=== PATIENT | female | born 1945 | race Caucasian/White ===

== ENCOUNTER 2020-07-06 09:27 | Outpatient (REF) | payer MEDICARE, SELFPAY ==
[2020-07-06 10:23] LABS: MANUAL DIFF FLAG NO
[2020-07-06 10:43] LABS: Basophils Percent Auto 0.5 % (0-2); Eosinophils Absolute Auto 0.2 X10*3/uL (0.0-0.4); Eosinophils Percent Auto 2.4 % (0-4); Hematocrit 47.9 % (37-47); Hemoglobin 15.5 g/dl (12.0-16.0); Imm Gran Abs Auto 0.02 X10*3/uL (0.00-0.03); Imm Gran Pct Auto 0.3 % (0.0-0.4); Lymphocytes Absolute Auto 1.7 X10*3/uL (1.2-4.9); Lymphocytes Percent Auto 22.5 % (20-40); Mean Corpuscular HGB Conc 32.4 g/dl (31.0-35.0); Mean Corpuscular Hemoglobin 30.2 pg (27.0-33.0); Mean Corpuscular Volume 93.2 fL (80-98); Mean Platelet Volume 9.7 fL (9.4-12.3); Monocytes Absolute Auto 0.4 X10*3/uL (0.1-1.2); Monocytes Percent Auto 5.6 % (2-11); Neutrophils Absolute Auto 5.2 X10*3/uL (2.0-8.3); Neutrophils Percent Auto 68.7 % (45-73); Platelet Count 205 X10*3/uL (160-400); Red Blood Count 5.14 X10*6/uL (4.20-5.50); Red Cell Distribution Width 13.8 % (11.0-16.0); White Blood Count 7.5 X10*3/uL (4.8-10.8)
[2020-07-06 11:09] LABS: Alanine Aminotransferase 9 U/L (0-31); Albumin Level 4.6 g/dL (3.5-5.0); Alkaline Phosphatase 68 U/L (39-117); Anion Gap 13 (12-20); Aspartate Amino Transferase 15 U/L (5-31); Bilirubin Direct 0.3 mg/dL (0.0-0.5); Bilirubin Total 0.5 mg/dL (0.0-1.0); Blood Urea Nitrogen 23 mg/dL (9-16); Calcium 9.2 mg/dL (8.4-10.2); Carbon Dioxide 29 mmol/L (22-29); Chloride 105 mmol/L (96-108); Cholesterol 165 mg/dL; Estimated Glomerular Filt Rate > 60; Glucose Fasting 92 mg/dL (60-99); HDL Cholesterol 52 mg/dL; LDL Cholesterol Calculated 100 mg/dl; Potassium 4.4 mmol/l (3.3-5.1); Sodium 143 mmol/L (135-145); Total Protein 6.9 g/dL (6.5-8.0); Triglycerides 66 mg/dL
[2020-07-06 11:12] LABS: Estimated Average Glucose 103 mg/dL; Hemoglobin A1c % 5.2 %
== END 2020-07-06 09:28 | disposition home or self-care (01) ==
LOC: HO.LAB 09:27
DX: I10 Essential (primary) hypertension (principal); E78.5 Hyperlipidemia, unspecified; E11.9 Type 2 diabetes mellitus without complications
CPT/HCPCS: 36415; 80053; 80061; 80076; 82248; 83036; 85025

== ENCOUNTER 2021-03-05 08:38 | Outpatient (REF) | payer MEDICARE, SELFPAY ==
[2021-03-05 09:39] LABS: MANUAL DIFF FLAG NO
[2021-03-05 09:51] LABS: Basophils Percent Auto 0.6 % (0-2); Eosinophils Absolute Auto 0.1 X10*3/uL (0.0-0.4); Eosinophils Percent Auto 1.9 % (0-4); Imm Gran Abs Auto 0.01 X10*3/uL (0.00-0.03); Imm Gran Pct Auto 0.2 % (0.0-0.4); Lymphocytes Absolute Auto 1.6 X10*3/uL (1.2-4.9); Lymphocytes Percent Auto 32.8 % (20-40); Mean Corpuscular HGB Conc 31.9 g/dl (31.0-35.0); Mean Corpuscular Hemoglobin 28.8 pg (27.0-33.0); Mean Corpuscular Volume 90.2 fL (80-98); Mean Platelet Volume 9.8 fL (9.4-12.3); Monocytes Absolute Auto 0.4 X10*3/uL (0.1-1.2); Monocytes Percent Auto 7.3 % (2-11); Neutrophils Absolute Auto 2.8 X10*3/uL (2.0-8.3); Neutrophils Percent Auto 57.2 % (45-73); Platelet Count 215 X10*3/uL (160-400); Red Blood Count 5.21 X10*6/uL (4.20-5.50); Red Cell Distribution Width 13.7 % (11.0-16.0); White Blood Count 4.8 X10*3/uL (4.8-10.8)
[2021-03-05 10:11] LABS: Alanine Aminotransferase < 6 U/L (0-31); Albumin Level 4.4 g/dL (3.5-5.0); Alkaline Phosphatase 102 U/L (39-117); Anion Gap 13 (12-20); Aspartate Amino Transferase 12 U/L (5-31); Bilirubin Total 0.9 mg/dL (0.0-1.0); Blood Urea Nitrogen 22 mg/dL (9-16); Calcium 9.6 mg/dL (8.4-10.2); Carbon Dioxide 29 mmol/L (22-29); Chloride 105 mmol/L (96-108); Cholesterol 174 mg/dL; Estimated Glomerular Filt Rate > 60; Glucose Fasting 92 mg/dL (60-99); HDL Cholesterol 51 mg/dL; LDL Cholesterol Calculated 107 mg/dl; Potassium 4.4 mmol/L (3.3-5.1); Sodium 143 mmol/L (135-145); Total Protein 7.1 g/dL (6.5-8.0); Triglycerides 82 mg/dL
[2021-03-05 10:17] LABS: Estimated Average Glucose 111 mg/dL; Hemoglobin A1c % 5.5 %
[2021-03-05 10:26] LABS: Thyroid Stimulating Hormone 2.84 uIU/mL (0.32-4.0)
== END 2021-03-05 08:39 | disposition home or self-care (01) ==
LOC: HO.LAB 08:38
PROVIDERS: PCP Internal Medicine; Visit Provider Internal Medicine
DX: Z00.00 Encounter for general adult medical examination without abnormal findings (principal); E03.9 Hypothyroidism, unspecified; E11.9 Type 2 diabetes mellitus without complications
CPT/HCPCS: 36415; 80053; 80061; 83036; 84443; 85025

== ENCOUNTER 2021-07-14 13:25 | Outpatient (REF) | payer MEDICARE, SELFPAY | END 2021-07-14 13:26 | disposition home or self-care (01) | LOC: HO.LAB 13:25 | PROVIDERS: PCP Internal Medicine; Visit Provider Obstetrics & Gynecology | DX: N95.0 Postmenopausal bleeding (principal); N88.9 Noninflammatory disorder of cervix uteri, unspecified | CPT/HCPCS: 57500; 88305; 99212 ==

== ENCOUNTER 2021-07-30 12:57 | Outpatient (REF) | payer MEDICARE, SELFPAY ==
--- NOTE | ~2021-07-30 | US_ITS ---
EXAMINATION: US PELVIS CLINICAL INFORMATION: Postmenopausal bleeding. COMPARISON: None. TECHNIQUE: Ultrasound of the pelvis is performed using both transabdominal and transvaginal transducers along with Doppler. Transvaginal imaging is performed due to inadequate visualization transabdominally. FINDINGS: Uterus: The uterus is anteverted, anteflexed and measures 5.4 cm in length, 2.6 cm in AP and 3.0 cm in transverse dimension. The cervix measures 2.0 x 0.7 x 1.7 cm. The double wall endometrial thickness is 0.4 cm. The uterus is smooth in contour and has normal myometrial echogenicity. There are scattered calcifications in the uterus with shadowing with no visible solid lesions seen to suspect any fibroids. There is a hypoechoic lesion in the cervix measuring 2.0 x 0.7 x 1.7 cm, question small polyp or mass. Adnexa: Both ovaries are visualized. There is normal color flow to the adnexa. There is no ovarian torsion. There is no pelvic ascites or fluid collection. Right ovary measures 1.8 x 1.2 x 1.0 cm and volume 1.1 mL Left ovary is not well seen. 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 US/US pelvic and transvaginal IMPRESSION: Suspect small polyp or mass in the cervix measuring 2 cm. Echogenic scattered calcifications in the uterus but no focal solid lesions seen. Right ovary is unremarkable. Left ovary is not seen. There is a right periureteral bladder diverticulum with diffuse bladder wall thickening.
== END 2021-07-30 12:58 | disposition home or self-care (01) ==
LOC: HO.US 12:57
PROVIDERS: PCP Internal Medicine; Visit Provider Obstetrics & Gynecology
DX: N95.0 Postmenopausal bleeding (principal)
CPT/HCPCS: 76830; 76856

== ENCOUNTER 2021-08-16 08:27 | Emergency (ER) | payer MEDICARE, SELFPAY ==
--- NOTE | 2021-08-16 08:34 | ED.FEMALEGU ---
HPI - Female Genitourinary General Chief complaint: Vaginal Bleeding Stated complaint: BLEEDING FROM PRIVATE PARTS Time Seen by Provider: 08/16/21 08:32 Source: patient and EMS Mode of arrival: EMS Limitations: no limitations History of Present Illness HPI Narrative: 76 y/o female with history of DM, HLD, and postmenopausal bleeding s/p recent biopsy of the cervix by Dr. Valdivia in June who presents to the ER with vaginal bleeding since last night. She denies any abdominal pain associated with it. Per documentation she has had abnormal vaginal bleeding for several months. She reports lightheadedness and dizziness associated with the bleeding today. On arrival there were large clots in her brief. MD elicited complaint: vaginal bleeding Onset (ago): hour(s) Location of symptoms: vaginal Severity: severe Consistency: intermittent Vaginal discharge: none Vaginal bleeding: heavy and clots Exacerbating factors: none Relieving factors: none Associated symptoms: weakness Treatment prior to arrival: none Related Data Home Medications Medication Instructions Recorded Confirmed aspirin 81 mg tablet,delayed 81 mg PO DAILY 11/12/20 08/16/21 release lisinopril 5 mg tablet 5 mg PO DAILY 11/12/20 08/16/21 latanoprost 0.005 % eye drops 1 drp OPHTHALMIC-LEFT BEDTIME 02/12/21 08/16/21 timolol maleate 0.5 % eye drops 1 drp OPHTHALMIC-LEFT DAILY 02/12/21 08/16/21 glipizide 5 mg tablet 2.5 mg PO BEDTIME 08/16/21 08/16/21 simvastatin 40 mg tablet 40 mg PO BEDTIME 08/16/21 08/16/21 Previous Rx's Medication Instructions Recorded metformin 500 mg tablet 500 mg PO BID #180 tab 12/19/20 clopidogrel 75 mg tablet 75 mg PO DAILY #90 tab 01/06/21 Allergies Allergy/AdvReac Type Severity Reaction Status Date / Time No Known Allergies Allergy Mild NONE Verified 07/14/21 13:56 Review of Systems Review of Systems: Constitutional: No Fever, No Chills ENT/Mouth: No sore throat, No Rhinorrhea, No Swallowing Difficulty Eyes: No Eye Pain, No Swelling, No Redness Cardiovascular: No Chest Pain, No SOB, No Orthopnea, No Edema Respiratory: No Cough, No Sputum, No Wheezing, No dyspnea Gastrointestinal: No Nausea, No Vomiting, No Diarrhea, No abdominal Pain, No Hematochezia, No Melena Genitourinary: No Dysuria, No Urinary Frequency, No Hematuria, +Vaginal bleeding Musculoskeletal: No joint pain, No Myalgias Skin: No Skin Lesions, No rash Neuro: + Weakness, No Numbness, + Dizziness, No Headache Psych: No Anxiety/Panic, No Depression Heme/Lymph: No Bruising, No Lymphadenopathy Endocrine: No Polyuria, No Polydipsia PMFSH Past Medical History Medical History Diabetes mellitus Family History Family History Mother No problems noted. Father No problems noted. Social History Social History Housing: Assisted Living Facility Alcohol intake: never Patient Tobacco Use Status: Never used Tobacco e-Cigarette/Vaping Use: Never Used Second Hand Smoke Exposure: No Use of substances other than those prescribed or required for medical reasons: No Advance Directives: No Advance Directives Information Provided: No service: No Current occupational status: retired Physical Exam Vital Signs: Vital Signs: Last Vital Signs Temp 97.6 F 08/16/21 08:45 Pulse 91 08/16/21 10:26 Resp 18 08/16/21 10:26 BP 127/84 08/16/21 10:26 Pulse Ox 94 08/16/21 10:26 BMI result Body Mass Index 20.5 Appearance: Alert. Oriented X3. No acute distress. Eyes: Pupils equal, round and reactive to light. ENT: Pharynx normal. Neck: Normal inspection. Neck supple. CVS: Normal heart rate and rhythm. Pulses normal. Respiratory: No respiratory distress. Breath sounds normal. Abdomen: Soft and nontender. +BS x4 Pelvic: Normal inspection of the external genitalia, speculum exam with a small amount of dark blood in the vaginal canal with no clots. No active bleeding. No lesions on the vaginal blanc. Cervix with erythema at the 12 o'clock position, no active bleeding. Bimanual exam with normal palpation of the uterus, no tenderness of the adnexa. Skin: Skin warm and dry. Normal skin color. Normal skin turgor. No rashes. Extremities: No lower extremity edema. Neuro: Oriented X 3. Grossly normal, nonfocal Course Course Course Narrative: 76-year-old female with history of postmenopausal vaginal bleeding presents to the ER today with vaginal bleeding since last night. She had passed several large clots. She was feeling lightheaded and dizzy this morning. On arrival her vital signs are stable. She does appear pale. Her baseline H&H is around . Will get the repeat labs, coags and perform pelvic exam to assess the extent of bleeding. She does had a recent cervical biopsy as well as the pelvic ultrasound. Pelvic ultrasound is showing some calcifications in the uterus but no large mass. Reevaluation(s) Reevaluation #1: Her H&H has gone down to 10/35 from , that H&H was from the Summer. No further bleeding in the ER. Remains hemodynamically stable, no tachycardia. No indication for blood transfusion at this time. Pelvic exam revealed small amount of dark blood in the vaginal canal, no clots. no active bleeding or site of bleeding identified. Spoke with Dr. Valdivia via TT - recommending endometrial biopsy, endocervical curettage as well as Urology c/s for thickened bladder wall. Discussed results of recent cervical biopsy and pelvic US with the patient and her daughter at the bedside as well as plan moving forward. They expressed understanding and will call Dr. Valdivia his office 1st thing Wednesday morning. At this time patient is stable for discharge home back to her assisted living. Comfortable with DC home. Consultations Consultation #1: Dr Valdivia EMPLOYMENT ADVISOR MDM - Female Genitourinary Lab Data Result diagrams: 08/16/21 09:26 08/16/21 09:26 Labs: Lab Results 08/16/21 08/16/21 08/16/21 Range/Units 09:01 09:26 09:26 WBC 12.7 H (4.8-10.8) X10*3/uL RBC 3.68 L (4.20-5.50) X10*6/uL Hgb 10.5 L (12.0-16.0) g/dl Hct 32.6 L (37.0-47.0) % MCV 88.6 (80.0-98.0) fL MCH 28.5 (27.0-33.0) pg MCHC 32.2 (31.0-35.0) g/dl RDW 14.6 (11.0-16.0) % Plt Count 178 (160-400) X10*3/uL MPV 10.0 (9.4-12.3) fL Immature Gran % (Auto) 0.4 (0.0-0.4) % Neut % (Auto) 89.2 H (45-73) % Lymph % (Auto) 6.6 L (20-40) % [place] % (Auto) 3.6 (2-11) % Eos % (Auto) 0.0 (0-4) % Baso % (Auto) 0.2 (0-2) % Lymph # (Auto) 0.8 L (1.2-4.9) X10*3/uL [place] # (Auto) 0.5 (0.1-1.2) X10*3/uL Eos # (Auto) 0.0 (0.0-0.4) X10*3/uL Baso # (Auto) 0.0 (0.0-0.2) X10*3/uL Abs Immat Gran (auto) 0.05 H (0.00-0.03) X10*3/uL Absolute Neuts (auto) 11.3 H (2.0-8.3) x10*3/uL Absolute Nucleated RBC 0.000 (0.0-0.012) X10*3/uL Nucleated RBC % (auto) 0.0 (0.0-0.2) /100WBC PT 12.7 (9.9-13.0) SEC INR 1.1 (0.9-1.1) APTT 27.1 (24.1-38.0) SEC Sodium (135-145) mmol/L Potassium (3.3-5.1) mmol/L Chloride (96-108) mmol/L Carbon Dioxide (22-29) mmol/L Anion Gap (12-20) BUN (9-16) mg/dL Creatinine (0.5-1.4) mg/dL Estim Creat Clear Calc Estimated GFR Random Glucose (60-115) mg/dL Calcium (8.4-10.2) mg/dL Magnesium (1.6-2.6) mg/dL Total Bilirubin (0.0-1.0) mg/dL Direct Bilirubin (0.0-0.5) mg/dL AST (5-31) U/L ALT (0-31) U/L Alkaline Phosphatase (39-117) U/L Total Protein (6.5-8.0) g/dL Albumin (3.5-5.0) g/dL COVID-19 (PO) Negative (Negative) COVID-19 Clin Com See Note 08/16/21 Range/Units 09:26 WBC (4.8-10.8) X10*3/uL RBC (4.20-5.50) X10*6/uL Hgb (12.0-16.0) g/dl Hct (37.0-47.0) % MCV (80.0-98.0) fL MCH (27.0-33.0) pg MCHC (31.0-35.0) g/dl RDW (11.0-16.0) % Plt Count (160-400) X10*3/uL MPV (9.4-12.3) fL Immature Gran % (Auto) (0.0-0.4) % Neut % (Auto) (45-73) % Lymph % (Auto) (20-40) % [place] % (Auto) (2-11) % Eos % (Auto) (0-4) % Baso % (Auto) (0-2) % Lymph # (Auto) (1.2-4.9) X10*3/uL [place] # (Auto) (0.1-1.2) X10*3/uL Eos # (Auto) (0.0-0.4) X10*3/uL Baso # (Auto) (0.0-0.2) X10*3/uL Abs Immat Gran (auto) (0.00-0.03) X10*3/uL Absolute Neuts (auto) (2.0-8.3) x10*3/uL Absolute Nucleated RBC (0.0-0.012) X10*3/uL Nucleated RBC % (auto) (0.0-0.2) /100WBC PT (9.9-13.0) SEC INR (0.9-1.1) APTT (24.1-38.0) SEC Sodium 141 (135-145) mmol/L Potassium 3.9 (3.3-5.1) mmol/L Chloride 111 H (96-108) mmol/L Carbon Dioxide 22 (22-29) mmol/L Anion Gap 12 (12-20) BUN 27 H (9-16) mg/dL Creatinine 0.85 (0.5-1.4) mg/dL Estim Creat Clear Calc 49.9 Estimated GFR > 60 Random Glucose 246 H (60-115) mg/dL Calcium 8.8 D (8.4-10.2) mg/dL Magnesium 1.9 (1.6-2.6) mg/dL Total Bilirubin 0.4 (0.0-1.0) mg/dL Direct Bilirubin 0.2 (0.0-0.5) mg/dL AST 11 (5-31) U/L ALT 8 (0-31) U/L Alkaline Phosphatase 52 D (39-117) U/L Total Protein 5.5 L D (6.5-8.0) g/dL Albumin 3.6 (3.5-5.0) g/dL COVID-19 (PO) (Negative) COVID-19 Clin Com Discharge Plan Discharge Clinical Impression: Abnormal vaginal bleeding in postmenopausal patient Anemia Qualifiers: Anemia type: iron deficiency Iron deficiency anemia type: chronic blood loss Qualified Code(s): D50.0 - Iron deficiency anemia secondary to blood loss (chronic) Patient Disposition: Home, Self-Care Instructions: Endometrial Biopsy (DC) Additional Instructions: Call Dr. Valdivia's office 1st thing on Wednesday to arrange an appointment. You need a biopsy of your uterus and a endocervical curettage to help determine cause of bleeding. If you develop new or worsening symptoms call 911 or come back to the ER for further evaluation. Prescriptions: No Action metformin 500 mg tablet 500 mg PO BID Qty: 180 RF: 8 clopidogrel 75 mg tablet 75 mg PO DAILY Qty: 90 RF: 8 simvastatin 40 mg tablet 40 mg PO BEDTIME RF: 0 glipizide 5 mg tablet 2.5 mg PO BEDTIME RF: 0 aspirin 81 mg tablet,delayed release (DR/EC) 81 mg PO DAILY RF: 0 lisinopril 5 mg tablet 5 mg PO DAILY RF: 0 latanoprost 0.005 % drops 1 drp ophthalmic-Left BEDTIME RF: 0 timolol maleate 0.5 % drops 1 drp ophthalmic-Left DAILY RF: 0 Referrals: Serge Davidson MD [Physician] - 1 week (thickened bladder wall) Frank Valdivia MD [Physician] - 2 days (vaginal bleeding, need bx)
[2021-08-16 08:45] VITALS: BP 102/70; BP 115/70; PULSE 110; PULSE 95; RESP 16; TEMP 36.4; O2SAT 95; O2SAT 98; BMI 20.5
[2021-08-16 09:22] LABS: COVID-19 Test Negative (Negative)
[2021-08-16 09:30] LABS: MANUAL DIFF FLAG NO
[2021-08-16 09:37] LABS: INTERNATIONAL NORM RATIO 1.1 (0.9-1.1); Prothrombin Time 12.7 SEC (9.9-13.0)
[2021-08-16 09:40] LABS: Basophils Percent Auto 0.2 % (0-2); Hematocrit 32.6 % (37.0-47.0); Hemoglobin 10.5 g/dl (12.0-16.0); Imm Gran Abs Auto 0.05 X10*3/uL (0.00-0.03); Imm Gran Pct Auto 0.4 % (0.0-0.4); Lymphocytes Absolute Auto 0.8 X10*3/uL (1.2-4.9); Lymphocytes Percent Auto 6.6 % (20-40); Mean Corpuscular HGB Conc 32.2 g/dl (31.0-35.0); Mean Corpuscular Hemoglobin 28.5 pg (27.0-33.0); Mean Corpuscular Volume 88.6 fL (80.0-98.0); Monocytes Absolute Auto 0.5 X10*3/uL (0.1-1.2); Monocytes Percent Auto 3.6 % (2-11); Neutrophils Absolute Auto 11.3 x10*3/uL (2.0-8.3); Neutrophils Percent Auto 89.2 % (45-73); Partial Thromboplastin Time 27.1 SEC (24.1-38.0); Platelet Count 178 X10*3/uL (160-400); Red Blood Count 3.68 X10*6/uL (4.20-5.50); Red Cell Distribution Width 14.6 % (11.0-16.0); White Blood Count 12.7 X10*3/uL (4.8-10.8)
--- NOTE | 2021-08-16 09:48 | PHA.MEDREC ---
Pharmacy Consult ? Medication Reconciliation Pharmacy has completed the medication reconciliation. Per patient, glipizide reduced to half tab
[2021-08-16 09:58] LABS: Alanine Aminotransferase 8 U/L (0-31); Albumin Level 3.6 g/dL (3.5-5.0); Alkaline Phosphatase 52 U/L (39-117); Anion Gap 12 (12-20); Aspartate Amino Transferase 11 U/L (5-31); Bilirubin Direct 0.2 mg/dL (0.0-0.5); Bilirubin Total 0.4 mg/dL (0.0-1.0); Blood Urea Nitrogen 27 mg/dL (9-16); Calcium 8.8 mg/dL (8.4-10.2); Carbon Dioxide 22 mmol/L (22-29); Chloride 111 mmol/L (96-108); Creatinine Clr Calc Pharmacy 49.9; Estimated Glomerular Filt Rate > 60; Glucose Random 246 mg/dL (60-115); Magnesium 1.9 mg/dL (1.6-2.6); Potassium 3.9 mmol/L (3.3-5.1); Sodium 141 mmol/L (135-145); Total Protein 5.5 g/dL (6.5-8.0)
--- NOTE | 2021-08-16 10:09 | PM.GYNCN ---
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 The patient was seen in the office for vaginal bleeding ultrasound was done showed 4 mm endometrial thickness, 2 cm cervical mass versus polyp, on physical exam the patient had abnormal cervical finding, cervical biopsy pathology was negative. Patient does not have any active bleeding, last 2 hours in the emergency room did not have any vaginal bleeding cc:: CC: COPYWRITING INTERN - Review of Systems Review of Systems ROS Unobtainable: All systems reviewed & are unremarkable except as noted in HPI and below Cardiovascular: Denies Palpatations, Loss of consciousness or Chest pain Respiratory: Denies Cough, Wheezing or Shortness of breath Musculoskeletal: Denies Low back pain Gastrointestinal: Denies Heartburn, Constipation, Diarrhea, Nausea or Vomiting Genitourinary: Denies Pain with urination, Burning with urination or Urinary frequency Neurological: Denies Migranes Psychological: Denies Depression OB PMF Past Medical History Medical History Diabetes mellitus Family History Family History Mother No problems noted. Father No problems noted. Social History Social History Household Members: None Housing: Assisted Living Facility Alcohol intake: never Patient Tobacco Use Status: Never used Tobacco e-Cigarette/Vaping Use: Never Used Second Hand Smoke Exposure: No service: No Current occupational status: retired [employer] Allergies Allergy/AdvReac Type Severity Reaction Status Date / Time No Known Allergies Allergy Mild NONE Verified 09/03/21 10:01 Active Medications: Current Medications Pharmacy Consult (Consult Rx Perform Med Rec) 1 each MISCELLANE ONCE PRN PRN Reason: Consult order Home Medications Medication Instructions Recorded Confirmed Last Taken Type aspirin 81 mg tablet,delayed 81 mg PO DAILY 11/12/20 08/20/21 08/15/21 History release lisinopril 5 mg tablet 5 mg PO DAILY 11/12/20 08/20/21 08/15/21 History latanoprost 0.005 % eye drops 1 drp OPHTHALMIC-LEFT BEDTIME 02/12/21 08/20/21 08/15/21 History timolol maleate 0.5 % eye drops 1 drp OPHTHALMIC-LEFT DAILY 02/12/21 08/20/21 08/15/21 History glipizide 5 mg tablet 2.5 mg PO BEDTIME 08/16/21 08/20/21 08/15/21 History simvastatin 40 mg tablet 40 mg PO BEDTIME 08/16/21 08/20/21 08/15/21 History GEAR CUTTING MACHINE SET UP OPERATOR Physical Exam Vitals Vital signs: Temp Pulse Resp BP Pulse Ox 97.6 F 95 16 115/70 95 08/16/21 08:45 08/16/21 08:45 08/16/21 08:45 08/16/21 08:45 08/16/21 08:45 BMI result Body Mass Index 20.5 Constitutional General Appearance: Healthy appearing, Well-nourished and Well-developed Psychiatric Mood and Affect: active and alert, normal mood and normal affect Skin Appearance: No rashes and No lesions Lungs Respiratory Effort: No intercostal retractions Auscultation: Clear to auscultation Cardiovascular Auscultation: RRR Abdomen Auscultation/Inspection/Palpation: Normal bowel sounds, Soft, Non-distended and No tenderness GEAR CUTTING MACHINE SET UP OPERATOR - Results Labs CBC & Chem 7: 08/16/21 09:26 08/16/21 09:26 Labs: Short CBC 08/16/21 Range/Units 09:26 WBC 12.7 H (4.8-10.8) X10*3/uL Hgb 10.5 L (12.0-16.0) g/dl Hct 32.6 L (37.0-47.0) % Plt Count 178 (160-400) X10*3/uL [facility] 08/16/21 09:26 Sodium 141 Potassium 3.9 Chloride 111 H Carbon Dioxide 22 BUN 27 H Creatinine 0.85 Calcium 8.8 D Liver Function 08/16/21 Range/Units 09:26 Total Bilirubin 0.4 (0.0-1.0) mg/dL Direct Bilirubin 0.2 (0.0-0.5) mg/dL AST 11 (5-31) U/L ALT 8 (0-31) U/L Alkaline Phosphatase 52 D (39-117) U/L Albumin 3.6 (3.5-5.0) g/dL Assessment and Plan (1) Postmenopausal bleeding: Status: Acute I Recommended to JL Lazaro the following: To perform a speculum/ Pelvic exam to evaluate the amount of vaginal bleeding,, if the patient is not having any active bleeding and is stable for discharge, will need to follow-up in our office [facility] for an endometrial/endocervical sampling to rule out endometrial /endocervical pathology including endometrial and/ or endocervical polyp, hyperplasia or cancer. (2) Bladder wall thickening: Status: Acute Since ultrasound showed up thickening of the bladder wall , I recommended for the patient to be followed up with Urology for further workup regarding this finding
[2021-08-16 10:26] VITALS: BP 127/84; PULSE 91; RESP 18; O2SAT 94
== END 2021-08-16 10:53 | disposition home or self-care (01) ==
PROVIDERS: Physician Assistant; Emergency Provider Emergency Medicine; PCP Internal Medicine
DX: N95.0 Postmenopausal bleeding (principal); D50.0 Iron deficiency anemia secondary to blood loss (chronic); E11.9 Type 2 diabetes mellitus without complications; Z79.84 Long term (current) use of oral hypoglycemic drugs; Z98.890 Other specified postprocedural states; Z20.822 Contact with and (suspected) exposure to COVID-19
CPT/HCPCS: 36415; 80048; 80076; 83735; 85025; 85610; 85730; 87635; 99283; 99284

== ENCOUNTER 2021-08-19 09:20 | Outpatient (REF) | payer MEDICARE, SELFPAY | END 2021-08-19 09:21 | disposition home or self-care (01) | LOC: HO.LAB 09:20 | PROVIDERS: PCP Internal Medicine; Visit Provider Obstetrics & Gynecology | DX: N88.9 Noninflammatory disorder of cervix uteri, unspecified (principal); N95.0 Postmenopausal bleeding; N32.3 Diverticulum of bladder; N32.89 Other specified disorders of bladder; R31.9 Hematuria, unspecified; E11.9 Type 2 diabetes mellitus without complications | CPT/HCPCS: 58100; 88305; 99212 ==

== ENCOUNTER 2021-08-19 10:51 | Inpatient (IN) | payer MEDICARE, SELFPAY ==
--- NOTE | ~2021-08-19 | CT_ITS ---
EXAMINATION: CT abdomen pelvis w con CLINICAL INFORMATION: Reason for Exam hematuria, anemia COMPARISON: Multiple prior CTs most recent May 2017 TECHNIQUE: Multidetector volumetric imaging was performed from the superior aspect of the liver through the pubic symphysis 100 mL of Omnipaque 300 injected Sagittal and coronal reformatted images were obtained on the technologist's workstation. This CT examination was performed using dose optimization techniques as appropriate, variously including the following: *Automated exposure control *Adjustment of mA and/or kV according to patient size (this includes techniques or standardized protocols for targeted exams where dose is matched to indication/reason for exam; i.e. extremities or head) *Use of iterative reconstruction technique DLP: 569 mGy-cm FINDINGS: LOWER THORAX: Included lung bases are clear. HEPATOBILIARY: No focal hepatic lesions. No biliary ductal dilatation. GALLBLADDER: Gallbladder not visualized might have been removed or contracted. SPLEEN: Spleen is normal in size. PANCREAS: No focal mass or ductal dilatation. STOMACH AND GASTROINTESTINAL TRACT: Stomach is grossly unremarkable. Evaluation of the bowels limited due to lack of contrast, no CT evidence of bowel obstruction. No CT evidence of appendicitis. ADRENALS: No adrenal nodules. KIDNEYS/URETERS: No hydronephrosis, stones or solid mass lesions. URINARY BLADDER: Heterogeneous solid mass in the posterior wall of the urinary bladder measures about 4.7 x 2.5 cm concerning for neoplasm including TCC. The fat plane between the urinary bladder and the uterine cervix has been obliterated. PELVIC VISCERA: Uterine calcifications probably underlying fibroids. PERITONEUM: No free air or fluid. LYMPH NODES: No lymphadenopathy. VASCULAR:There are heavy vascular calcifications. No aneurysm. BONES, ABDOMINAL WALL AND SOFT TISSUES: Right hip prosthesis bakari in place. Spondylosis of the lumbar spine. No pathologic fracture. CT/CT abdomen pelvis w con IMPRESSION: *Solid mass lesion in the posterior wall of the urinary bladder 4.7 x 2.5 cm concerning for neoplasm especially TCC, urology evaluation recommended. The fat between the urinary bladder and the adjacent uterine cervix has been obliterated. MRI with contrast could be utilized for further investigation. *No lymphadenopathy. Other noncritical findings include heavy vascular calcifications, spondylosis of the lumbar spine, calcifications in the uterus likely fibroid. (Referring physician staff is being called, to be alerted of the above findings and recommendations.) AJ
[2021-08-19 12:22] VITALS: BP 103/56; PULSE 91; RESP 17; TEMP 36.8; O2SAT 99; BMI 17.3
[2021-08-19 13:23] LABS: MANUAL DIFF FLAG NO
[2021-08-19 13:28] LABS: Basophils Absolute Auto 0.1 X10*3/uL (0.0-0.2); Basophils Percent Auto 0.5 % (0-2); Eosinophils Absolute Auto 0.1 X10*3/uL (0.0-0.4); Eosinophils Percent Auto 0.8 % (0-4); Hematocrit 28.3 % (37.0-47.0); Imm Gran Abs Auto 0.03 X10*3/uL (0.00-0.03); Imm Gran Pct Auto 0.3 % (0.0-0.4); Lymphocytes Absolute Auto 1.4 X10*3/uL (1.2-4.9); Lymphocytes Percent Auto 14.1 % (20-40); Mean Corpuscular HGB Conc 31.8 g/dl (31.0-35.0); Mean Corpuscular Hemoglobin 28.9 pg (27.0-33.0); Mean Platelet Volume 9.6 fL (9.4-12.3); Monocytes Absolute Auto 0.6 X10*3/uL (0.1-1.2); Monocytes Percent Auto 6.1 % (2-11); Neutrophils Absolute Auto 7.5 x10*3/uL (2.0-8.3); Neutrophils Percent Auto 78.2 % (45-73); Platelet Count 207 X10*3/uL (160-400); Red Blood Count 3.11 X10*6/uL (4.20-5.50); Red Cell Distribution Width 14.8 % (11.0-16.0); White Blood Count 9.6 X10*3/uL (4.8-10.8)
[2021-08-19 13:42] LABS: Anion Gap 12 (12-20); Blood Urea Nitrogen 27 mg/dL (9-16); Calcium 9.4 mg/dL (8.4-10.2); Carbon Dioxide 27 mmol/L (22-29); Chloride 111 mmol/L (96-108); Creatinine Clr Calc Pharmacy 45.9; Estimated Glomerular Filt Rate > 60; Glucose Random 135 mg/dL (60-115); Sodium 145 mmol/L (135-145)
--- NOTE | 2021-08-19 15:06 | ED_ITS ---
HPI - Female Genitourinary General Chief complaint: Urogenital-Female Stated complaint: Bladder issues Time Seen by Provider: 08/19/21 15:02 Source: patient and old records reviewed Mode of arrival: ambulatory Limitations: no limitations History of Present Illness MD elicited complaint: other (hematuria) Pertinent past history: other (intermittent hematuria for months) Onset (ago): month(s) Location of symptoms: suprapubic Severity: mild Consistency: intermittent Vaginal bleeding: none Urinary symptoms: Hematuria Exacerbating factors: urination Relieving factors: none Associated symptoms: denies other symptoms Treatment prior to arrival: none Related Data Home Medications Medication Instructions Recorded Confirmed aspirin 81 mg tablet,delayed 81 mg PO DAILY 11/12/20 08/16/21 release lisinopril 5 mg tablet 5 mg PO DAILY 11/12/20 08/16/21 latanoprost 0.005 % eye drops 1 drp OPHTHALMIC-LEFT BEDTIME 02/12/21 08/16/21 timolol maleate 0.5 % eye drops 1 drp OPHTHALMIC-LEFT DAILY 02/12/21 08/16/21 glipizide 5 mg tablet 2.5 mg PO BEDTIME 08/16/21 08/16/21 simvastatin 40 mg tablet 40 mg PO BEDTIME 08/16/21 08/16/21 Previous Rx's Medication Instructions Recorded metformin 500 mg tablet 500 mg PO BID #180 tab 12/19/20 clopidogrel 75 mg tablet 75 mg PO DAILY #90 tab 01/06/21 Allergies Allergy/AdvReac Type Severity Reaction Status Date / Time No Known Allergies Allergy Mild NONE Verified 08/19/21 09:48 Review of Systems Review of Systems: Constitutional : No Weight loss, No Fever, No Chills, No Fatigue, No Malaise ENT/Mouth : No sore throat, No Rhinorrhea Eyes: No Eye Pain, No Swelling, No Redness Cardiovascular : No Chest Pain, No SOB, No Dyspnea on Exertion, No Orthopnea, No Edema, No Palpitations Respiratory : No Cough, No Sputum, No Wheezing Gastrointestinal : No Nausea, No Vomiting, No Diarrhea, No Constipation, No abdominal Pain, No Hematochezia, No Melena Genitourinary : No Dysuria, No Urinary Frequency, pos Hematuria, Musculoskeletal : No joint pain, No Myalgias, No Joint Swelling Skin : No Skin Lesions, No rash Neuro : No Weakness, No Numbness, No Dizziness, No Headache Psych : No Anxiety/Panic, No Depression Heme/Lymph: No Bruising, No Bleeding,No Lymphadenopathy Endocrine : No Polyuria, No Polydipsia All other systems reviewed and are negative [facility] Past Medical History Medical History Diabetes mellitus Family History Family History Mother No problems noted. Father No problems noted. Social History Social History Housing: Assisted Living Facility Alcohol intake: never Patient Tobacco Use Status: Never used Tobacco e-Cigarette/Vaping Use: Never Used Second Hand Smoke Exposure: No Advance Directives: No Advance Directives Information Provided: No service: No Current occupational status: retired Physical Exam Vital Signs: Vital Signs: Last Vital Signs Temp 98.4 F 08/19/21 15:35 Pulse 78 08/19/21 15:35 Resp 14 08/19/21 15:35 BP 125/66 08/19/21 15:35 Pulse Ox 97 08/19/21 15:35 BMI result Body Mass Index 17.3 Appearance: Alert. Oriented X3. No acute distress. Eyes: Pupils equal, round and reactive to light. ENT: Pharynx normal. Neck: Normal inspection. Neck supple. CVS: Normal heart rate and rhythm. Pulses normal. Respiratory: No respiratory distress. Breath sounds normal. Abdomen: Soft and nontender. Skin: Skin warm and dry. pale skin color. Normal skin turgor. Extremities: No lower extremity edema. No calf ttp Neuro: Oriented X 3. No motor deficit. No sensory deficit. Course Course Course Narrative: daughter believes that plavix was due to stroke from 10 years ago she does not have any stents signed out to Dr. Sibley pending labs, UA, CT scan MDM - Female Genitourinary MDM Narrative Medical decision making narrative: 76 yo female hx of DM, HLD, hx of CVA per daughter on plavix and asa 81mg intermittent hematuria for months - sent by [facility] [employer] [facility] had biopsy but they feel this his hematuria and abnormal bladder on recent US - at this time repeat H/H, labs, UA and CT scan for renal/bladder mass. Dispo per results and findings. baseline hemoglobin 15 today 9 - she denies BIRD/CP to co Lab Data Result diagrams: 08/19/21 13:19 08/19/21 13:19 Labs: Lab Results 08/19/21 08/19/21 08/19/21 Range/Units 13:19 13:19 15:27 WBC 9.6 (4.8-10.8) X10*3/uL RBC 3.11 L (4.20-5.50) X10*6/uL Hgb 9.0 L (12.0-16.0) g/dl Hct 28.3 L (37.0-47.0) % MCV 91.0 (80.0-98.0) fL MCH 28.9 (27.0-33.0) pg MCHC 31.8 (31.0-35.0) g/dl RDW 14.8 (11.0-16.0) % Plt Count 207 (160-400) X10*3/uL MPV 9.6 (9.4-12.3) fL Immature Gran % (Auto) 0.3 (0.0-0.4) % Neut % (Auto) 78.2 H (45-73) % Lymph % (Auto) 14.1 L (20-40) % [place] % (Auto) 6.1 (2-11) % Eos % (Auto) 0.8 (0-4) % Baso % (Auto) 0.5 (0-2) % Lymph # (Auto) 1.4 (1.2-4.9) X10*3/uL [place] # (Auto) 0.6 (0.1-1.2) X10*3/uL Eos # (Auto) 0.1 (0.0-0.4) X10*3/uL Baso # (Auto) 0.1 (0.0-0.2) X10*3/uL Abs Immat Gran (auto) 0.03 (0.00-0.03) X10*3/uL Absolute Neuts (auto) 7.5 (2.0-8.3) x10*3/uL Absolute Nucleated RBC 0.000 (0.0-0.012) X10*3/uL Nucleated RBC % (auto) 0.0 (0.0-0.2) /100WBC Sodium 145 (135-145) mmol/L Potassium 5.0 D (3.3-5.1) mmol/L Chloride 111 H (96-108) mmol/L Carbon Dioxide 27 (22-29) mmol/L Anion Gap 12 (12-20) BUN 27 H (9-16) mg/dL Creatinine 0.80 (0.5-1.4) mg/dL Estim Creat Clear Calc 45.9 Estimated GFR > 60 Random Glucose 135 H (60-115) mg/dL Calcium 9.4 D (8.4-10.2) mg/dL Blood Type B Negative Antibody Screen NEGATIVE Discharge Plan Discharge Clinical Impression: Anemia Qualifiers: Anemia type: unspecified type Qualified Code(s): D64.9 - Anemia, unspecified Hematuria Qualifiers: Hematuria type: gross Qualified Code(s): R31.0 - Gross hematuria Prescriptions: No Action metformin 500 mg tablet 500 mg PO BID Qty: 180 RF: 8 clopidogrel 75 mg tablet 75 mg PO DAILY Qty: 90 RF: 8 simvastatin 40 mg tablet 40 mg PO BEDTIME RF: 0 glipizide 5 mg tablet 2.5 mg PO BEDTIME RF: 0 aspirin 81 mg tablet,delayed release (DR/EC) 81 mg PO DAILY RF: 0 lisinopril 5 mg tablet 5 mg PO DAILY RF: 0 latanoprost 0.005 % drops 1 drp ophthalmic-Left BEDTIME RF: 0 timolol maleate 0.5 % drops 1 drp ophthalmic-Left DAILY RF: 0
[2021-08-19 15:35] VITALS: BP 125/66; PULSE 78; RESP 14; TEMP 36.9; O2SAT 97
[2021-08-19] MEDS: iohexoL 350 MG/ML 100 ML INFUS..BTL IV (16:44)
[2021-08-19 20:56] LABS: Hematocrit 25.3 % (37.0-47.0)
[2021-08-19 20:57] LABS: Appearance Urine HAZY; Color Urine STRAW; Glucose Urine UA NEG (NEG); Leukocyte Esterase Urine 1+ (NEG); Nitrite Urine NEG (NEG); PH 5.5 (5.0-8.0); Specific Gravity - Urine <= 1.005 (1.005-1.025); UACC Culture Trigger YES; Urine Blood 3+ (NEG); Urine Ketones NEG (NEG); Urine Protein NEG (NEG-TRACE)
[2021-08-19 21:07] LABS: Bacteria Urine 1+ /LPF; RBC Urine 50-75 /HPF (0); Squamous Epithelial Cell Urine TRACE /LPF
[2021-08-19 23:09] VITALS: BP 101/52; PULSE 75; RESP 16; TEMP 36.7; O2SAT 97
[2021-08-19 23:42] LABS: Hematocrit 22.9 % (37.0-47.0); Hemoglobin 7.3 g/dl (12.0-16.0)
--- NOTE | 2021-08-19 23:57 | P.HPHOSP_ITS ---
History of Present Illness Date of Service: 08/19/21 Chief Complaint: hematuria 76-year-old female with a past medical history of hypertension, hyperlipidemia, diabetes, CVA with residual occasional speech difficulty, on aspirin Plavix presented to the hospital today with a chief complaint of hematuria. Spoke to the patient and patient's daughter. As per the patient's daughter patient has been having episodes of bleeding per vagina over the past few days; had a ultrasound as outpatient which showed vaginal polyp; has seen Dr Valdivia from OBGYN in the clinic who took biopsies and noted that patient is having hematuria; subsequently sent to the ER for further evaluation. Patient has been having intermittent episodes of bleeding-> for vaginal versus hematuria; had large episode on Wednesday which resolved on its own and had recurrent episodes of further intermittently; denies any fall trauma. Denies any chest pain palpitations. Denies any numbness tingling. Denies any fever chills cough. Denies any burning or frequency. Denied any signs of blood in the stool Review of all other systems is negative except mentioned above ER course: Per ER team patient had a CT abdomen done which showed bladder mass; initial discussed with urology on-call who suggested follow-up in the clinic; but the ER team repeated hemoglobin which noted drop in the hemoglobin; patient was given 1 unit of blood transfusion. Admitted to the hospital for further management. [facility] Medical History Diabetes mellitus Family History Mother No problems noted. Father No problems noted. Pertinent family history: as above Social History Housing: Assisted Living Facility Alcohol intake: never Patient Tobacco Use Status: Never used Tobacco e-Cigarette/Vaping Use: Never Used Second Hand Smoke Exposure: No Advance Directives: No Advance Directives Information Provided: No service: No Current occupational status: retired [employer] Allergies Allergy/AdvReac Type Severity Reaction Status Date / Time No Known Allergies Allergy Mild NONE Verified 08/19/21 09:48 Home Medications Medication Instructions Recorded Confirmed Last Taken Type aspirin 81 mg tablet,delayed 81 mg PO DAILY 11/12/20 08/16/21 08/15/21 History release lisinopril 5 mg tablet 5 mg PO DAILY 11/12/20 08/16/21 08/15/21 History latanoprost 0.005 % eye drops 1 drp OPHTHALMIC-LEFT BEDTIME 02/12/21 08/16/21 08/15/21 History timolol maleate 0.5 % eye drops 1 drp OPHTHALMIC-LEFT DAILY 02/12/21 08/16/21 08/15/21 History glipizide 5 mg tablet 2.5 mg PO BEDTIME 08/16/21 08/16/21 08/15/21 History simvastatin 40 mg tablet 40 mg PO BEDTIME 08/16/21 08/16/21 08/15/21 History Physical Exam Vital Signs and Narrative: Vital Signs: Last Vital Signs Temp 98.1 F 08/19/21 23:09 Pulse 75 08/19/21 23:09 Resp 16 08/19/21 23:09 BP 101/52 L 08/19/21 23:09 Pulse Ox 97 08/19/21 23:09 BMI result Body Mass Index 17.3 Gen: Appears be in no acute distress HEENT: NCAT, Moist mucosa. Pulmonary: Vesicular breath sounds, fair air entry CVS: Normal S1-S2 Abdomen: BS+, Soft, Nontender Extremities: Warm well perfused Neuro: Alert and awake. Results Labs CBC and Chem 7: 08/19/21 23:36 08/19/21 13:19 Labs: Laboratory Results - last 24 hr 08/19/21 08/19/21 08/19/21 13:19 13:19 15:27 MCV 91.0 MCH 28.9 MCHC 31.8 RDW 14.8 Plt Count 207 MPV 9.6 Immature Gran % (Auto) 0.3 Neut % (Auto) 78.2 H Lymph % (Auto) 14.1 L [place] % (Auto) 6.1 Eos % (Auto) 0.8 Baso % (Auto) 0.5 Lymph # (Auto) 1.4 [place] # (Auto) 0.6 Eos # (Auto) 0.1 Baso # (Auto) 0.1 Abs Immat Gran (auto) 0.03 Absolute Neuts (auto) 7.5 Absolute Nucleated RBC 0.000 Nucleated RBC % (auto) 0.0 Anion Gap 12 Estim Creat Clear Calc 45.9 Estimated GFR > 60 Random Glucose 135 H Calcium 9.4 D Urine Color Urine Appearance Urine pH Ur Specific [place] Urine Protein Urine Glucose (UA) Urine Ketones Urine Blood Urine Nitrite Ur Leukocyte Esterase Urine RBC Urine WBC Ur Squamous Epith Cells Urine Bacteria Blood Type B Negative Antibody Screen NEGATIVE 08/19/21 20:51 MCV MCH MCHC RDW Plt Count MPV Immature Gran % (Auto) Neut % (Auto) Lymph % (Auto) [place] % (Auto) Eos % (Auto) Baso % (Auto) Lymph # (Auto) [place] # (Auto) Eos # (Auto) Baso # (Auto) Abs Immat Gran (auto) Absolute Neuts (auto) Absolute Nucleated RBC Nucleated RBC % (auto) Anion Gap Estim Creat Clear Calc Estimated GFR Random Glucose Calcium Urine Color STRAW Urine Appearance HAZY Urine pH 5.5 Ur Specific [place] <= 1.005 Urine Protein NEG Urine Glucose (UA) NEG Urine Ketones NEG Urine Blood 3+ H Urine Nitrite NEG Ur Leukocyte Esterase 1+ H Urine RBC 50-75 H Urine WBC 10-14 H Ur Squamous Epith Cells TRACE Urine Bacteria 1+ Blood Type Antibody Screen Imaging Radiologist's Impressions: Impressions Abdomen/Pelvis CT 08/19/21 16:47 IMPRESSION: *Solid mass lesion in the posterior wall of the urinary bladder 4.7 x 2.5 cm concerning for neoplasm especially TCC, urology evaluation recommended. The fat between the urinary bladder and the adjacent uterine cervix has been obliterated. MRI with contrast could be utilized for further investigation. *No lymphadenopathy. Other noncritical findings include heavy vascular calcifications, spondylosis of the lumbar spine, calcifications in the uterus likely fibroid. (Referring physician staff is being called, to be alerted of the above findings and recommendations.) Assessment and Plan (1) Anemia: Qualifiers: Anemia type: unspecified type Qualified Code(s): D64.9 - Anemia, unspecified Status: Acute 76-year-old female with a past medical history of hypertension, hyperlipidemia, diabetes, CVA with residual occasional speech difficulty, on aspirin Plavix presented to the hospital today with a chief complaint of hematuria. Noted to have anemia. Admitted for the following Anemia: In the setting of hematuria/vaginal bleed. Patient's baseline hemoglobin was 15. Recent hemoglobin about 3 days ago was noted to be 10.2. On presentation today hemoglobin noted to be 9.2. Upon follow-up hemoglobin dropped to 7.3. But no active signs of bleeding. Stool guaiac pending Patient being transfused 1 unit of blood. Hold home aspirin/Plavix. Vaginal bleed: Patient already has seen customer service sales consultant; transfer is not ultrasound showed polyp. Biopsies were taken. Patient to continue to follow-up with Dr. Valdivia for results. Hematuria/bladder mass: CT scan showed bladder mass. Currently hematuria resolved. Patient was briefly on CBI. Urology was notified.-pending further input. Diabetes: Insulin sliding scale. Hold home oral hypoglycemic agents. History of glaucoma: Continue home eye drops DVT prophylaxis: SCD boots Code status: Full code. Discussed with the patient's daughter. Case management to follow-up in the morning for healthcare proxy forms. Quality Stroke Does the patient have a stroke diagnosis?: No VTE Prior VTE?: No VTE Risk Level:: Medical - moderate - high VTE Device Contraindication: N/A - Device Ordered VTE Drug Contraindication: Treatment Not Indicated
[2021-08-20] VITALS (14 sets, daily range): BP systolic 110–165; BP diastolic 60–93; PULSE 58–92; RESP 8–20; TEMP 36.4–37.7; O2SAT 94–100; BMI 18.3
--- NOTE | 2021-08-20 00:14 | PC.NURSE ---
I assumed care of this pt at 1900. Since that time the pt has remained alert, oriented x 2 (she often refers to her daughter as her mother, but is able to correct herself with some prompting). She is MAEx4, makes eye contact with staff and is calm and cooperative. She denies pain. Respirations are spontaneous and non-labored. Shortly after I assumed care I placed a 3-way Melendez in order to perform CBI. Approximately 1/3 of one bag of distillate have infused and at this time the urine being drained is clear - the initial irrigation produced pink-tinged urine. At this time the decision has been made to admit the patient for anemia - she will receive a blood transufsion. pt's daughter - Radhika - has been updated regarding this turn of events by Dr. Sibley. VSS. Afebrile. Will continue to monitor.
[2021-08-20 01:41] LABS: OBS Int Ctl Valid YES; OBS1 NEGATIVE (NEGATIVE)
[2021-08-20] MEDS: cefTRIAXone sodium 1 GM in 0.9 % Sodium Chloride 50 ML IV (01:45)
[2021-08-20] MEDS: 0.9 % Sodium Chloride Flush 3 ML SYRINGE IVFLUSH ×2 (02:26→07:35)
[2021-08-20 03:26] LABS: COVID-19 Test Negative (Negative); IDNOW Serial# 9DD0AD1C
--- NOTE | 2021-08-20 03:41 | PC.NURSE ---
Pt en route to inpatient bed assignment. 3-way jama remains in place per request hospitalist, irrigation has been D/C'd and 3rd port of Jama capped. Clear, yellow urine draining from catheter at this time. Pt has received 1unit of PRBC's and it has completed at this time./ The pt has been slepeing and wakes to verbal stimuli. She deniespain. She is grumpy, insisting that she prefers to stay in the ER rather than go to an inpatient bed assignment. I explained to the patient the importance of leaving the ER. She verbalized an understanding. Repsirations non-labored.
[2021-08-20] MEDS: Dextrose 5 % and 0.45 % NaCl 1,000 ML 50 ML IVCONT ×2 (04:37→18:33)
[2021-08-20 06:30] LABS: MANUAL DIFF FLAG NO
[2021-08-20 06:46] LABS: Basophils Percent Auto 0.5 % (0-2); Eosinophils Absolute Auto 0.2 X10*3/uL (0.0-0.4); Eosinophils Percent Auto 3.1 % (0-4); Hematocrit 29.7 % (37.0-47.0); Hemoglobin 9.3 g/dl (12.0-16.0); Imm Gran Abs Auto 0.02 X10*3/uL (0.00-0.03); Imm Gran Pct Auto 0.4 % (0.0-0.4); Lymphocytes Absolute Auto 1.4 X10*3/uL (1.2-4.9); Mean Corpuscular HGB Conc 31.3 g/dl (31.0-35.0); Mean Corpuscular Volume 89.5 fL (80.0-98.0); Monocytes Absolute Auto 0.5 X10*3/uL (0.1-1.2); Monocytes Percent Auto 8.4 % (2-11); Neutrophils Absolute Auto 3.4 x10*3/uL (2.0-8.3); Neutrophils Percent Auto 61.6 % (45-73); Platelet Count 149 X10*3/uL (160-400); Red Blood Count 3.32 X10*6/uL (4.20-5.50); Red Cell Distribution Width 16.5 % (11.0-16.0); White Blood Count 5.5 X10*3/uL (4.8-10.8)
[2021-08-20 06:53] LABS: Anion Gap 12 (12-20); Blood Urea Nitrogen 18 mg/dL (9-16); Calcium 8.6 mg/dL (8.4-10.2); Carbon Dioxide 25 mmol/L (22-29); Chloride 110 mmol/L (96-108); Creatinine Clr Calc Pharmacy 62.6; Estimated Glomerular Filt Rate > 60; Glucose Random 96 mg/dL (60-115); Potassium 4.1 mmol/L (3.3-5.1); Sodium 143 mmol/L (135-145)
[2021-08-20 07:24] LABS: Glucose, Whole Blood 105 mg/dL (60-115)
--- NOTE | 2021-08-20 07:39 | PHA.MEDREC ---
Pharmacy Consult ? Medication Reconciliation Pharmacy has completed the medication reconciliation. [facility] Rec was completed by Niraj luevano 08/16/2021. There are no medication changes. Brionna Smith, PharmD
--- NOTE | 2021-08-20 09:21 | MHC.CM.PN ---
CM attempted X2 to meet with Patient at bedside but she was sleeping so soundly CM did not want to disrupt Patient. Patient is on contact precautions so original IMM was left at bedside for Patient's review and a copy has been placed on the chart. CM spoke with Patient's Daughter/HCP/Radhika @ [phone]. 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 Home resume [employer] and new [facility] is the plan for dc and CM has initiated and will follow for dc planning. PCP is DR. Wyatt Oreilly and Patient has a walker and uses a cane to assist with mobility.
--- NOTE | 2021-08-20 10:22 | HO.PM.IMPN ---
Subjective Subjective Date of Service: 08/20/21 Interval History: Seen in f/u for hematuria, bladder mass and anemia, jama is clear this morning. Hemodynamically stable Review of Systems Gen: no fever Resp: no sob, no cough CV: no chest, no BIRD, no leg edema GI/: No n/v, no abd pain, no hematuria right now Neuro: No confusion Physical Exam Vital Signs: Vital Signs: Last Vital Signs Temp 99.8 F 08/20/21 07:21 Pulse 67 08/20/21 07:21 Resp 16 08/20/21 07:21 BP 144/76 H 08/20/21 07:21 Pulse Ox 96 08/20/21 07:21 BMI result Body Mass Index 18.3 Const: Other: General: AO X 3, no acute distress Resp: CTA bilateral CVS: S1,S2,RRR GI: +BS, NT, no distention : jama in clear urine Skin: No rash Neuro: motor grossly intact Psych: appropriate affect Objective Data Active Medications Acetaminophen (Acetaminophen 325 Mg Tablet) 650 mg PO Q6H PRN PRN Reason: Pain, Mild (Pain Scale 1-3) Dextrose (Dextrose 50 % 25 Gm/50 Ml Vial) 25 gm IVPUSH Q15M PRN; Protocol PRN Reason: per Hypoglycemia Standing Ord. Glucose (Glucose Gel 15 Gm Gel..Gram.) 15 gm PO Q15M PRN; Protocol PRN Reason: per Hypoglycemia Standing Ord. Dextrose/Sodium Chloride (D51/2ns) 1,000 mls @ 50 mls/hr IVCONT .Q20H [facility] Last Admin: 08/20/21 04:37 Dose: 50 mls/hr Documented by: DEMETRIA Ceftriaxone Sodium 1 gm/ (Sodium Chloride) 50 mls @ 100 mls/hr IV Q24H [facility] Last Infusion: 08/20/21 02:27 Dose: 0 mls/hr Documented by: CHIDI Insulin Human Lispro (Insulin Lispro 100 Unit/Ml 3 Ml Vial) 0 unit SUBCUT QIDACHS [facility]; Protocol Last Admin: 08/20/21 07:34 Dose: Not Given Documented by: ALLIE Non-Admin Reason: No Insulin Coverage Melatonin (Melatonin 3 Mg Tablet) 6 mg PO BEDTIME PRN PRN Reason: Insomnia Sodium Chloride (0.9 % Sodium Chloride Flush 3 Ml Syringe) 3 ml IVFLUSH QSHIFT [facility] Last Admin: 08/20/21 07:35 Dose: 3 ml Documented by: ALLIE Labs CBC & Chem 7: 08/20/21 05:54 08/20/21 05:54 Labs: Laboratory Results - last 24 hr 08/19/21 08/19/21 08/19/21 13:19 13:19 15:27 MCV 91.0 MCH 28.9 MCHC 31.8 RDW 14.8 Plt Count 207 MPV 9.6 Immature Gran % (Auto) 0.3 Neut % (Auto) 78.2 H Lymph % (Auto) 14.1 L [place] % (Auto) 6.1 Eos % (Auto) 0.8 Baso % (Auto) 0.5 Lymph # (Auto) 1.4 [place] # (Auto) 0.6 Eos # (Auto) 0.1 Baso # (Auto) 0.1 Abs Immat Gran (auto) 0.03 Absolute Neuts (auto) 7.5 Absolute Nucleated RBC 0.000 Nucleated RBC % (auto) 0.0 Anion Gap 12 Estim Creat Clear Calc 45.9 Estimated GFR > 60 POC Glucose Random Glucose 135 H Calcium 9.4 D Urine Color Urine Appearance Urine pH Ur Specific [place] Urine Protein Urine Glucose (UA) Urine Ketones Urine Blood Urine Nitrite Ur Leukocyte Esterase Urine RBC Urine WBC Ur Squamous Epith Cells Urine Bacteria Stool Occult Blood COVID-19 (PO) COVID-19 Clin Com Blood Type B Negative Antibody Screen NEGATIVE Crossmatch See Detail 08/19/21 08/20/21 08/20/21 20:51 01:30 03:01 MCV MCH MCHC RDW Plt Count MPV Immature Gran % (Auto) Neut % (Auto) Lymph % (Auto) [place] % (Auto) Eos % (Auto) Baso % (Auto) Lymph # (Auto) [place] # (Auto) Eos # (Auto) Baso # (Auto) Abs Immat Gran (auto) Absolute Neuts (auto) Absolute Nucleated RBC Nucleated RBC % (auto) Anion Gap Estim Creat Clear Calc Estimated GFR POC Glucose Random Glucose Calcium Urine Color STRAW Urine Appearance HAZY Urine pH 5.5 Ur Specific [place] <= 1.005 Urine Protein NEG Urine Glucose (UA) NEG Urine Ketones NEG Urine Blood 3+ H Urine Nitrite NEG Ur Leukocyte Esterase 1+ H Urine RBC 50-75 H Urine WBC 10-14 H Ur Squamous Epith Cells TRACE Urine Bacteria 1+ Stool Occult Blood NEGATIVE COVID-19 (PO) Negative COVID-19 Clin Com See Note Blood Type Antibody Screen Crossmatch 08/20/21 08/20/21 08/20/21 05:54 05:54 07:20 MCV 89.5 MCH 28.0 MCHC 31.3 RDW 16.5 H Plt Count 149 L D MPV 10.0 Immature Gran % (Auto) 0.4 Neut % (Auto) 61.6 Lymph % (Auto) 26.0 [place] % (Auto) 8.4 Eos % (Auto) 3.1 Baso % (Auto) 0.5 Lymph # (Auto) 1.4 [place] # (Auto) 0.5 Eos # (Auto) 0.2 Baso # (Auto) 0.0 Abs Immat Gran (auto) 0.02 Absolute Neuts (auto) 3.4 Absolute Nucleated RBC 0.000 Nucleated RBC % (auto) 0.0 Anion Gap 12 Estim Creat Clear Calc 62.6 Estimated GFR > 60 POC Glucose 105 Random Glucose 96 Calcium 8.6 D Urine Color Urine Appearance Urine pH Ur Specific [place] Urine Protein Urine Glucose (UA) Urine Ketones Urine Blood Urine Nitrite Ur Leukocyte Esterase Urine RBC Urine WBC Ur Squamous Epith Cells Urine Bacteria Stool Occult Blood COVID-19 (PO) COVID-19 Clin Com Blood Type Antibody Screen Crossmatch Microbiology Microbiology Results: Microbiology 08/19/21 21:03 Urine Culture - Preliminary Urine Catheterized - Jama Catheter Culture in progress. Assessment and Plan (1) Hematuria: Status: Acute (2) Anemia: Status: Acute Assessment and Plan: ?76-year-old female with a past medical history of hypertension, hyperlipidemia, diabetes, CVA with residual occasional speech difficulty, on aspirin Plavix presented to the hospital today with a chief complaint of hematuria.? Noted to have anemia #Acute blood loss anemia--probably originating from bladder in light bladdre mass #Hematuria -s/p transfusion -no actve bleed -further work up per Uro--will likely need cysto + Bx -hold plavix Vaginal bleed it is not clear, could all be part of hematuria, Patient already has seen electrical construction project manager; transfer is not ultrasound showed polyp.? Biopsies were taken.? Patient to continue to follow-up with Dr. Valdivia for results. bladder mass: CT scan showed bladder mass.? Currently hematuria resolved.? Patient was briefly on CBI.? Urology was notified.-pending further input. Diabetes:? Insulin sliding scale.? Hold home oral hypoglycemic agents.? History of glaucoma: Continue home eye drops DVT prophylaxis:? SCD boots Code status:? Full code.? Quality Stroke Does the patient have a stroke diagnosis?: No VTE Prior VTE?: No VTE Risk Level:: Medical - moderate - high VTE Device Contraindication: N/A - Device Ordered VTE Drug Contraindication: Treatment Not Indicated
[2021-08-20 11:10] LABS: Glucose, Whole Blood 93 mg/dL (60-115)
--- NOTE | 2021-08-20 15:51 | P.CONAN_ITS ---
HPI - Anesthesia Eval Consult details Narrative: 76F TURBT last dose of clopidogrel 2 days ago . h/o CVA with occassional speech difficulties . PMFSH Active Problems Active Problems: All Active Problems (Updated 08/19/21 @ 16:27 by Sangita Eaton DO) Anemia (Acute) Hematuria (Acute) Hematuria (Acute) Bladder wall thickening (Acute) Abnormal cervix finding (Acute) Postmenopausal bleeding (Acute) Hyperlipidemia (Acute) Blind left eye (Acute) Abnormal vaginal bleeding in postmenopausal patient (Acute) Diabetes mellitus (Acute) Past Medical History Medical History Diabetes mellitus Family History Family History Mother No problems noted. Father No problems noted. Family history of problems with anesthesia: No Surgical History History of Problems with Anesthesia: No Social History Social History Household Members: None Housing: Assisted Living Facility Alcohol intake: never Patient Tobacco Use Status: Never used Tobacco e-Cigarette/Vaping Use: Never Used Second Hand Smoke Exposure: No service: No Current occupational status: [employer] Allergies Allergy/AdvReac Type Severity Reaction Status Date / Time No Known Allergies Allergy Mild NONE Verified 08/19/21 09:48 Active Medications: Current Medications Acetaminophen (Acetaminophen 325 Mg Tablet) 650 mg PO Q6H PRN PRN Reason: Pain, Mild (Pain Scale 1-3) Dextrose (Dextrose 50 % 25 Gm/50 Ml Vial) 25 gm IVPUSH Q15M PRN; Protocol PRN Reason: per Hypoglycemia Standing Ord. Glucose (Glucose Gel 15 Gm Gel..Gram.) 15 gm PO Q15M PRN; Protocol PRN Reason: per Hypoglycemia Standing Ord. Dextrose/Sodium Chloride (D51/2ns) 1,000 mls @ 50 mls/hr IVCONT .Q20H [facility] Last Admin: 08/20/21 04:37 Dose: 50 mls/hr Documented by: Ceftriaxone Sodium 1 gm/ (Sodium Chloride) 50 mls @ 100 mls/hr IV Q24H [facility] Last Infusion: 08/20/21 02:27 Dose: Infused Documented by: Insulin Human Lispro (Insulin Lispro 100 Unit/Ml 3 Ml Vial) 0 unit SUBCUT QIDACHS [facility]; Protocol Last Admin: 08/20/21 11:28 Dose: Not Given Documented by: Melatonin (Melatonin 3 Mg Tablet) 6 mg PO BEDTIME PRN PRN Reason: Insomnia Sodium Chloride (0.9 % Sodium Chloride Flush 3 Ml Syringe) 3 ml IVFLU LALAALGIORGIO [facility] Last Admin: 08/20/21 07:35 Dose: 3 ml Documented by: Home Medications Medication Instructions Recorded Confirmed Last Taken Type aspirin 81 mg tablet,delayed 81 mg PO DAILY 11/12/20 08/20/21 08/15/21 History release lisinopril 5 mg tablet 5 mg PO DAILY 11/12/20 08/20/21 08/15/21 History latanoprost 0.005 % eye drops 1 drp OPHTHALMIC-LEFT BEDTIME 02/12/21 08/20/21 08/15/21 History timolol maleate 0.5 % eye drops 1 drp OPHTHALMIC-LEFT DAILY 02/12/21 08/20/21 08/15/21 History glipizide 5 mg tablet 2.5 mg PO BEDTIME 08/16/21 08/20/21 08/15/21 History simvastatin 40 mg tablet 40 mg PO BEDTIME 08/16/21 08/20/21 08/15/21 History Exam Exam Date and Time: August 20, 2021 1551 Height,Weight and Vital Signs: Height 5 ft 5 in Weight 49.9 kg Last Vital Signs Temp 98.4 F 08/20/21 11:01 Pulse 73 08/20/21 11:01 Resp 20 08/20/21 11:01 BP 146/76 H 08/20/21 11:01 Pulse Ox 95 08/20/21 11:01 Pertinent Lab Results Pertinent Lab Results: Laboratory Tests 08/19/21 08/19/21 08/19/21 13:19 13:19 15:27 WBC 9.6 RBC 3.11 L Hgb 9.0 L Hct 28.3 L MCV 91.0 MCH 28.9 MCHC 31.8 RDW 14.8 Plt Count 207 MPV 9.6 Immature Gran % (Auto) 0.3 Neut % (Auto) 78.2 H Lymph % (Auto) 14.1 L Webb % (Auto) 6.1 Eos % (Auto) 0.8 Baso % (Auto) 0.5 Lymph # (Auto) 1.4 Webb # (Auto) 0.6 Eos # (Auto) 0.1 Baso # (Auto) 0.1 Abs Immat Gran (auto) 0.03 Absolute Neuts (auto) 7.5 Absolute Nucleated RBC 0.000 Nucleated RBC % (auto) 0.0 Sodium 145 Potassium 5.0 D Chloride 111 H Carbon Dioxide 27 Anion Gap 12 BUN 27 H Creatinine 0.80 Estim Creat Clear Calc 45.9 Estimated GFR > 60 POC Glucose Random Glucose 135 H Calcium 9.4 D Urine Color Urine Appearance Urine pH Ur Specific [place] Urine Protein Urine Glucose (UA) Urine Ketones Urine Blood Urine Nitrite Ur Leukocyte Esterase Urine RBC Urine WBC Ur Squamous Epith Cells Urine Bacteria Stool Occult Blood COVID-19 (PO) COVID-19 [employer] Blood Type B Negative Antibody Screen NEGATIVE Crossmatch See Detail 08/19/21 08/19/21 08/19/21 20:51 20:51 23:36 WBC RBC Hgb 8.0 L 7.3 L Hct 25.3 L 22.9 L MCV MCH MCHC RDW Plt Count MPV Immature Gran % (Auto) Neut % (Auto) Lymph % (Auto) Webb % (Auto) Eos % (Auto) Baso % (Auto) Lymph # (Auto) Webb # (Auto) Eos # (Auto) Baso # (Auto) Abs Immat Gran (auto) Absolute Neuts (auto) Absolute Nucleated RBC Nucleated RBC % (auto) Sodium Potassium Chloride Carbon Dioxide Anion Gap BUN Creatinine Estim Creat Clear Calc Estimated GFR POC Glucose Random Glucose Calcium Urine Color STRAW Urine Appearance HAZY Urine pH 5.5 Ur Specific [place] <= 1.005 Urine Protein NEG Urine Glucose (UA) NEG Urine Ketones NEG Urine Blood 3+ H Urine Nitrite NEG Ur Leukocyte Esterase 1+ H Urine RBC 50-75 H Urine WBC 10-14 H Ur Squamous Epith Cells TRACE Urine Bacteria 1+ Stool Occult Blood COVID-19 (PO) COVID-19 [employer] Blood Type Antibody Screen Crossmatch 08/20/21 08/20/21 08/20/21 01:30 03:01 05:54 WBC 5.5 RBC 3.32 L Hgb 9.3 L D Hct 29.7 L D MCV 89.5 MCH 28.0 MCHC 31.3 RDW 16.5 H Plt Count 149 L D MPV 10.0 Immature Gran % (Auto) 0.4 Neut % (Auto) 61.6 Lymph % (Auto) 26.0 Webb % (Auto) 8.4 Eos % (Auto) 3.1 Baso % (Auto) 0.5 Lymph # (Auto) 1.4 Webb # (Auto) 0.5 Eos # (Auto) 0.2 Baso # (Auto) 0.0 Abs Immat Gran (auto) 0.02 Absolute Neuts (auto) 3.4 Absolute Nucleated RBC 0.000 Nucleated RBC % (auto) 0.0 Sodium Potassium Chloride Carbon Dioxide Anion Gap BUN Creatinine Estim Creat Clear Calc Estimated GFR POC Glucose Random Glucose Calcium Urine Color Urine Appearance Urine pH Ur Specific [place] Urine Protein Urine Glucose (UA) Urine Ketones Urine Blood Urine Nitrite Ur Leukocyte Esterase Urine RBC Urine WBC Ur Squamous Epith Cells Urine Bacteria Stool Occult Blood NEGATIVE COVID-19 (PO) Negative COVID-19 [employer] See Note Blood Type Antibody Screen Crossmatch 08/20/21 08/20/21 08/20/21 05:54 07:20 11:06 WBC RBC Hgb Hct MCV MCH MCHC RDW Plt Count MPV Immature Gran % (Auto) Neut % (Auto) Lymph % (Auto) Webb % (Auto) Eos % (Auto) Baso % (Auto) Lymph # (Auto) Webb # (Auto) Eos # (Auto) Baso # (Auto) Abs Immat Gran (auto) Absolute Neuts (auto) Absolute Nucleated RBC Nucleated RBC % (auto) Sodium 143 Potassium 4.1 Chloride 110 H Carbon Dioxide 25 Anion Gap 12 BUN 18 H Creatinine 0.62 Estim Creat Clear Calc 62.6 Estimated GFR > 60 POC Glucose 105 93 Random Glucose 96 Calcium 8.6 D Urine Color Urine Appearance Urine pH Ur Specific [place] Urine Protein Urine Glucose (UA) Urine Ketones Urine Blood Urine Nitrite Ur Leukocyte Esterase Urine RBC Urine WBC Ur Squamous Epith Cells Urine Bacteria Stool Occult Blood COVID-19 (PO) COVID-19 [employer] Blood Type Antibody Screen Crossmatch Airway Mallampati Class: III Neck ROM: Full Loose/Missing/Broken Teeth: Yes (Poor dentation ) Heart: rrr Lungs: bl breath sounds Assessment and Plan Final Anesthetic Review Family History of Problems with Anesthesia: No History of Problems with Anesthesia: No NPO: Yes ASA Class: III Final Preanesthetic Review: Meds/Allgs Chart Reviewed and Anes Risks/Benef Reviewed Patient Risk: High Procedure Risk: Intermediate Anesthetic Plan Anesthetic Plan: GA Disposition: Standard PACU
--- NOTE | 2021-08-20 16:36 | PC.NURSE ---
per dr. tompkins hold ordered pre-op antibiotic levaquin.patient received ceftriaxone antibiotic. roland avalos
--- NOTE | 2021-08-20 16:39 | P.CNUR_ITS ---
History of Present Illness Consult details Consult date: 08/20/21 Narrative: Sasha is a pleasant 76-year-old female Admitted to hospital with hematuria Imaging CT scan shows 3.5 cm posterior bladder lesion No history of smoking or chemical exposure No prior history of bladder cancer a family history of bladder issues Hematuria started 3 days ago and was persistent No prior history of recurrent UTI Discussed plan for TURBT to manage hematuria Review of Systems Constitutional: Constitutional: Reports as per HPI and Reports no additional constitutional complaints Cardiovascular: Cardiovascular: Reports as per HPI and Reports no additional cardiovascular complaints Respiratory: Respiratory: Reports as per HPI and Reports no additional respiratory complaints Gastrointestinal: Gastrointestinal: Reports as per HPI and Reports no additional gastrointestinal complaints Genitourinary: Genitourinary: Reports as per HPI Musculoskeletal: Musculoskeletal: Reports no additional musculoskeletal complaints and Reports as per HPI Neurologic: Reports system reviewed and no additional complaints, except as documented and Reports as per HPI PMF Past Medical History Medical History Diabetes mellitus Family History Family History Mother No problems noted. Father No problems noted. Social History Social History Household Members: None Housing: Assisted Living Facility Alcohol intake: never Patient Tobacco Use Status: Never used Tobacco e-Cigarette/Vaping Use: Never Used Second Hand Smoke Exposure: No service: No Current occupational status: retired [employer] Allergies Allergy/AdvReac Type Severity Reaction Status Date / Time No Known Allergies Allergy Mild NONE Verified 08/19/21 09:48 Active Medications: Current Medications Acetaminophen (Acetaminophen 325 Mg Tablet) 650 mg PO Q6H PRN PRN Reason: Pain, Mild (Pain Scale 1-3) Dextrose (Dextrose 50 % 25 Gm/50 Ml Vial) 25 gm IVPUSH Q15M PRN; Protocol PRN Reason: per Hypoglycemia Standing Ord. Fentanyl (Fentanyl Citrate/Pf 100 Mcg/2 Ml Vial) 25 mcg IVPUSH Q5M PRN; Protocol PRN Reason: Pain, Moderate (Pain Scale 4-6 Glucose (Glucose Gel 15 Gm Gel..Gram.) 15 gm PO Q15M PRN; Protocol PRN Reason: per Hypoglycemia Standing Ord. Dextrose/Sodium Chloride (D51/2ns) 1,000 mls @ 50 mls/hr IVCONT .Q20H [facility] Last Admin: 08/20/21 04:37 Dose: 50 mls/hr Documented by: Ceftriaxone Sodium 1 gm/ (Sodium Chloride) 50 mls @ 100 mls/hr IV Q24H [facility] Last Infusion: 08/20/21 02:27 Dose: Infused Documented by: Insulin Human Lispro (Insulin Lispro 100 Unit/Ml 3 Ml Vial) 0 unit SUBCUT QIDACHS [facility]; Protocol Last Admin: 08/20/21 11:28 Dose: Not Given Documented by: Melatonin (Melatonin 3 Mg Tablet) 6 mg PO BEDTIME PRN PRN Reason: Insomnia Ondansetron HCl (Ondansetron Hcl 4 Mg/2 Ml Vial) 4 mg IVPUSH ONCE PRN PRN Reason: Nausea and Vomiting Sodium Chloride (0.9 % Sodium Chloride Flush 3 Ml Syringe) 3 ml IVFLUSH QSHIFT [facility] Last Admin: 08/20/21 16:16 Dose: Not Given Documented by: Home Medications Medication Instructions Recorded Confirmed Last Taken Type aspirin 81 mg tablet,delayed 81 mg PO DAILY 11/12/20 08/20/21 08/15/21 History release lisinopril 5 mg tablet 5 mg PO DAILY 11/12/20 08/20/21 08/15/21 History latanoprost 0.005 % eye drops 1 drp OPHTHALMIC-LEFT BEDTIME 02/12/21 08/20/21 08/15/21 History timolol maleate 0.5 % eye drops 1 drp OPHTHALMIC-LEFT DAILY 02/12/21 08/20/21 08/15/21 History glipizide 5 mg tablet 2.5 mg PO BEDTIME 08/16/21 08/20/21 08/15/21 History simvastatin 40 mg tablet 40 mg PO BEDTIME 08/16/21 08/20/21 08/15/21 History Physical Exam Vital Signs: Vital Signs: Last Vital Signs Temp 98.4 F 08/20/21 16:22 Pulse 73 08/20/21 16:22 Resp 16 08/20/21 16:22 BP 163/77 H 08/20/21 16:22 Pulse Ox 96 08/20/21 16:22 BMI result Body Mass Index 18.3 Const: General: cooperative, healthy appearing, comfortable and no acute distress Orientation/consciousness: patient oriented x3 HENMT: Face and sinus: Yes normal facial exam Mouth: moist mucous membranes Neck: Neck: Yes normal visual inspection, Yes full ROM and Yes trachea midline Chest: Chest palpation & inspection: normal inspection of the chest Resp: Effort & Inspection: normal respiratory effort, able to speak in complete sentences and no respiratory distress GI: Inspection: Yes normal to inspection Back/Spine/Pelvis: Cervical Spine: normal cervical lordosis Thoracic/Lumbar Spine: thoracic and lumbar spine normal to inspection Skin: General skin exam: no rashes or lesions noted Neuro: General: patient oriented x3, tone normal and moves all extremities Extrem: General: Yes normal to inspection and Yes capillary refill normal Results Labs Result diagrams: 08/20/21 05:54 08/20/21 05:54 Labs: Abnormal lab results 08/19/21 08/19/21 08/19/21 Range/Units 15:27 20:51 20:51 RBC (4.20-5.50) X10*6/uL Hgb 8.0 L (12.0-16.0) g/dl Hct 25.3 L (37.0-47.0) % RDW (11.0-16.0) % Plt Count (160-400) X10*3/uL Chloride (96-108) mmol/L BUN (9-16) mg/dL Urine Blood 3+ H (NEG) Ur Leukocyte Esterase 1+ H (NEG) Urine RBC 50-75 H (0) /HPF Urine WBC 10-14 H (0-4) /HPF Crossmatch See Detail 08/19/21 08/20/21 08/20/21 Range/Units 23:36 05:54 05:54 RBC 3.32 L (4.20-5.50) X10*6/uL Hgb 7.3 L 9.3 L D (12.0-16.0) g/dl Hct 22.9 L 29.7 L D (37.0-47.0) % RDW 16.5 H (11.0-16.0) % Plt Count 149 L D (160-400) X10*3/uL Chloride 110 H (96-108) mmol/L BUN 18 H (9-16) mg/dL Urine Blood (NEG) Ur Leukocyte Esterase (NEG) Urine RBC (0) /HPF Urine WBC (0-4) /HPF Crossmatch Short CBC 08/19/21 08/19/21 08/20/21 Range/Units 20:51 23:36 05:54 WBC 5.5 (4.8-10.8) X10*3/uL Hgb 8.0 L 7.3 L 9.3 L D (12.0-16.0) g/dl Hct 25.3 L 22.9 L 29.7 L D (37.0-47.0) % Plt Count 149 L D (160-400) X10*3/uL BMP 08/20/21 05:54 Sodium 143 Potassium 4.1 Chloride 110 H Carbon Dioxide 25 BUN 18 H Creatinine 0.62 Calcium 8.6 D Urine 08/19/21 Range/Units 20:51 Urine Color STRAW Urine Appearance HAZY Urine pH 5.5 (5.0-8.0) Ur Specific [place] <= 1.005 (1.005-1.025) Urine Protein NEG (NEG-TRACE) MG/DL Urine Glucose (UA) NEG (NEG) MG/DL All other labs normal. Assessment and Plan (1) Bladder cancer: Status: Acute TURBT We discussed the nature of the decision and reasonable options for performing the above surgery. Interventions include TURBT with or without intravesical mitomycin administration. The relative uncertainties and benefits related to each alternate procedure were adequately discussed. General surgical risks including, but not limited to, pain, bleeding, infection, myocardial infarction, pulmonary embolus, deep vein thrombosis and cerebrovascular accident which may result in further hospitalization were discussed. Full disclosure of the procedure as well as all major risks, benefits and complications were discussed including but not limited to damage to the urethra or bladder neck, need for ureteric stenting, perforation of the bladder, chemical cystitis, chemical peritonitis, epididymitis, and meatal stenosis. The success rate of the procedure was discussed. Success of the procedure in the short-term does not necessarily guarantee that long-term success will be maintained. Suitable follow up will need to be maintained. The patient showed understanding of discussion and wishes to proceed as above. Procedures Date of Service Date of Service: 08/20/21
--- NOTE | 2021-08-20 16:40 | MHC.SHP ---
Pre-Procedural Eval Section A Date of Service: 08/20/21 The patient is an INPATIENT: Yes Changes since office visit: No Cold of Flu in the past 2 weeks, No New Medical Problems, No Changes in Medication and No Patient answered all questions The History & Physical has been completed within 30 days and I have reviewed it.: Yes Section B Chief Complaint: Anemia Allergies: Allergies Allergy/AdvReac Type Severity Reaction Status Date / Time No Known Allergies Allergy Mild NONE Verified 08/19/21 09:48 Plan Diagnosis/Plan: Unchanged (Bladder mass TURBT) I have reviewed the history and physical and performed a pertinent physical examination on my patient. No changes have occurred unless specified.
[2021-08-20 16:55] LABS: Glucose, Whole Blood 87 mg/dL (60-115)
--- NOTE | 2021-08-20 17:32 | P.OP_ITS ---
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 Admitted with hematuria. Imaging showed 4 cm posterior wall bladder mass. Recommendation for cystoscopy TURBT. Procedure: After informed consent was verified the patient was brought to the operating room and placed in a supine position. Anesthesia was administered per protocol. The patient patient was placed in a modified dorsal lithotomy position and prepped and draped in a sterile fashion. Safety pause time-out was performed. Antibiotics were confirmed. A 26 [place] continuous flow resectoscope was inserted per urethra. The bladder was examined its entirety. There was an inflamed area posteriorly on the posterior wall. The dome of the bladder also had what appeared to be a colovesical fistula with mucus and submucosal changes around the opening. There was also a secondary area on the right posterior wall that had mucosal changes. Decision made to proceed with regular cystoscope in biopsy of the 3 suspicious areas. After biopsy performed the resectoscope was used to fulgurate these areas and other areas of neovascularity. Changes were more consistent with tumor invading into the bladder. Based on imaging findings likely to be cervical in nature. Melendez catheter placed in order to encourage drainage for the next 48 hours to see if fistula may settle down. The patient tolerated the procedure well. They were extubated in the operating room and transferred in stable condition to the recovery area. Pathology: Bladder biopsy of suspicious areas Drains: Melendez catheter
[2021-08-20 18:14] LABS: Glucose, Whole Blood 80 mg/dL (60-115)
[2021-08-20 19:42] LABS: Glucose, Whole Blood 110 mg/dL (60-115)
[2021-08-21] VITALS (8 sets, daily range): BP systolic 125–145; BP diastolic 67–84; PULSE 66–72; RESP 16–20; TEMP 36.6–37.2; O2SAT 92–98
[2021-08-21] MEDS: cefTRIAXone sodium 1 GM in 0.9 % Sodium Chloride 50 ML IV (01:10)
[2021-08-21] MEDS: Dextrose 5 % and 0.45 % NaCl 1,000 ML 50 ML IVCONT ×2 (05:51→16:33)
[2021-08-21 07:20] LABS: Glucose, Whole Blood 179 mg/dL (60-115)
--- NOTE | 2021-08-21 07:35 | HO.POSTANES ---
Post Anesthesia Evaluation Post Anesthesia Evaluation Vital Signs: Vital Signs Temp Pulse Resp BP Pulse Ox 08/21/21 07:06 97.9 F 66 20 126/67 96 08/21/21 03:34 98.2 F 67 20 145/78 H 96 08/20/21 23:32 98.3 F 72 18 123/80 94 Anesthesia: General LMA Mental Status: Awake Pain Control: Satisfactory Nausea/Vomiting: None Hydration: Adequate Anesthesia-Related Issues: No Anes. Related Issues
[2021-08-21] MEDS: Insulin Lispro 100 UNIT/ML 3 ML VIAL SUBCUT (08:09)
[2021-08-21 11:03] LABS: Glucose, Whole Blood 94 mg/dL (60-115)
[2021-08-21 13:41] LABS: Hematocrit 31.7 % (37.0-47.0); Hemoglobin 10.2 g/dl (12.0-16.0); Mean Corpuscular HGB Conc 32.2 g/dl (31.0-35.0); Mean Corpuscular Hemoglobin 27.9 pg (27.0-33.0); Mean Corpuscular Volume 86.8 fL (80.0-98.0); Mean Platelet Volume 9.8 fL (9.4-12.3); Platelet Count 194 X10*3/uL (160-400); Red Blood Count 3.65 X10*6/uL (4.20-5.50); Red Cell Distribution Width 16.3 % (11.0-16.0); White Blood Count 6.1 X10*3/uL (4.8-10.8)
--- NOTE | 2021-08-21 15:18 | PM.UROPN ---
Subjective Subjective Date of Service: 08/21/21 Interval history: Hematuria has resolved Procedure yesterday with bladder biopsy and fulguration particularly of ulcerated area on dome of bladder CT scan examined with Radiology. Area of inflammation soft tissue in at anterior aspect of the bladder. Similar to posterior inflammation between bladder and cervix. Area around ulceration had been biopsied at time of procedure Melendez catheter can be removed tomorrow and she may follow-up in 2 weeks for pathology review Physical Exam Vital Signs: Vital Signs: Last Vital Signs Temp 98.5 F 08/21/21 10:53 Pulse 66 08/21/21 13:50 Resp 18 08/21/21 10:53 BP 138/77 08/21/21 13:50 Pulse Ox 98 08/21/21 13:50 BMI result Body Mass Index 18.3 Const: General: cooperative, healthy appearing, comfortable and no acute distress Orientation/consciousness: patient oriented x3 HENMT: Face and sinus: Yes normal facial exam Mouth: moist mucous membranes Neck: Neck: Yes normal visual inspection, Yes full ROM and Yes trachea midline Chest: Chest palpation & inspection: normal inspection of the chest Resp: Effort & Inspection: normal respiratory effort, able to speak in complete sentences and no respiratory distress GI: Inspection: Yes normal to inspection Back/Spine/Pelvis: Cervical Spine: normal cervical lordosis Thoracic/Lumbar Spine: thoracic and lumbar spine normal to inspection Skin: General skin exam: no rashes or lesions noted Neuro: General: patient oriented x3, tone normal and moves all extremities Extrem: General: Yes normal to inspection and Yes capillary refill normal Urology Results Labs CBC & Chem 7: 08/21/21 13:20 08/20/21 05:54 Labs: Laboratory Results - last 24 hr 08/20/21 08/20/21 08/20/21 16:44 17:51 19:37 WBC RBC Hgb Hct MCV MCH MCHC RDW Plt Count MPV Absolute Nucleated RBC Nucleated RBC % (auto) POC Glucose 87 80 110 08/21/21 08/21/21 08/21/21 07:11 10:53 13:20 WBC 6.1 RBC 3.65 L Hgb 10.2 L Hct 31.7 L MCV 86.8 MCH 27.9 MCHC 32.2 RDW 16.3 H Plt Count 194 D MPV 9.8 Absolute Nucleated RBC 0.000 Nucleated RBC % (auto) 0.0 POC Glucose 179 H 94 Progress Note: A&P Assessment and plan (1) Bladder wall thickening: Status: Acute (2) Abnormal cervix finding: Status: Acute Assessment and Plan: Hematuria with bladder lesion Stable and recovering Fall Risk Details Current Medications: Current Medications Acetaminophen (Acetaminophen 325 Mg Tablet) 650 mg PO Q6H PRN PRN Reason: Pain, Mild (Pain Scale 1-3) Albuterol/Ipratropium (Albuterol/Iprat 2.5/0.5mg 3 Ml Ampul.Neb) 3 ml INHALE RQ4H PRN PRN Reason: Shortness of Breath Dextrose (Dextrose 50 % 25 Gm/50 Ml Vial) 25 gm IVPUSH Q15M PRN; Protocol PRN Reason: per Hypoglycemia Standing Ord. Fentanyl (Fentanyl Citrate/Pf 100 Mcg/2 Ml Vial) 25 mcg IVPUSH Q5M PRN; Protocol PRN Reason: Pain, Moderate (Pain Scale 4-6 Glucose (Glucose Gel 15 Gm Gel..Gram.) 15 gm PO Q15M PRN; Protocol PRN Reason: per Hypoglycemia Standing Ord. Dextrose/Sodium Chloride (D51/2ns) 1,000 mls @ 50 mls/hr IVCONT .Q20H [facility] Last Admin: 08/21/21 05:51 Dose: 50 mls/hr Documented by: Ceftriaxone Sodium 1 gm/ (Sodium Chloride) 50 mls @ 100 mls/hr IV Q24H [facility] Last Infusion: 08/21/21 01:53 Dose: Infused Documented by: Insulin Human Lispro (Insulin Lispro 100 Unit/Ml 3 Ml Vial) 0 unit SUBCUT QIDACHS [facility]; Protocol Last Admin: 08/21/21 13:50 Dose: Not Given Documented by: Melatonin (Melatonin 3 Mg Tablet) 6 mg PO BEDTIME PRN PRN Reason: Insomnia Ondansetron HCl (Ondansetron Hcl 4 Mg/2 Ml Vial) 4 mg IVPUSH ONCE PRN PRN Reason: Nausea and Vomiting Sodium Chloride (0.9 % Sodium Chloride Flush 3 Ml Syringe) 3 ml IVFLUSH QSHIFT [facility] Last Admin: 08/21/21 08:09 Dose: Not Given Documented by: Time Spent With Patient Time: Total time spent is greater than 50% in coordination of care (as documented) at patient's floor/unit and/or counseling patient: Time with patient: less than 15 minutes No Severe Sepsis: No Severe Sepsis Progress Note: Quality Stroke Does the patient have a stroke diagnosis?: No
--- NOTE | 2021-08-21 16:09 | HO.PM.IMPN ---
Subjective Subjective Date of Service: 08/21/21 Interval History: follow-up on hematuria. No further bleeding. Hemoglobin and hematocrit is stable Review of Systems no hematuria, no fever, no abdominal pain. Physical Exam Vital Signs: Vital Signs: Last Vital Signs Temp 98.3 F 08/21/21 15:45 Pulse 67 08/21/21 15:45 Resp 16 08/21/21 15:45 BP 125/84 08/21/21 15:45 Pulse Ox 96 08/21/21 15:45 BMI result Body Mass Index 18.3 Const: Other: General: AO X 3, no acute distress Resp: CTA bilateral CVS: S1,S2,RRR GI: +BS, NT, no distention Skin: No rash Neuro: motor grossly intact Psych: appropriate affect Objective Data Active Medications Acetaminophen (Acetaminophen 325 Mg Tablet) 650 mg PO Q6H PRN PRN Reason: Pain, Mild (Pain Scale 1-3) Albuterol/Ipratropium (Albuterol/Iprat 2.5/0.5mg 3 Ml Ampul.Neb) 3 ml INHALE RQ4H PRN PRN Reason: Shortness of Breath Dextrose (Dextrose 50 % 25 Gm/50 Ml Vial) 25 gm IVPUSH Q15M PRN; Protocol PRN Reason: per Hypoglycemia Standing Ord. Fentanyl (Fentanyl Citrate/Pf 100 Mcg/2 Ml Vial) 25 mcg IVPUSH Q5M PRN; Protocol PRN Reason: Pain, Moderate (Pain Scale 4-6 Glucose (Glucose Gel 15 Gm Gel..Gram.) 15 gm PO Q15M PRN; Protocol PRN Reason: per Hypoglycemia Standing Ord. Dextrose/Sodium Chloride (D51/2ns) 1,000 mls @ 50 mls/hr IVCONT .Q20H [facility] Last Admin: 08/21/21 05:51 Dose: 50 mls/hr Documented by: FRANCISCA Ceftriaxone Sodium 1 gm/ (Sodium Chloride) 50 mls @ 100 mls/hr IV Q24H [facility] Last Infusion: 08/21/21 01:53 Dose: 0 mls/hr Documented by: FRANCISCA Insulin Human Lispro (Insulin Lispro 100 Unit/Ml 3 Ml Vial) 0 unit SUBCUT QIDACHS [facility]; Protocol Last Admin: 08/21/21 13:50 Dose: Not Given Documented by: DIEGO Non-Admin Reason: No Insulin Coverage Melatonin (Melatonin 3 Mg Tablet) 6 mg PO BEDTIME PRN PRN Reason: Insomnia Ondansetron HCl (Ondansetron Hcl 4 Mg/2 Ml Vial) 4 mg IVPUSH ONCE PRN PRN Reason: Nausea and Vomiting Sodium Chloride (0.9 % Sodium Chloride Flush 3 Ml Syringe) 3 ml IVFLUSH QSHIFT [facility] Last Admin: 08/21/21 08:09 Dose: Not Given Documented by: DIEGO Non-Admin Reason: IV Running Labs CBC & Chem 7: 08/21/21 13:20 08/20/21 05:54 Labs: Laboratory Results - last 24 hr 08/20/21 08/20/21 08/20/21 16:44 17:51 19:37 MCV MCH MCHC RDW Plt Count MPV Absolute Nucleated RBC Nucleated RBC % (auto) POC Glucose 87 80 110 08/21/21 08/21/21 08/21/21 07:11 10:53 13:20 MCV 86.8 MCH 27.9 MCHC 32.2 RDW 16.3 H Plt Count 194 D MPV 9.8 Absolute Nucleated RBC 0.000 Nucleated RBC % (auto) 0.0 POC Glucose 179 H 94 Microbiology Microbiology Results: Microbiology 08/19/21 21:03 Urine Culture - Preliminary Urine Catheterized - Jama Catheter Gram negative bakari Assessment and Plan (1) Hematuria: Status: Acute (2) Anemia: Status: Acute Assessment and Plan: 76-year-old female with a past medical history of hypertension, hyperlipidemia, diabetes, CVA with residual occasional speech difficulty, on aspirin Plavix presented to the hospital today with a chief complaint of hematuria.? Noted to have anemia #Acute blood loss anemia--probably originating from bladder in light bladdre thickening, had cystoscopy with Bx on 08/20, Bx pending, there was concern raised possible fistula but close review of radiographs showed no fistula, =ss/p tranfsusion, H and H is stable -no actve bleed -further work up per Uro--will likely need cysto + Bx -hold plavix -Uro recommends removing jama in the morning Vaginal bleed it is not clear, could all be part of hematuria, Patient already has seen pug mill operator helper; transfer is not ultrasound showed polyp.? Biopsies were taken.? Patient to continue to follow-up with Dr. Valdivia for results. bladder mass: CT scan showed bladder mass.? Currently hematuria resolved.? Patient was briefly on CBI.? Urology was notified.-pending further input. Diabetes:? Insulin sliding scale.? Hold home oral hypoglycemic agents.? History of glaucoma: Continue home eye drops DVT prophylaxis:? SCD boots Code status:? Full code.? Quality Stroke Does the patient have a stroke diagnosis?: No VTE Prior VTE?: No VTE Risk Level:: Medical - moderate - high VTE Device Contraindication: N/A - Device Ordered VTE Drug Contraindication: Treatment Not Indicated
[2021-08-21 16:13] LABS: Glucose, Whole Blood 121 mg/dL (60-115)
[2021-08-21 20:09] LABS: Glucose, Whole Blood 108 mg/dL (60-115)
[2021-08-22] MEDS: cefTRIAXone sodium 1 GM in 0.9 % Sodium Chloride 50 ML IV (00:39)
[2021-08-22] MEDS: 0.9 % Sodium Chloride Flush 3 ML SYRINGE IVFLUSH ×2 (00:39→16:15)
--- NOTE | 2021-08-22 01:35 | PC.NURSE ---
Addendum entered by Maggie Duran RN 08/22/21 06:31: x2 large incontinent episodes overnight Addendum entered by Maggie Duran RN 08/22/21 02:13: 0200; Patient incontinent and voided 150 cc in bedside commode. Original Note: Patient pulled out jama catheter right before change of shift 1900. Patient has not voided, encouraged patient up to the commode 2 times, still not able to void. 0130; Bladder scanned patient, shows 240cc. Dr. Ford made aware via [employer].
[2021-08-22 03:38] VITALS: BP 151/72; PULSE 62; RESP 18; TEMP 36.4; O2SAT 96
[2021-08-22 07:07] VITALS: BP 150/71; PULSE 68; RESP 18; TEMP 36.4; O2SAT 97
[2021-08-22 07:39] LABS: Glucose, Whole Blood 108 mg/dL (60-115)
--- NOTE | 2021-08-22 11:43 | MHC.CLN ---
F/U DIET ADVANCED TO REGULAR. REVIEW OF POC GLUCOSE 08/20 TO 08/22 SHOWS RANGE OF 80-179 WITH 2 VALUES ABOVE NORMAL LIMIT. ATE 100% X 1 MEAL. CONTINUE REGULAR DIET AND CONSIDER THERAPEUTIC DIET BASED ON BLOOD SUGARS
[2021-08-22 12:17] VITALS: BP 161/93; PULSE 90; RESP 16; TEMP 37.2; O2SAT 97
--- NOTE | 2021-08-22 12:23 | P.PNIM_ITS ---
Subjective Subjective Date of Service: 08/22/21 Interval History: follow-up on hematuria. No further bleeding. Hemoglobin and hematocrit is stable Review of Systems no hematuria, no fever, no abdominal pain. Physical Exam Vital Signs: Vital Signs: Last Vital Signs Temp 99 F 08/22/21 12:17 Pulse 90 08/22/21 12:17 Resp 16 08/22/21 12:17 BP 161/93 H 08/22/21 12:17 Pulse Ox 97 08/22/21 12:17 BMI result Body Mass Index 18.3 Const: Other: General: AO X 3, no acute distress Resp: CTA bilateral CVS: S1,S2,RRR GI: +BS, NT, no distention Skin: No rash Neuro: motor grossly intact Psych: appropriate affect Objective Data Active Medications Acetaminophen (Acetaminophen 325 Mg Tablet) 650 mg PO Q6H PRN PRN Reason: Pain, Mild (Pain Scale 1-3) Albuterol/Ipratropium (Albuterol/Iprat 2.5/0.5mg 3 Ml Ampul.Neb) 3 ml INHALE RQ4H PRN PRN Reason: Shortness of Breath Dextrose (Dextrose 50 % 25 Gm/50 Ml Vial) 25 gm IVPUSH Q15M PRN; Protocol PRN Reason: per Hypoglycemia Standing Ord. Fentanyl (Fentanyl Citrate/Pf 100 Mcg/2 Ml Vial) 25 mcg IVPUSH Q5M PRN; Protocol PRN Reason: Pain, Moderate (Pain Scale 4-6 Glucose (Glucose Gel 15 Gm Gel..Gram.) 15 gm PO Q15M PRN; Protocol PRN Reason: per Hypoglycemia Standing Ord. Dextrose/Sodium Chloride (D51/2ns) 1,000 mls @ 50 mls/hr IVCONT .Q20H [facility] Last Admin: 08/21/21 16:33 Dose: 50 mls/hr Documented by: DIEGO Ceftriaxone Sodium 1 gm/ (Sodium Chloride) 50 mls @ 100 mls/hr IV Q24H [facility] Last Infusion: 08/22/21 01:17 Dose: 0 mls/hr Documented by: YAW Insulin Human Lispro (Insulin Lispro 100 Unit/Ml 3 Ml Vial) 0 unit SUBCUT QIDACHS [facility]; Protocol Last Admin: 08/22/21 08:45 Dose: Not Given Documented by: CHARLA Non-Admin Reason: No Insulin Coverage Melatonin (Melatonin 3 Mg Tablet) 6 mg PO BEDTIME PRN PRN Reason: Insomnia Ondansetron HCl (Ondansetron Hcl 4 Mg/2 Ml Vial) 4 mg IVPUSH ONCE PRN PRN Reason: Nausea and Vomiting Sodium Chloride (0.9 % Sodium Chloride Flush 3 Ml Syringe) 3 ml IVFLUSH QSHIFT [facility] Last Admin: 08/22/21 09:14 Dose: Not Given Documented by: CHARLA Non-Admin Reason: IV Running Labs CBC & Chem 7: 08/21/21 13:20 08/20/21 05:54 Labs: Laboratory Results - last 24 hr 08/21/21 08/21/21 08/21/21 13:20 16:10 20:06 MCV 86.8 MCH 27.9 MCHC 32.2 RDW 16.3 H Plt Count 194 D MPV 9.8 Absolute Nucleated RBC 0.000 Nucleated RBC % (auto) 0.0 POC Glucose 121 H 108 08/22/21 07:09 MCV MCH MCHC RDW Plt Count MPV Absolute Nucleated RBC Nucleated RBC % (auto) POC Glucose 108 Microbiology Microbiology Results: Microbiology 08/19/21 21:03 Urine Culture - Final Urine Catheterized - Melendez Catheter Escherichia coli Assessment and Plan (1) Hematuria: Status: Acute (2) Anemia: Status: Acute Assessment and Plan: 76-year-old female with a past medical history of hypertension, hyperlipidemia, diabetes, CVA with residual occasional speech difficulty, on aspirin Plavix pr esented to the hospital today with a chief complaint of hematuria.? Noted to have anemia #Acute blood loss anemia--probably originating from bladder in light bladdre thickening, had cystoscopy with Bx on 08/20, Bx pending, there was concern raised possible fistula but close review of radiographs showed no fistula, =ss/p tranfsusion, H and H is stable -no actve bleed -Had cysto, Bx taken -hold plavix -Melendez removed Vaginal bleed it is not clear, could all be part of hematuria, Patient already has seen planer setup operator; transfer is not ultrasound showed polyp.? Biopsies were taken.? Patient to continue to follow-up with Dr. Valdivia for results. bladder mass: CT scan showed bladder mass.? Currently hematuria resolved.? Patient was briefly on CBI.? Urology was notified.-pending further input. Diabetes:? Insulin sliding scale.? Hold home oral hypoglycemic agents.? History of glaucoma: Continue home eye drops DVT prophylaxis:? SCD boots Code status:? Full code.? PT is recommending STR Quality Stroke Does the patient have a stroke diagnosis?: No VTE Prior VTE?: No VTE Risk Level:: Medical - moderate - high VTE Device Contraindication: N/A - Device Ordered VTE Drug Contraindication: Treatment Not Indicated
[2021-08-22 12:25] LABS: Glucose, Whole Blood 150 mg/dL (60-115)
--- NOTE | 2021-08-22 12:40 | MHC.CM.PN ---
PER PREVIOUS CM NOTES, PT REFUSING STR. CM MET WITH PT TODAY, SHE IS NOW REPORTING SHE HAS BEEN TO [facility] IN THE PAST AND WOULD BE AGREEABLE TO GOING THERE AT DC FOR STR. CM CALLED PTS DAUGHTER, IZABEL ([phone]) WHO REPORTED SHE HAD SPOKEN TO THE PREVIOUS CM AND WAS AWARE THE PT HAD BEEN REFUSING STR HOWEVER, SINCE PT IS NOW AGREEABLE SHE WOULD PREFER THAT DC PLAN PT LIVES ALONE. CM EXPLAINED A REFERRAL HAS BEEN MADE TO [facility] HOWEVER THEY HAVE NOT YET OFFERED A BED. CM ALSO INFORMED HER THE PTS INSURANCE COMPANY MAY NOT BE AVAILABLE TO PROVIDE AUTH. CURRENT DC PLAN IS STR, PENDING BED OFFER AND INSURANCE AUTH
[2021-08-22] MEDS: Dextrose 5 % and 0.45 % NaCl 1,000 ML 50 ML IVCONT (13:51)
[2021-08-22 15:34] VITALS: BP 163/89; PULSE 91; RESP 18; TEMP 37.1; O2SAT 95
[2021-08-22 16:14] LABS: Glucose, Whole Blood 192 mg/dL (60-115)
[2021-08-22] MEDS: Insulin Lispro 100 UNIT/ML 3 ML VIAL SUBCUT (16:14)
[2021-08-22 19:41] VITALS: BP 196/93; PULSE 99; RESP 18; TEMP 37.4; O2SAT 94
[2021-08-22 20:32] LABS: Glucose, Whole Blood 183 mg/dL (60-115)
[2021-08-23] VITALS: BP 138/76; PULSE 80; RESP 20; TEMP 37; O2SAT 96
[2021-08-23] MEDS: cefTRIAXone sodium 1 GM in 0.9 % Sodium Chloride 50 ML IV (00:27)
[2021-08-23 07:12] VITALS: BP 149/64; PULSE 72; RESP 18; TEMP 36.7; O2SAT 95
[2021-08-23 07:20] LABS: Glucose, Whole Blood 127 mg/dL (60-115)
[2021-08-23 11:11] VITALS: BP 129/74; PULSE 78; RESP 18; TEMP 36.9; O2SAT 97
[2021-08-23 11:18] LABS: Glucose, Whole Blood 226 mg/dL (60-115)
[2021-08-23] MEDS: Insulin Lispro 100 UNIT/ML 3 ML VIAL SUBCUT ×2 (11:56→20:57)
--- NOTE | 2021-08-23 12:47 | P.PNIM_ITS ---
Subjective Subjective Date of Service: 08/23/21 Review of Systems Follow up hematuria sitting up in bed, stating she wants to get washed up but apparently she had already been washed confusion noted Physical Exam Verdana 4l Vital Signs: Verdana 4d Verdana 4d Vital Signs: Verdana 4d Verdana 4Bd Last Vital Signs Verdana 4d Dog Raiser New 4d Dog Raiser New 4d Temp 98.4 F 08/23/21 11:11 Dog Raiser New 4d Pulse 78 08/23/21 11:11 Dog Raiser NewNew 4d Resp 18 08/23/21 11:11 BP 129/74 08/23/21 11:11 Pulse Ox 97 08/23/21 11:11 BMI result Body Mass Index 18.3 Appearing in no acute distress lung sounds are clear to auscultation heart regular rate rhythm, clear S1, S2 positive bowel sounds, abdomen is soft, nontender neuro patient is alert, confused Objective Data Active Medications Acetaminophen (Acetaminophen 325 Mg Tablet) 650 mg PO Q6H PRN PRN Reason: Pain, Mild (Pain Scale 1-3) Albuterol/Ipratropium (Albuterol/Iprat 2.5/0.5mg 3 Ml Ampul.Neb) 3 ml INHALE RQ4H PRN PRN Reason: Shortness of Breath Dextrose (Dextrose 50 % 25 Gm/50 Ml Vial) 25 gm IVPUSH Q15M PRN; Protocol PRN Reason: per Hypoglycemia Standing Ord. Fentanyl (Fentanyl Citrate/Pf 100 Mcg/2 Ml Vial) 25 mcg IVPUSH Q5M PRN; Protocol PRN Reason: Pain, Moderate (Pain Scale 4-6 Glucose (Glucose Gel 15 Gm Gel..Gram.) 15 gm PO Q15M PRN; Protocol PRN Reason: per Hypoglycemia Standing Ord. Ceftriaxone Sodium 1 gm/ (Sodium Chloride) 50 mls @ 100 mls/hr IV Q24H [facility] Last Infusion: 08/23/21 01:50 Dose: 0 mls/hr Documented by: TISHRISYeimi Insulin Human Lispro (Insulin Lispro 100 Unit/Ml 3 Ml Vial) 0 unit SUBCUT QIDACHS [facility]; Protocol Last Admin: 08/23/21 11:56 Dose: 4 unit Documented by: DIEGO Melatonin (Melatonin 3 Mg Tablet) 6 mg PO BEDTIME PRN PRN Reason: Insomnia Ondansetron HCl (Ondansetron Hcl 4 Mg/2 Ml Vial) 4 mg IVPUSH ONCE PRN PRN Reason: Nausea and Vomiting Sodium Chloride (0.9 % Sodium Chloride Flush 3 Ml Syringe) 3 ml IVFLUSH QSHIFT [facility] Last Admin: 08/23/21 09:57 Dose: Not Given Documented by: DIEGO Non-Admin Reason: Patient Refused Labs CBC & Chem 7: 08/21/21 13:20 08/20/21 05:54 Labs: Laboratory Results - last 24 hr 08/22/21 08/22/21 08/23/21 16:11 20:27 07:14 POC Glucose 192 H 183 H 127 H 08/23/21 11:13 POC Glucose 226 H Microbiology Microbiology Results: Microbiology 08/19/21 21:03 Urine Culture - Final Urine Catheterized - Melendez Catheter Escherichia coli Assessment and Plan (1) Anemia: Status: Acute (2) Bladder cancer: Status: Acute (3) Hematuria: Status: Acute Assessment and Plan: 76-year-old female with a past medical history of hypertension, hyperlipidemia, diabetes, CVA with residual occasional speech difficulty, on aspirin Plavix presented to the hospital today with a chief complaint of hematuria.? Noted to have anemia Acute blood loss anemia--probably originating from bladder in light bladder thickening, had cystoscopy with Bx on 08/20, Bx pending, there?was concern raised possible fistula but close review of radiographs showed no fistula, s/p tranfsusion, H and H is stable Had cysto, Bx taken Hold plavix Melendez removed Vaginal bleed it is not clear, could all be part of hematuria Patient already has seen apprentice electrician; ultrasound showed polyp.? Biopsies were taken.? Patient to continue to follow-up with Dr. Valdivia for results. Bladder mass. CT scan showed bladder mass.? Currently hematuria resolved.? Patient was briefly on CBI.? Urology following Diabetes. Insulin sliding scale.? Hold home oral hypoglycemic agents.? History of glaucoma Continue home eye drops DISPO str likely Wednesday DVT prophylaxis:? SCD boots Code status:? Full code.? Attending Dr. Alatorre Quality Stroke Does the patient have a stroke diagnosis?: No VTE Prior VTE?: No VTE Risk Level:: Medical - moderate - high VTE Device Contraindication: N/A - Device Ordered VTE Drug Contraindication: Treatment Not Indicated
[2021-08-23 15:32] LABS: Glucose, Whole Blood 76 mg/dL (60-115)
[2021-08-23 16:00] VITALS: BP 145/73; PULSE 77; RESP 18; TEMP 37.2; O2SAT 95
[2021-08-23 19:56] VITALS: BP 121/73; PULSE 78; RESP 16; TEMP 36.9; O2SAT 94
[2021-08-23 20:50] LABS: Glucose, Whole Blood 247 mg/dL (60-115)
[2021-08-23] MEDS: 0.9 % Sodium Chloride Flush 3 ML SYRINGE IVFLUSH (20:58)
[2021-08-23 23:34] VITALS: BP 129/85; PULSE 88; RESP 18; TEMP 37.1; O2SAT 96
[2021-08-24] MEDS: cefTRIAXone sodium 1 GM in 0.9 % Sodium Chloride 50 ML IV ×2 (00:20→23:55)
[2021-08-24 03:55] VITALS: BP 118/63; PULSE 80; RESP 14; TEMP 36.6; O2SAT 97
[2021-08-24] MEDS: 0.9 % Sodium Chloride Flush 3 ML SYRINGE IVFLUSH ×3 (07:22→21:02)
[2021-08-24 07:26] VITALS: BP 135/95; PULSE 86; RESP 18; TEMP 36.6; O2SAT 98
[2021-08-24 07:43] LABS: Glucose, Whole Blood 169 mg/dL (60-115)
[2021-08-24] MEDS: Insulin Lispro 100 UNIT/ML 3 ML VIAL SUBCUT (08:53)
[2021-08-24 11:07] VITALS: BP 117/65; PULSE 80; RESP 18; TEMP 37; O2SAT 97
[2021-08-24 11:14] LABS: Glucose, Whole Blood 157 mg/dL (60-115)
--- NOTE | 2021-08-24 13:08 | P.PNIM_ITS ---
Subjective Subjective Date of Service: 08/24/21 Review of Systems Follow up anemia laying in bed no complaints of pain Physical Exam Verdana 4l Vital Signs: Verdana 4d Verdana 4d Vital Signs: Verdana 4d Verdana 4Bd Last Vital Signs Verdana 4d Tilesetter New 4d Tilesetter 4d Temp 98.6 F 08/24/21 11:07 New 4d Pulse 80 08/24/21 11:07 Abhi NewNew 4d Resp 18 08/24/21 11:07 BP 117/65 08/24/21 11:07 Pulse Ox 97 08/24/21 11:07 BMI result Body Mass Index 18.3 Appearing in no acute distress lung sounds are clear to auscultation heart regular rate rhythm, clear S1, S2 positive bowel sounds, abdomen is soft, nontender neuro patient is alert x3, no focal deficits Objective Data Active Medications Acetaminophen (Acetaminophen 325 Mg Tablet) 650 mg PO Q6H PRN PRN Reason: Pain, Mild (Pain Scale 1-3) Albuterol/Ipratropium (Albuterol/Iprat 2.5/0.5mg 3 Ml Ampul.Neb) 3 ml INHALE RQ4H PRN PRN Reason: Shortness of Breath Dextrose (Dextrose 50 % 25 Gm/50 Ml Vial) 25 gm IVPUSH Q15M PRN; Protocol PRN Reason: per Hypoglycemia Standing Ord. Fentanyl (Fentanyl Citrate/Pf 100 Mcg/2 Ml Vial) 25 mcg IVPUSH Q5M PRN; Prot ocol PRN Reason: Pain, Moderate (Pain Scale 4-6 Glucose (Glucose Gel 15 Gm Gel..Gram.) 15 gm PO Q15M PRN; Protocol PRN Reason: per Hypoglycemia Standing Ord. Ceftriaxone Sodium 1 gm/ (Sodium Chloride) 50 mls @ 100 mls/hr IV Q24H [facility] Last Infusion: 08/24/21 00:52 Dose: 0 mls/hr Documented by: YUNI Insulin Human Lispro (Insulin Lispro 100 Unit/Ml 3 Ml Vial) 0 unit SUBCUT QIDACHS [facility]; Protocol Last Admin: 08/24/21 12:24 Dose: Not Given Documented by: AGUSTÍN Non-Admin Reason: refused lunch Melatonin (Melatonin 3 Mg Tablet) 6 mg PO BEDTIME PRN PRN Reason: Insomnia Ondansetron HCl (Ondansetron Hcl 4 Mg/2 Ml Vial) 4 mg IVPUSH ONCE PRN PRN Reason: Nausea and Vomiting Sodium Chloride (0.9 % Sodium Chloride Flush 3 Ml Syringe) 3 ml IVFLUSH QSHIFT [facility] Last Admin: 08/24/21 07:22 Dose: 3 ml Documented by: AGUSTÍN Labs CBC & Chem 7: 08/21/21 13:20 08/20/21 05:54 Labs: Laboratory Results - last 24 hr 08/23/21 08/23/21 08/24/21 15:27 20:46 07:29 POC Glucose 76 247 H 169 H 08/24/21 11:09 POC Glucose 157 H Assessment and Plan (1) Anemia: Status: Acute Assessment and Plan: 76-year-old female with a past medical history of hypertension, hyperlipidemia, diabetes, CVA with residual occasional speech difficulty, on aspirin Plavix presented to the hospital today with a chief complaint of hematuria.? Noted to have anemia Acute blood loss anemia--probably originating from bladder in light bladder thickening, had cystoscopy with Bx on 08/20, Bx pending, there?was concern raised possible fistula but close review of radiographs showed no fistula, s/p tranfsusion, H and H is stable Had cysto, Bx taken Hold plavix Melendez removed Vaginal bleed it is not clear, could all be part of hematuria Patient already has seen stock receiver; ultrasound showed polyp.? Biopsies were taken.? Patient to continue to follow-up with Dr. Valdivia for results. Bladder mass. CT scan showed bladder mass.? Currently hematuria resolved.? Patient was briefly on CBI.? Urology following Diabetes. Insulin sliding scale.? Hold home oral hypoglycemic agents.? History of glaucoma Continue home eye drops DISPO str likely Wednesday DVT prophylaxis:? SCD boots Code status:? Full code.? Attending Dr. Alatorre Quality Stroke Does the patient have a stroke diagnosis?: No VTE Prior VTE?: No VTE Risk Level:: Medical - moderate - high VTE Device Contraindication: N/A - Device Ordered VTE Drug Contraindication: Treatment Not Indicated
[2021-08-24 15:14] VITALS: BP 132/76; PULSE 68; RESP 20; TEMP 36.8; O2SAT 96
[2021-08-24 16:16] LABS: Glucose, Whole Blood 117 mg/dL (60-115)
[2021-08-24 19:22] VITALS: BP 144/79; PULSE 70; RESP 20; TEMP 36.5; O2SAT 95
[2021-08-24 20:11] LABS: Glucose, Whole Blood 123 mg/dL (60-115)
[2021-08-24 23:45] VITALS: BP 136/78; PULSE 71; RESP 18; TEMP 36.9; O2SAT 95
[2021-08-25 04:00] VITALS: BP 143/81; PULSE 74; RESP 18; TEMP 36.9; O2SAT 96
[2021-08-25 07:16] VITALS: BP 144/84; PULSE 73; RESP 19; TEMP 36.1; O2SAT 94
[2021-08-25 08:49] LABS: Glucose, Whole Blood 109 mg/dL (60-115)
[2021-08-25] MEDS: 0.9 % Sodium Chloride Flush 3 ML SYRINGE IVFLUSH (08:49)
[2021-08-25 10:38] LABS: COVID-19 Test Negative (Negative)
[2021-08-25 10:53] VITALS: BP 144/84; PULSE 73; O2SAT 94
--- NOTE | 2021-08-25 11:20 | MHC.CM.PN ---
Patient has been accepted to STR @ [facility] pending [employer] auth. CM will follow.
[2021-08-25 11:25] VITALS: BP 141/67; PULSE 74; RESP 19; TEMP 36.1; O2SAT 96
[2021-08-25 11:30] LABS: Glucose, Whole Blood 165 mg/dL (60-115)
[2021-08-25] MEDS: Insulin Lispro 100 UNIT/ML 3 ML VIAL SUBCUT (11:48)
--- NOTE | 2021-08-25 13:19 | PM.DS ---
DS: Providers Provider Date of Service: 08/25/21 <Socorro Lopez NP - Last Filed: 08/25/21 13:54> Date of admission: 08/19/21 23:55 <Socorro Lopez NP - Last Filed: 08/25/21 13:54> Primary care physician: Wyatt Oreilly MD <Socorro Lopez NP - Last Filed: 08/25/21 13:54> Consults: 08/20/21 00:49 Consult to Urology Routine Consulting Provider: Serge Davidson Reason for consultation: bladder mass; hematuria <Socorro Lopez NP - Last Filed: 08/25/21 13:54> Attending physician on discharge: Rainer Stratton <Socorro Lopez NP - Last Filed: 08/25/21 13:54> Discharging clinician: Socorro Lopez <Socorro Lopez NP - Last Filed: 08/25/21 13:54> DS: Diagnosis Discharge Diagnosis (1) Anemia: DS: Summary Hospital Course Hospital Course: HP as per admitting provider 76-year-old female with a past medical history of hypertension, hyperlipidemia, diabetes, CVA with residual occasional speech difficulty, on aspirin Plavix presented to the hospital today with a chief complaint of hematuria.?Spoke to the patient and patient's daughter.?As per the patient's daughter patient has been having episodes of bleeding per vagina over the past few days; had a ultrasound as outpatient which showed vaginal polyp; has seen Dr Validvia from OBGYN in the clinic who took biopsies and noted that patient is having hematuria; subsequently sent to the ER for further evaluation.?Patient has been having intermittent episodes of bleeding-> for vaginal versus hematuria; had large episode on Wednesday which resolved on its own and had recurrent episodes of further intermittently; denies any fall trauma.? Denies any chest pain palpitations.? Denies any numbness tingling.? Denies any fever chills cough.? Denies any burning or frequency.?Denied any signs of blood in the stool.Review of all other systems is negative except mentioned above ER course: Per ER team patient had a CT abdomen done which showed bladder mass; initial discussed with urology on-call who suggested follow-up in the clinic; but the ER team repeated hemoglobin which noted drop in the hemoglobin; patient was given 1 unit of blood transfusion.? Admitted to the hospital for further management . Acute blood loss anemia--probably originating from bladder in light bladder thickening, had cystoscopy with Bx on 08/20, Bx pending, there?was concern raised possible fistula but close review of radiographs showed no fistula, s/p tranfsusion, H and H is stable. Had cysto, Bx taken. Plavix held. Melendez removed Vaginal bleed secondary to hematuria. Patient already has seen social sciences professor; ultrasound showed polyp.?Biopsies were taken.?Patient to continue to follow-up with Dr. Valdivia for resultsas an outpatient. Bladder mass. CT scan showed bladder mass.? Currently hematuria resolved.? Patient was briefly on CBI.?Follow-up in 2 weeks for pathology review with urology <Socorro Lopez NP - Last Filed: 08/25/21 13:54> Time Spent with Patient Time attestation: Total time spent providing and/or coordinating discharge services: <Socorro Lopez NP - Last Filed: 08/25/21 13:54> Discharge coordination time: Greater than 30 minutes <Socorro Lopez NP - Last Filed: 08/25/21 13:54> Quality: Stroke Does the patient have a stroke diagnosis?: No <Socorro Lopez NP - Last Filed: 08/25/21 13:54> Physical Exam Vital Signs: Vital Signs: Last Vital Signs Temp 97 F 08/25/21 11:25 Pulse 74 08/25/21 11:25 Resp 19 08/25/21 11:25 BP 141/67 H 08/25/21 11:25 Pulse Ox 96 08/25/21 11:25 BMI result Body Mass Index 18.3 <Socorro Lopez NP - Last Filed: 08/25/21 13:54> Appearing in no acute distress head is normocephalic atraumatic eyes pupils are PERRLA sclera is anicteric mouth throat mucous membranes are intact and moist neck is supple no lymphadenopathy, no JVD noted lung sounds are clear to auscultation heart regular rate rhythm, clear S1, S2 positive bowel sounds, abdomen is soft, nontender neuro patient is alert x3, no focal deficits <Socorro Lopez NP - Last Filed: 08/25/21 13:54> DS: Data Data Completed and Pending Pending studies at discharge: Pending at discharge 08/20/21 17:20 Surgical [PTH] Routine <Socorro Lopez NP - Last Filed: 08/25/21 13:54> Labs on day of discharge: Laboratory Results - last 24 hr 08/24/21 08/24/21 08/25/21 16:13 20:08 07:31 POC Glucose 117 H 123 H 109 COVID-19 (PO) COVID-19 Clin Com 08/25/21 08/25/21 10:15 11:25 POC Glucose 165 H COVID-19 (PO) Negative COVID-19 Clin Com See Note <Socorro Lopez NP - Last Filed: 08/25/21 13:54> Discharge Plan Discharge Anticipated Discharge Date/Time: 08/25/21 13:38 <Socorro Lopez NP - Last Filed: 08/25/21 13:54> Patient Disposition: Xfer SNF <Socorro Lopez NP - Last Filed: 08/25/21 13:54> Discharge Diagnosis: Anemia Bladder mass vaginal bleeding <Socorro Lopez NP - Last Filed: 08/25/21 13:54> Anemia Bladder mass vaginal bleeding <Rainer Stratton DO - Last Filed: 09/05/21 18:08> Referrals: [facility] [Outside] - 1 Week Serge Davidson MD [Physician] - 1 Week Wyatt Oreilly MD [Primary Care Provider] - 1 Week Frank Valdivia MD [Physician] - 1 Week <Socorro Lopez NP - Last Filed: 08/25/21 13:54> Discharge Medications: Continued metformin 500 mg tablet 500 mg PO BID Qty: 180 RF: 8 simvastatin 40 mg tablet 40 mg PO BEDTIME RF: 0 glipizide 5 mg tablet 2.5 mg PO BEDTIME RF: 0 aspirin 81 mg tablet,delayed release (DR/EC) 81 mg PO DAILY RF: 0 lisinopril 5 mg tablet 5 mg PO DAILY RF: 0 latanoprost 0.005 % drops 1 drp ophthalmic-Left BEDTIME RF: 0 timolol maleate 0.5 % drops 1 drp ophthalmic-Left DAILY RF: 0 Discontinued clopidogrel 75 mg tablet 75 mg PO DAILY Qty: 90 RF: 8 <Socorro Lopez NP - Last Filed: 08/25/21 13:54> Discharge Orders: Discharge Order (Routine); Ordered 08/25/21 Ordered By: Socorro Lopez <Socorro Lopez NP - Last Filed: 08/25/21 13:54> Diet: advance to usual diet <Socorro Lopez NP - Last Filed: 08/25/21 13:54> advance to usual diet <Rainer Stratton DO - Last Filed: 09/05/21 18:08> Activity on Discharge: As tolerated <Socorro Lopez NP - Last Filed: 08/25/21 13:54> As tolerated <Rainer Stratton DO - Last Filed: 09/05/21 18:08> Stand Alone Forms: Patient Portal Discharge page <Socorro Lopez NP - Last Filed: 08/25/21 13:54> Care Plan Goals: Resolution of symptoms <Socorro Lopez NP - Last Filed: 08/25/21 13:54> Health Concerns: Anemia Bladder mass vaginal bleeding <Socorro Lopez NP - Last Filed: 08/25/21 13:54> Plan of Treatment: You will be transferred to short-term rehab. Plavix was held due to anemia and hematuria You need to follow-up with Dr. Davidson, urologist for pathology reports of bladder biopsy You need to follow-up with Dr. Shea Ruelas, diamond sizer and grader for pathology reports of polyps <Socorro Lopez NP - Last Filed: 08/25/21 13:54> Assessment: See discharge summary <Socorro Lopez NP - Last Filed: 08/25/21 13:54> Discharge Date/Time: 08/25/21 15:44 <Socorro Lopez NP - Last Filed: 08/25/21 13:54>
--- NOTE | 2021-08-25 13:57 | MHC.CM.PN ---
Per VENEER SANDER, Patient will be medically cleared for dc to SNF/STR today. Patient will dc to her first choice SNF- [facility] today at 3PM, via [facility]. Patient and her Daughter/Radhika at [phone] are aware of and in agreement with the dc plan. IMM addressed this morning with Patient (original was given to her and a copy was placed on the chart).
--- NOTE | 2021-08-25 14:19 | MHC.CM.PN ---
A new HCP was completed today, with Patient. A copy has been faxed to Daughter/Radhika @ [phone] and uploaded into [facility].
--- NOTE | 2021-08-25 14:49 | MHC.CLN ---
F/U REVIEW OF POC GLUCOSE SHOWS ELEVATED BLOOD GLUCOSE. ORDER IN PLACE FOR HUMALOG AND PATIENT HAS RECEIVED. CHANGING DIET TO DIABETIC 1800 KCAL FOR BLOOD SUGAR CONTROL.
== END 2021-08-25 15:44 | disposition skilled nursing facility (03) | DRG 669 ==
LOC: HO.ED 16:33 → HO.EDOVER 08-20 00:26 → HO.IMC 08-20 01:46
PROVIDERS: Emergency Medicine; Internal Medicine; Urology; Admitting Provider Hospitalist; Emergency Provider Emergency Medicine; PCP Internal Medicine; Visit Provider Nurse Practitioner Acute Care
PROC: 0TBB8ZZ Excision of Bladder, Via Natural or Artificial Opening Endoscopic (ICD-10-PCS; principal; 2021-08-20 16:00)
DX: N32.9 Bladder disorder, unspecified (principal); D62 Acute posthemorrhagic anemia; R31.0 Gross hematuria; E11.9 Type 2 diabetes mellitus without complications; I69.928 Other speech and language deficits following unspecified cerebrovascular disease; Z20.822 Contact with and (suspected) exposure to COVID-19; Z23 Encounter for immunization; Z79.02 Long term (current) use of antithrombotics/antiplatelets; Z79.82 Long term (current) use of aspirin; Z79.84 Long term (current) use of oral hypoglycemic drugs; Z79.899 Other long term (current) drug therapy
CPT/HCPCS: 36415; 36430; 74177; 80048; 81001; 82272; 82947; 85014; 85018; 85025; 85027; 86850; 86900; 86901; 86923; 87086; 87088; 87186; 87635; 88305; 90686; 97110; 97116; 97162; 99285; J0696; J1100; J1956; J2405; J3010; P9016; Q9967

== ENCOUNTER 2021-08-26 06:19 | Outpatient (REF) | payer MEDICARE, SELFPAY ==
[2021-08-26 06:23] LABS: MANUAL DIFF FLAG NO
[2021-08-26 06:40] LABS: Basophils Percent Auto 0.5 % (0-2); Eosinophils Absolute Auto 0.1 X10*3/uL (0.0-0.4); Hemoglobin 10.8 g/dl (12.0-16.0); Imm Gran Abs Auto 0.06 X10*3/uL (0.00-0.03); Imm Gran Pct Auto 1.1 % (0.0-0.4); Lymphocytes Absolute Auto 2.5 X10*3/uL (1.2-4.9); Lymphocytes Percent Auto 45.1 % (20-40); Mean Corpuscular HGB Conc 30.9 g/dl (31.0-35.0); Mean Corpuscular Hemoglobin 27.3 pg (27.0-33.0); Mean Corpuscular Volume 88.4 fL (80.0-98.0); Mean Platelet Volume 9.7 fL (9.4-12.3); Monocytes Absolute Auto 0.5 X10*3/uL (0.1-1.2); Monocytes Percent Auto 9.7 % (2-11); Neutrophils Absolute Auto 2.3 x10*3/uL (2.0-8.3); Neutrophils Percent Auto 41.6 % (45-73); Platelet Count 239 X10*3/uL (160-400); Red Blood Count 3.96 X10*6/uL (4.20-5.50); Red Cell Distribution Width 16.3 % (11.0-16.0); White Blood Count 5.6 X10*3/uL (4.8-10.8)
[2021-08-26 07:35] LABS: Alanine Aminotransferase 7 U/L (0-31); Albumin Level 3.3 g/dL (3.5-5.0); Alkaline Phosphatase 54 U/L (39-117); Anion Gap 11 (12-20); Aspartate Amino Transferase 13 U/L (5-31); Bilirubin Total 0.2 mg/dL (0.0-1.0); Blood Urea Nitrogen 20 mg/dL (9-16); Calcium 8.7 mg/dL (8.4-10.2); Carbon Dioxide 26 mmol/L (22-29); Chloride 109 mmol/L (96-108); Estimated Glomerular Filt Rate > 60; Glucose Fasting 129 mg/dL (60-99); Potassium 4.8 mmol/L (3.3-5.1); Sodium 141 mmol/L (135-145); Total Protein 5.4 g/dL (6.5-8.0)
== END 2021-08-26 06:20 | disposition home or self-care (01) ==
LOC: HO.MMNH1L 06:19
PROVIDERS: Visit Provider Family Medicine
DX: D64.9 Anemia, unspecified (principal); I10 Essential (primary) hypertension
CPT/HCPCS: 36415; 80053; 85025

== ENCOUNTER 2021-09-01 00:17 | Outpatient (REF) | payer MEDICARE, SELFPAY ==
[2021-09-01 07:12] LABS: Hematocrit 30.8 % (37.0-47.0); Hemoglobin 9.5 g/dl (12.0-16.0); Mean Corpuscular HGB Conc 30.8 g/dl (31.0-35.0); Mean Corpuscular Hemoglobin 27.9 pg (27.0-33.0); Mean Corpuscular Volume 90.6 fL (80.0-98.0); Mean Platelet Volume 10.2 fL (9.4-12.3); Platelet Count 182 X10*3/uL (160-400); Red Cell Distribution Width 16.3 % (11.0-16.0); White Blood Count 5.5 X10*3/uL (4.8-10.8)
[2021-09-01 07:54] LABS: Alanine Aminotransferase 8 U/L (0-31); Albumin Level 3.3 g/dL (3.5-5.0); Alkaline Phosphatase 47 U/L (39-117); Anion Gap 12 (12-20); Aspartate Amino Transferase 11 U/L (5-31); Bilirubin Total 0.3 mg/dL (0.0-1.0); Blood Urea Nitrogen 17 mg/dL (9-16); Calcium 8.6 mg/dL (8.4-10.2); Carbon Dioxide 26 mmol/L (22-29); Chloride 110 mmol/L (96-108); Estimated Glomerular Filt Rate > 60; Potassium 4.3 mmol/L (3.3-5.1); Sodium 144 mmol/L (135-145); Total Protein 5.1 g/dL (6.5-8.0)
[2021-09-01 08:17] LABS: Glucose Random 43 mg/dL (60-115)
== END 2021-09-01 00:18 | disposition home or self-care (01) ==
LOC: HO.MMNH1L 00:17
PROVIDERS: Visit Provider Family Medicine
DX: D64.9 Anemia, unspecified (principal); I10 Essential (primary) hypertension
CPT/HCPCS: 36415; 80053; 85027

== ENCOUNTER → 2021-09-03 10:00 | Outpatient (BNVA) | payer MEDICARE, SELFPAY | PROVIDERS: PCP Internal Medicine; Visit Provider Urology | CPT/HCPCS: Q3014 ==

== ENCOUNTER 2021-09-08 00:50 | Outpatient (REF) | payer MEDICARE, SELFPAY ==
[2021-09-08 07:17] LABS: Hematocrit 33.8 % (37.0-47.0); Hemoglobin 10.5 g/dl (12.0-16.0); Mean Corpuscular HGB Conc 31.1 g/dl (31.0-35.0); Mean Corpuscular Hemoglobin 27.8 pg (27.0-33.0); Mean Corpuscular Volume 89.4 fL (80.0-98.0); Platelet Count 187 X10*3/uL (160-400); Red Blood Count 3.78 X10*6/uL (4.20-5.50); Red Cell Distribution Width 15.9 % (11.0-16.0)
[2021-09-08 07:31] LABS: Anion Gap 11 (12-20); Blood Urea Nitrogen 17 mg/dL (9-16); Calcium 8.5 mg/dL (8.4-10.2); Carbon Dioxide 24 mmol/L (22-29); Chloride 110 mmol/L (96-108); Estimated Glomerular Filt Rate > 60; Glucose Random 71 mg/dL (60-115); Potassium 3.7 mmol/L (3.3-5.1); Sodium 141 mmol/L (135-145)
== END 2021-09-08 00:51 | disposition home or self-care (01) ==
LOC: HO.MMNH1L 00:50
PROVIDERS: Visit Provider Family Medicine
DX: D64.9 Anemia, unspecified (principal); I10 Essential (primary) hypertension
CPT/HCPCS: 36415; 80048; 85027

== ENCOUNTER 2021-09-15 | Outpatient (REF) | payer MEDICARE, SELFPAY ==
[2021-09-15 07:52] LABS: Hematocrit 32.9 % (37.0-47.0); Mean Corpuscular HGB Conc 30.4 g/dl (31.0-35.0); Mean Corpuscular Hemoglobin 27.3 pg (27.0-33.0); Mean Corpuscular Volume 89.9 fL (80.0-98.0); Mean Platelet Volume 10.5 fL (9.4-12.3); Platelet Count 219 X10*3/uL (160-400); Red Blood Count 3.66 X10*6/uL (4.20-5.50); Red Cell Distribution Width 15.8 % (11.0-16.0); White Blood Count 4.9 X10*3/uL (4.8-10.8)
[2021-09-15 08:13] LABS: Anion Gap 11 (12-20); Blood Urea Nitrogen 15 mg/dL (9-16); Calcium 8.6 mg/dL (8.4-10.2); Carbon Dioxide 26 mmol/L (22-29); Chloride 110 mmol/L (96-108); Estimated Glomerular Filt Rate > 60; Glucose Random 74 mg/dL (60-115); Potassium 3.8 mmol/L (3.3-5.1); Sodium 143 mmol/L (135-145)
== END 2021-09-15 00:01 | disposition home or self-care (01) ==
LOC: HO.MMNH1L
PROVIDERS: Visit Provider Family Medicine
DX: D64.9 Anemia, unspecified (principal); I10 Essential (primary) hypertension
CPT/HCPCS: 36415; 80048; 85027

== ENCOUNTER 2021-09-19 16:03 | Outpatient (REF) | payer MEDICARE, SELFPAY ==
--- NOTE | ~2021-09-19 | MR_ITS ---
EXAMINATION: MR PELVIS WITHOUT AND WITH CONTRAST CLINICAL INFORMATION: Bladder abnormality. COMPARISON: Directly compared to the 08/19/2021 study. TECHNIQUE: Multiple routine MRI sequences through the pelvis were obtained on a high-field 1.5 Loan MRI. Pre and postcontrast images were evaluated utilizing 5 mL of Gadavist intravenous contrast. FINDINGS: Although this is not a stressed examination, there is evidence for prominent bladder cystocele with the bladder base extending approximately 4 cm below the pubococcygeal line. The bladder wall the cystocele is difficult to assess possibly due to some decompression with the more proximal better visualized bladder wall elsewhere. Grossly unremarkable. I do not appreciate any discrete abnormality to the urethra. Anteroverted uterus with tiny T2 dark fundal fibroid incidentally noted. Bowel is mostly decompressed but otherwise unremarkable. I do not appreciate any significant free fluid. 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 No obvious acute bony destructive lesions. Bone screw in the right femoral head and neck partially visualized. MR/MR pelvis wo/w con IMPRESSION: Although this is a nonstressed examination, there is a prominent bladder cystocele with the bladder base descending approximately 4 cm below the pubococcygeal line. There is likely laxity to the urethra as well which is also distended posteriorly and rotated slightly on this nonstressed examination. This would likely be more apparent during straining MR defecography if needed. The prior CT scan had demonstrated more significant diffuse bladder wall thickening possibly representing cystitis or underlying lesion at that time but the current bladder wall appears more normal without significant focal abnormal wall thickening or enhancement. Of note however the bladder wall within the dependent aspect of the cystocele itself is not well assessed. I do not appreciate any bulky pelvic sidewall adenopathy within incidental 1.2 cm left common iliac artery aneurysm noted.
== END 2021-09-19 16:04 | disposition home or self-care (01) ==
LOC: HO.MRI 16:03
PROVIDERS: Visit Provider Urology
DX: N32.89 Other specified disorders of bladder (principal)
CPT/HCPCS: 72197; A9585

== ENCOUNTER 2021-09-22 01:04 | Outpatient (REF) | payer MEDICARE, SELFPAY | END 2021-09-22 01:05 | disposition home or self-care (01) | LOC: HO.MMNH1L 01:04 | PROVIDERS: Visit Provider Family Medicine | DX: Z13.89 Encounter for screening for other disorder (principal) ==

== ENCOUNTER → 2021-10-02 14:13 | Outpatient (BNVA) | payer MEDICARE, SELFPAY | PROVIDERS: PCP Internal Medicine; Visit Provider Obstetrics & Gynecology | DX: Z71.2 Person consulting for explanation of examination or test findings (principal); R93.41 Abnormal radiologic findings on diagnostic imaging of renal pelvis, ureter, or bladder | CPT/HCPCS: Q3014 ==

== ENCOUNTER → 2021-10-10 15:58 | Outpatient (BNVA) | payer MEDICARE, SELFPAY | PROVIDERS: PCP Internal Medicine; Visit Provider Urology | DX: N32.89 Other specified disorders of bladder (principal); N30.80 Other cystitis without hematuria | CPT/HCPCS: Q3014 ==

== ENCOUNTER → 2022-01-07 10:13 | Outpatient (BNVA) | payer MEDICARE, SELFPAY | PROVIDERS: PCP Internal Medicine; Visit Provider Urology | DX: N30.80 Other cystitis without hematuria (principal) | CPT/HCPCS: 52000; 99212 ==

== ENCOUNTER 2022-02-14 18:56 | Emergency (ER) | payer MEDICARE, SELFPAY ==
[2022-02-14 19:13] VITALS: BP 160/98; PULSE 88; O2SAT 98
[2022-02-14 19:18] VITALS: BP 172/109; PULSE 83; RESP 18; TEMP 37.3; O2SAT 95; BMI 18.5
[2022-02-14 19:27] VITALS: BP 153/92
--- NOTE | 2022-02-14 21:08 | ED_ITS ---
HPI - General Adult General Chief complaint: Abdominal Pain Stated complaint: Abd pain/Confusion Time Seen by Provider: 02/14/22 21:00 Source: patient History of Present Illness HPI narrative: This is a 76-year-old female who lives in a community residence, states that she developed abdominal pain in the middle the night last night which kept her from sleeping. She said the pain lasted until today but is gone now. She notes that she is scheduled for surgery by Dr. Davidson Wednesday morning. She denies any fever. She denies any cough or shortness of breath. She denies abdominal pain currently. She denies any nausea vomiting, constipation, diarrhea, urinary symptoms. Past medical history is significant for diabetes, hypertension, hyperlipidemia, bladder cancer, chronic cystitis, bladder prolapse. Related Data Home Medications Medication Instructions Recorded Confirmed aspirin 81 mg tablet,delayed 81 mg PO DAILY 11/12/20 02/09/22 release latanoprost 0.005 % eye drops 1 drp ophthalmic-Left BEDTIME 02/12/21 02/09/22 timolol maleate 0.5 % eye drops 1 drp ophthalmic-Left DAILY 02/12/21 02/09/22 glipizide 5 mg tablet 2.5 mg PO BEDTIME 08/16/21 02/09/22 Previous Rx's Medication Instructions Recorded metformin 500 mg tablet 500 mg PO BID #180 tabs 12/19/20 lisinopril 5 mg tablet 5 mg PO DAILY #90 tabs 11/21/21 simvastatin 40 mg tablet 40 mg PO BEDTIME #30 tabs 01/23/22 clopidogrel 75 mg tablet 75 mg PO DAILY #90 tabs 01/27/22 sulfamethoxazole 400 1 tab PO BEDTIME 90 days #90 tabs 02/02/22 mg-trimethoprim 80 mg tablet (Bactrim) Allergies Allergy/AdvReac Type Severity Reaction Status Date / Time No Known Allergies Allergy Mild NONE Verified 02/14/22 19:18 Review of Systems Review of Systems: As per HPI [facility] Past Medical History Medical History (Updated 02/15/22 @ 00:55 by Jhonny Etienne MD) Anemia Bladder cancer Blindness of left eye History of MRSA infection HTN (hypertension) Hx of myocardial infarction Hx of TIA (transient ischemic attack) and stroke Hyperlipidemia Surgical History History of ankle surgery History of bilateral cataract extraction History of cystoscopy History of hip surgery History of tubal ligation Family History Family History Mother No problems noted. Father No problems noted. Social History Social History Household Members: None Housing: Assisted Living Facility Alcohol intake: never Patient Tobacco Use Status: Never used Tobacco e-Cigarette/Vaping Use: Never Used Second Hand Smoke Exposure: No Use of substances other than those prescribed or required for medical reasons: No Advance Directives: No Advance Directives Information Provided: No service: No Current occupational status: retired Cognitive needs: No Hearing needs: No Vision needs: Yes Physical Exam ED Vital Signs: Vital Signs - 24 hr 02/14/22 19:18 02/14/22 19:27 02/14/22 22:18 Temperature 99.1 F Pulse Rate 83 75 Respiratory Rate 18 16 Blood Pressure 172/109 H 153/92 H 147/88 H Pulse Oximetry 95 97 Oxygen Delivery Method Room Air Room Air 02/15/22 00:21 02/15/22 02:12 Temperature Pulse Rate 78 79 Respiratory Rate 16 16 Blood Pressure 152/87 H 150/86 H Pulse Oximetry 96 96 Oxygen Delivery Method Room Air Room Air BMI result Body Mass Index 18.5 Const General: no acute distress Orientation/consciousness: patient oriented x3 HENMT Head: Yes normal to inspection General nose exam: Normal external nose present Mouth: moist mucous membranes Throat: Yes posterior oropharynx normal, Yes tonsils normal and Yes uvula midline Eyes Eyelids: Yes eyelids normal Conjunctivae: conjunctivae normal Pupils: Equal, round and reactive pupils present Neck Neck: Yes supple Resp Effort & Inspection: normal respiratory effort Auscultation: clear to auscultation bilaterally Cardio Rate: regular rate Rhythm: regular rhythm Heart sounds: S1 normal heart sound present, S2 normal heart sound present, no gallops, no murmurs and no rubs GI Inspection: No distended Palpation (GI): Soft to palpation and nontender Auscultation: normal bowel sounds Skin General skin exam: other (Warm and dry) Neuro General: patient oriented x3 and CN's II-XI intact bilaterally Cranial nerves: Yes Equal, round and reactive pupils present Extrem General: Yes no pedal edema Psych Affect: normal affect Attitude: cooperative Medical Decision Making MDM Narrative Medical decision making narrative: Patient with abdominal pain earlier, resolved by the time I evaluated her. Patient states she is to have a procedure done by Dr. Davidson done on Wednesday. Patient had a benign abdominal exam. Given her age however and the fact that she appeared debilitated, her labs were checked. White count is 11.5 otherwise her CBC and chemistry panel were unremarkable. Urine showed microscopic hematuria, which is chronic per the patient. Patient can be discharged home and follow-up with Dr. Davidson Lab Data Lab results reviewed: Yes I reviewed the patient's lab results. Result diagrams: 02/14/22 21:41 02/14/22 22:40 Labs: Lab Results 02/14/22 02/14/22 02/14/22 Range/Units 21:41 22:40 23:53 WBC 11.5 H (4.8-10.8) X10*3/uL RBC 5.22 D (4.20-5.50) X10*6/uL Hgb 15.2 D (12.0-16.0) g/dl Hct 45.6 D (37.0-47.0) % MCV 87.4 (80.0-98.0) fL MCH 29.1 (27.0-33.0) pg MCHC 33.3 (31.0-35.0) g/dl RDW 15.7 (11.0-16.0) % Plt Count 215 (160-400) X10*3/uL MPV 9.6 (9.4-12.3) fL Immature Gran % (Auto) 0.3 (0.0-0.4) % Neut % (Auto) 78.1 H (45-73) % Lymph % (Auto) 14.4 L (20-40) % [place] % (Auto) 6.6 (2-11) % Eos % (Auto) 0.3 (0-4) % Baso % (Auto) 0.3 (0-2) % Lymph # (Auto) 1.7 (1.2-4.9) X10*3/uL [place] # (Auto) 0.8 (0.1-1.2) X10*3/uL Eos # (Auto) 0.0 (0.0-0.4) X10*3/uL Baso # (Auto) 0.0 (0.0-0.2) X10*3/uL Abs Immat Gran (auto) 0.03 (0.00-0.03) X10*3/uL Absolute Neuts (auto) 9.0 H (2.0-8.3) x10*3/uL Absolute Nucleated RBC 0.000 (0.0-0.012) X10*3/uL Nucleated RBC % (auto) 0.0 (0.0-0.2) /100WBC Sodium 138 (135-145) mmol/L Potassium 3.9 (3.3-5.1) mmol/L Chloride 104 (96-108) mmol/L Carbon Dioxide 24 (22-29) mmol/L Anion Gap 14 (12-20) BUN 10 (9-16) mg/dL Creatinine 0.67 (0.5-1.4) mg/dL Estim Creat Clear Calc 55.2 Estimated GFR > 60 Random Glucose 114 (60-115) mg/dL Calcium 8.4 (8.4-10.2) mg/dL Total Bilirubin 0.5 (0.0-1.0) mg/dL AST 21 D (5-31) U/L ALT 9 (0-31) U/L Alkaline Phosphatase 73 D (39-117) U/L Total Protein 6.9 D (6.5-8.0) g/dL Albumin 4.0 D (3.5-5.0) g/dL Urine Color YELLOW Urine Appearance TURBID Urine pH 6.0 (5.0-8.0) Ur Specific [place] >= 1.030 H (1.005-1.025) Urine Protein 2+ H (NEG-TRACE) MG/DL Urine Glucose (UA) NEG (NEG) MG/DL Urine Ketones NEG (NEG) MG/DL Urine Blood 3+ H (NEG) Urine Nitrite NEG (NEG) Ur Leukocyte Esterase NEG (NEG) Urine RBC 10-14 H (0) /HPF Urine WBC 0-2 (0-4) /HPF Ur Squamous Epith Cells 1+ /LPF Urine Bacteria 3+ /LPF Urine Yeast TRACE /HPF Discharge Plan Discharge Clinical Impression: Abdominal pain Patient Disposition: Home, Self-Care Instructions: Abdominal Pain (ED) Additional Instructions: Follow-up with Dr. Davidson tomorrow as scheduled for your bladder procedure. Continue current medications. Return for any new or worsened symptoms. Prescriptions: No Action metformin 500 mg tablet 500 mg PO BID Qty: 180 8RF lisinopril 5 mg tablet 5 mg PO DAILY Qty: 90 8RF simvastatin 40 mg tablet 40 mg PO BEDTIME Qty: 30 0RF clopidogrel 75 mg tablet 75 mg PO DAILY Qty: 90 8RF sulfamethoxazole-trimethoprim [Bactrim] 400-80 mg tablet 1 tab PO BEDTIME 90 Days Qty: 90 0RF glipizide 5 mg tablet 2.5 mg PO BEDTIME aspirin 81 mg tablet,delayed release (DR/EC) 81 mg PO DAILY latanoprost 0.005 % drops 1 drp ophthalmic-Left BEDTIME timolol maleate 0.5 % drops 1 drp ophthalmic-Left DAILY
[2022-02-14 21:47] LABS: MANUAL DIFF FLAG NO
[2022-02-14 21:48] LABS: Basophils Percent Auto 0.3 % (0-2); Eosinophils Percent Auto 0.3 % (0-4); Hematocrit 45.6 % (37.0-47.0); Hemoglobin 15.2 g/dl (12.0-16.0); Imm Gran Abs Auto 0.03 X10*3/uL (0.00-0.03); Imm Gran Pct Auto 0.3 % (0.0-0.4); Lymphocytes Absolute Auto 1.7 X10*3/uL (1.2-4.9); Lymphocytes Percent Auto 14.4 % (20-40); Mean Corpuscular HGB Conc 33.3 g/dl (31.0-35.0); Mean Corpuscular Hemoglobin 29.1 pg (27.0-33.0); Mean Corpuscular Volume 87.4 fL (80.0-98.0); Mean Platelet Volume 9.6 fL (9.4-12.3); Monocytes Absolute Auto 0.8 X10*3/uL (0.1-1.2); Monocytes Percent Auto 6.6 % (2-11); Neutrophils Percent Auto 78.1 % (45-73); Platelet Count 215 X10*3/uL (160-400); Red Blood Count 5.22 X10*6/uL (4.20-5.50); Red Cell Distribution Width 15.7 % (11.0-16.0); White Blood Count 11.5 X10*3/uL (4.8-10.8)
[2022-02-14 22:18] VITALS: BP 147/88; PULSE 75; RESP 16; O2SAT 97
[2022-02-14 23:02] LABS: Alanine Aminotransferase 9 U/L (0-31); Alkaline Phosphatase 73 U/L (39-117); Anion Gap 14 (12-20); Aspartate Amino Transferase 21 U/L (5-31); Bilirubin Total 0.5 mg/dL (0.0-1.0); Blood Urea Nitrogen 10 mg/dL (9-16); Calcium 8.4 mg/dL (8.4-10.2); Carbon Dioxide 24 mmol/L (22-29); Chloride 104 mmol/L (96-108); Creatinine Clr Calc Pharmacy 55.2; Estimated Glomerular Filt Rate > 60; Glucose Random 114 mg/dL (60-115); Potassium 3.9 mmol/L (3.3-5.1); Sodium 138 mmol/L (135-145); Total Protein 6.9 g/dL (6.5-8.0)
[2022-02-15 00:01] LABS: Appearance Urine TURBID; Color Urine YELLOW; Glucose Urine UA NEG (NEG); Leukocyte Esterase Urine NEG (NEG); Nitrite Urine NEG (NEG); Specific Gravity - Urine >= 1.030 (1.005-1.025); UACC Culture Trigger NO; Urine Blood 3+ (NEG); Urine Ketones NEG (NEG); Urine Protein 2+ MG/DL (NEG-TRACE)
[2022-02-15 00:16] LABS: Bacteria Urine 3+ /LPF; Squamous Epithelial Cell Urine 1+ /LPF; WBC Urine 0-2 /HPF (0-4)
[2022-02-15 00:21] VITALS: BP 152/87; PULSE 78; RESP 16; O2SAT 96
[2022-02-15 02:12] VITALS: BP 150/86; PULSE 79; RESP 16; O2SAT 96
--- NOTE | 2022-02-15 04:51 | PC.NURSE ---
I assumed nursing care of Sasha at 1900. Since that eddi she has remained alert, resting in bed without complaints. She was straight cath'd for urine without difficulty. No chest pain no SOB. Speech celar and appropraite. Pt is aware hat she has ambulance transport home at 1030am.
[2022-02-15 06:21] VITALS: BP 148/86; PULSE 82; RESP 16; O2SAT 96
== END 2022-02-15 09:34 | disposition home or self-care (01) ==
PROVIDERS: Emergency Provider Emergency Medicine; PCP Internal Medicine
DX: R10.9 Unspecified abdominal pain (principal); R31.29 Other microscopic hematuria; I10 Essential (primary) hypertension; E11.9 Type 2 diabetes mellitus without complications; E78.5 Hyperlipidemia, unspecified; Z85.51 Personal history of malignant neoplasm of bladder; Z79.82 Long term (current) use of aspirin; Z79.02 Long term (current) use of antithrombotics/antiplatelets
CPT/HCPCS: 36415; 51701; 80053; 81001; 81003; 85025; 99284

== ENCOUNTER 2022-02-16 09:51 | Day surgery (SDC) | payer MEDICARE, SELFPAY ==
[2022-02-09 13:54] VITALS: BMI 17.8
--- NOTE | 2022-02-13 09:08 | HO.ANESPROP2 ---
Documented by User: Mariah Koenig NP 02/13/22 09:09 HPI - Anesthesia Eval Consult details Narrative: 76yo F for Cystoscopy Bladder Fulguration,biopsy s/p TURBT 07/2021 with GA-LMA 4 PMFSH Active Problems Active Problems: All Active Problems (Updated 02/09/22 @ 13:53 by Betzy Bella RN) Abnormal vaginal bleeding in postmenopausal patient (Acute) Blind left eye (Acute) Hyperlipidemia (Acute) Postmenopausal bleeding (Acute) Abnormal cervix finding (Acute) Bladder wall thickening (Acute) Hematuria (Acute) Cystitis cystica (Acute) Pre-op exam (Acute) Diabetes mellitus with coincident hypertension (Acute) CVA (cerebral vascular accident) (Acute) Diabetes mellitus (Acute) Past Medical History Medical History Anemia Bladder cancer Blindness of left eye History of MRSA infection HTN (hypertension) Hx of myocardial infarction Hx of TIA (transient ischemic attack) and stroke Hyperlipidemia Family History Family History Mother No problems noted. Father No problems noted. Family history of problems with anesthesia: No Surgical History Surgical History History of ankle surgery History of bilateral cataract extraction History of cystoscopy History of hip surgery History of tubal ligation History of Problems with Anesthesia: No Social History Social History Household Members: None Housing: Assisted Living Facility Alcohol intake: never Patient Tobacco Use Status: Never used Tobacco e-Cigarette/Vaping Use: Never Used Second Hand Smoke Exposure: No service: No Current occupational status: retired Cognitive needs: No Hearing needs: No Vision needs: Yes Meds Allergies Allergy/AdvReac Type Severity Reaction Status Date / Time No Known Allergies Allergy Mild NONE Verified 02/14/22 19:18 Home Medications Medication Instructions Recorded Confirmed Last Taken Type aspirin 81 mg tablet,delayed 81 mg PO DAILY 11/12/20 02/09/22 02/09/22 History release latanoprost 0.005 % eye drops 1 drp ophthalmic-Left BEDTIME 02/12/21 02/09/22 08/15/21 History timolol maleate 0.5 % eye drops 1 drp ophthalmic-Left DAILY 02/12/21 02/09/22 08/15/21 History glipizide 5 mg tablet 2.5 mg PO BEDTIME 08/16/21 02/09/22 08/15/21 History Exam Exam Date and Time: February 13, 2022 0908 Height,Weight and Vital Signs: Height 5 ft 5 in Weight 48.625 kg Pertinent Lab Results Pertinent Lab Results: Laboratory Tests 09/15/21 09/15/21 05:44 05:44 WBC 4.9 Hgb 10.0 L Hct 32.9 L Plt Count 219 Sodium 143 Potassium 3.8 Chloride 110 H Carbon Dioxide 26 BUN 15 Creatinine 0.67 Assessment and Plan Assessment Anesthesia Assessment: Chart Reviewed Final Anesthetic Review Family History of Problems with Anesthesia: No History of Problems with Anesthesia: No Documented by User: Rg Robbins MD 02/16/22 18:04 HPI - Anesthesia Eval Consult details Narrative: 76yo F for Cystoscopy Bladder Fulguration,biopsy last dose of clopidogrel? 02/09/22 . h/o CVA with occassional speech difficulties 2010. Patient went to the ED over the weekend for abdominal pain , the pain got resolved by the time seen in the ED . When we saw the patient in the pre op she denied any pain and said she had pain earlier but is currently resolved . The case was discussed with the surgeon and he decided to proceed as the abdomen is benign . The patient instructed to immediately go to the ED in case she had recurrent pain or any worsening symptoms . s/p TURBT 07/2021 with GA-LMA 4 PMFSH Past Medical History Medical History Anemia Bladder cancer Blindness of left eye History of MRSA infection HTN (hypertension) Hx of myocardial infarction Hx of TIA (transient ischemic attack) and stroke Hyperlipidemia Family History Family History Mother No problems noted. Father No problems noted. Surgical History Surgical History History of ankle surgery History of bilateral cataract extraction History of cystoscopy History of hip surgery History of tubal ligation Social History Social History Household Members: None Housing: Assisted Living Facility Alcohol intake: never Patient Tobacco Use Status: Never used Tobacco e-Cigarette/Vaping Use: Never Used Second Hand Smoke Exposure: No service: No Current occupational status: retired Cognitive needs: No Hearing needs: No Vision needs: Yes Meds Allergies Allergy/AdvReac Type Severity Reaction Status Date / Time No Known Allergies Allergy Mild NONE Verified 02/14/22 19:18 Home Medications Medication Instructions Recorded Confirmed Last Taken Type aspirin 81 mg tablet,delayed 81 mg PO DAILY 11/12/20 02/09/22 02/09/22 History release latanoprost 0.005 % eye drops 1 drp ophthalmic-Left BEDTIME 02/12/21 02/09/22 08/15/21 History timolol maleate 0.5 % eye drops 1 drp ophthalmic-Left DAILY 02/12/21 02/09/22 08/15/21 History glipizide 5 mg tablet 2.5 mg PO BEDTIME 08/16/21 02/09/22 08/15/21 History Exam Airway Mallampati Class: III TM Dist: >3cm Neck ROM: Full Loose/Missing/Broken Teeth: Yes (poor dentition ) Heart: S1,S2 Lungs: b/l breath sounds Assessment and Plan Assessment Anesthesia Assessment: Anesthesia Plan Discussed Final Anesthetic Review NPO: Yes ASA Class: III Final Preanesthetic Review: Meds/Allgs Chart Reviewed, Consent Obtained/Reviewed and Anes Risks/Benef Reviewed Patient Risk: High Procedure Risk: Intermediate Anesthetic Plan Anesthetic Plan: GA Disposition: Standard PACU
[2022-02-16] VITALS (7 sets, daily range): BP systolic 97–133; BP diastolic 61–76; PULSE 51–81; RESP 14–19; TEMP 36.6–37.4; O2SAT 96–98
[2022-02-16] MEDS: Lactated Ringers 1,000 ML 100 ML IVCONT (11:02)
[2022-02-16 11:32] LABS: Glucose, Whole Blood 126 mg/dL (60-115)
[2022-02-16] MEDS: Acetaminophen 325 MG TABLET 650 MG PO (12:14)
[2022-02-16] MEDS: levoFLOXacin 500 MG TABLET PO (12:14)
--- NOTE | 2022-02-16 13:09 | MHC.SHP ---
Pre-Procedural Eval Section A Date of Service: 02/16/22 The patient is an INPATIENT: No Changes since office visit: No Cold of Flu in the past 2 weeks, No New Medical Problems, No Changes in Medication and No Patient answered all questions The History & Physical has been completed within 30 days and I have reviewed it.: No Section B Chief Complaint: cystitis cystica Details of Present Illness: cystitis cystica here for staging biopsy Relevant Family History (Specify if Yes): No Present Medications: see Short Stay Collaborative assessment Medical History: No relevant PMH History of Previous Operations: Relevant previous surgery/procedure and date(s) Allergies: Allergies Allergy/AdvReac Type Severity Reaction Status Date / Time No Known Allergies Allergy Mild NONE Verified 02/14/22 19:18 Review of Systems Sugical H&P ROS: Negative: Constitution, Cardiovascular, Respiratory, Neurological, Psychiatric, Hem-Onc, Allergic/Immunologic, Gastrointestinal, Genitourinary, Musculoskeletal, Integumentary, Endocrine and Eyes/Ears/Nose/Throat Exam Surgical H&P Exam: Normal: HEENT, Normal: Heart, Normal: Lungs, Normal: Extremities, Normal: Abdomen, Normal: Skin and Normal: Neurological Plan Diagnosis/Plan: Unchanged ( cystoscopy with biopsy cystitis cystica) I have reviewed the history and physical and performed a pertinent physical examination on my patient. No changes have occurred unless specified.
--- NOTE | 2022-02-16 14:02 | W.PM.OPN ---
Operative Note Operative Note Date of Service: 02/16/22 Narrative: PreOperative Diagnosis: cystitis cystica Post Operative Diagnosis: cystitis cystica with cystocele Procedure: cystoscopy with bladder biopsy and fulguration Surgeon: Dr Serge Davidson Anesthesia: sedation Indications for procedure: review of prior inflamed bladder dome with repeat biopsy Procedure: After informed consent was verified the patient was brought to the operating room and placed in a supine position. anesthesia was administered per protocol. patient was placed in modified dorsal lithotomy position and prepped and draped in sterile fashion. Safety pause time-out was performed. Antibiotics have been given. Cystoscopy performed with 22 Bulgarian cystoscope. Upon entry the posterior wall of bladder was covered with small red inflamed areas of mucosa. He has a previously been biopsied and showed to be cystitis cystica. Biopsy was repeated again. Fulguration was performed of the posterior wall. Bladder cystocele with defect in posterior bladder wall could be seen easily dropping down to the interoitus. the dome and anterior wall the bladder were examined. No evidence of the prior question of fistula to be in previously seen. This appears to be fully heal. she tolerated the biopsy and fulguration was extubated and transferred in stable condition to the recovery area Pathology: bladder biopsy Drains: none
[2022-02-16] MEDS: Phenazopyridine HCL 100 MG TABLET PO (14:27)
== END 2022-02-16 15:59 | disposition home or self-care (01) ==
PROVIDERS: PCP Internal Medicine; Visit Provider Urology
PROC: 0T5B8ZZ Destruction of Bladder, Via Natural or Artificial Opening Endoscopic (ICD-10-PCS; CPT 52224; principal; 2022-02-16 11:40)
DX: N30.80 Other cystitis without hematuria (principal); N81.10 Cystocele, unspecified; I10 Essential (primary) hypertension; E78.5 Hyperlipidemia, unspecified; E11.9 Type 2 diabetes mellitus without complications; I25.2 Old myocardial infarction; Z86.73 Personal history of transient ischemic attack (TIA), and cerebral infarction without residual deficits; Z85.51 Personal history of malignant neoplasm of bladder; Z86.14 Personal history of Methicillin resistant Staphylococcus aureus infection; Z79.84 Long term (current) use of oral hypoglycemic drugs; Z79.82 Long term (current) use of aspirin; Z79.899 Other long term (current) drug therapy
CPT/HCPCS: 52224; 82947; 88305; J1100; J3010

== ENCOUNTER → 2022-02-24 08:41 | Outpatient (BNVA) | payer MEDICARE, SELFPAY | PROVIDERS: PCP Internal Medicine; Visit Provider Urology | DX: N30.80 Other cystitis without hematuria (principal); N81.4 Uterovaginal prolapse, unspecified; Z98.890 Other specified postprocedural states | CPT/HCPCS: Q3014 ==

== ENCOUNTER 2022-03-23 09:33 | Outpatient (REF) | payer MEDICARE, SELFPAY ==
[2022-03-23 11:56] LABS: Hematocrit 41.2 % (37.0-47.0); Hemoglobin 12.9 g/dl (12.0-16.0); Mean Corpuscular HGB Conc 31.3 g/dl (31.0-35.0); Mean Corpuscular Hemoglobin 28.7 pg (27.0-33.0); Mean Corpuscular Volume 91.6 fL (80.0-98.0); Mean Platelet Volume 10.3 fL (9.4-12.3); Platelet Count 201 X10*3/uL (160-400); Red Cell Distribution Width 15.6 % (11.0-16.0)
[2022-03-23 12:05] LABS: Estimated Average Glucose 123 mg/dL; Hemoglobin A1c % 5.9 %
[2022-03-23 12:37] LABS: Anion Gap 14 (12-20); Blood Urea Nitrogen 19 mg/dL (9-16); Calcium 8.9 mg/dL (8.4-10.2); Carbon Dioxide 23 mmol/L (22-29); Chloride 109 mmol/L (96-108); Estimated Glomerular Filt Rate > 60; Glucose Random 195 mg/dL (60-115); Potassium 3.8 mmol/L (3.3-5.1); Sodium 142 mmol/L (135-145)
[2022-03-23 12:38] LABS: Anion Gap 12 (12-20); Blood Urea Nitrogen 19 mg/dL (9-16); Carbon Dioxide 24 mmol/L (22-29); Chloride 110 mmol/L (96-108); Estimated Glomerular Filt Rate > 60; Glucose Random 199 mg/dL (60-115); Potassium 3.8 mmol/L (3.3-5.1); Sodium 142 mmol/L (135-145)
== END 2022-03-23 09:34 | disposition home or self-care (01) ==
LOC: HO.LAB 09:33
PROVIDERS: Nurse Practitioner Family; PCP Internal Medicine; Visit Provider Internal Medicine
DX: N95.0 Postmenopausal bleeding (principal); R51.9 Headache, unspecified; E11.9 Type 2 diabetes mellitus without complications
CPT/HCPCS: 36415; 80048; 83036; 85027

== ENCOUNTER 2022-04-03 13:11 | Inpatient (IN) | payer MEDICARE, SELFPAY ==
[2022-04-03] VITALS (11 sets, daily range): BP systolic 144–246; BP diastolic 81–141; PULSE 60–84; RESP 14–16; O2SAT 98–100; BMI 20.2; BMI 21.7
--- NOTE | ~2022-04-03 | CT_ITS ---
EXAMINATION: CT HEAD WITHOUT CONTRAST (STROKE PROTOCOL) CLINICAL INFORMATION: Stroke protocol. Sudden unresponsiveness. Prominent hypertension. COMPARISON: Noncontrast CT head 04/16/2017 TECHNIQUE: Contiguous axial imaging was performed from the skull base to vertex without intravenous administration of contrast. This CT examination was performed using dose optimization techniques as appropriate, variously including the following: *Automated exposure control *Adjustment of mA and/or kV according to patient size (this includes techniques or standardized protocols for targeted exams where dose is matched to indication/reason for exam; i.e. extremities or head) *Use of iterative reconstruction technique DLP: 680 mGy-cm FINDINGS: There is acute intraparenchymal hemorrhage involving the marlen approximately 2 cm in diameter. There is preservation of the basal cisterns. No herniation. No subarachnoid or intraventricular hemorrhage. The ventricles are normal in size. No hydrocephalus. There is generalized volume loss with prominence of the cortical sulci and fissures and cisterns. Again, there is periventricular white matter gliosis consistent with chronic small vessel ischemic changes. An old posterior left frontal infarct also present. The mendez-white matter differentiation appears symmetric. The calvarium appears intact. There is no pneumocephalus or orbital emphysema. The visualized sinuses and middle ears and mastoid air cells show no significant mucosal thickening. There are no air-fluid levels. Results called to RENÉE Jung in the emergency department at [address]/CT head for stroke IMPRESSION: -Acute intraparenchymal hemorrhage involving the marlen, approximately 2 cm in diameter. -No intraventricular or subarachnoid hemorrhage. Basal cisterns preserved. -Generalized atrophic changes. Old periventricular white matter gliosis and old left posterior frontal infarct.
--- NOTE | ~2022-04-03 | XR_ITS ---
EXAMINATION: XR CHEST CLINICAL INFORMATION: Post intubation. COMPARISON: 07/05/2017 chest radiograph. TECHNIQUE: Frontal view of the chest was obtained. FINDINGS: Support devices: Endotracheal tube with tip approximately 3 cm proximal to darryl. No significant abnormality is noted involving the heart, lungs, mediastinum, bony thorax or soft tissues. XR/XR chest 1V IMPRESSION: 1. Endotracheal tube positioned approximately 3 cm proximal to darryl. 2. No acute cardiopulmonary process.
--- NOTE | ~2022-04-03 | CT_ITS ---
EXAMINATION: CT CERVICAL SPINE WITHOUT CONTRAST CLINICAL INFORMATION: Fall, trauma. COMPARISON: CT cervical spine 04/01/2017; CT head 04/03/2022, 04/01/2017. Chest radiograph 07/05/2017. TECHNIQUE: Multidetector volumetric CT imaging of the cervical spine is performed without contrast in the axial plane. Additional 2D reformatted coronal and sagittal images are generated on the CT workstation and uploaded to PACS. This CT examination was performed using dose optimization techniques as appropriate, variously including the following: *Automated exposure control *Adjustment of mA and/or kV according to patient size (this includes techniques or standardized protocols for targeted exams where dose is matched to indication/reason for exam; i.e. extremities or head) *Use of iterative reconstruction technique DLP: 307 mGy-cm FINDINGS: There is no vertebral compression fracture, fracture line, or prevertebral soft tissue swelling. The craniocervical junction appears normal. The odontoid appears intact. There is normal cervical lordosis. There are degenerative changes between anterior arch C1 and the dens. There is anterior vertebral spurring at C5-C6 and C6-C7. Facet degeneration is present and upper cervical spine. There is borderline spondylolisthesis at C3-C4, in retrospect table from prior CT 2017. No apical pneumothorax. There is a right apical nodule approximately 5 x 6 mm, beyond field of view on prior CT 2017. The pontine hemorrhage described on today's CT had is again noted. CT/CT cervical spine wo con IMPRESSION: 1. No acute bony abnormality or prevertebral soft tissue swelling. 2. Right apical nodule 5 x 6 mm, beyond field of view on prior CT C-spine 2017. 3. Acute intraparenchymal hemorrhage marlen as noted on today's CT head.
--- NOTE | 2022-04-03 13:24 | ECG_ITS ---
Test Reason : UNRESPONSIVE Blood Pressure : / mmHG Vent. Rate : 077 BPM Atrial Rate : 077 BPM P-R Int : 164 ms QRS Dur : 076 ms QT Int : 420 ms P-R-T Axes : 064 013 053 degrees QTc Int : 475 ms Normal sinus rhythm Low voltage QRS Borderline ECG When compared with ECG of 05-JUL-2017 12:21, No significant change was found Referred By: Lorena Elam Electronically Signed By:RAD DIAZ MD
--- NOTE | 2022-04-03 13:29 | PC.NURSE ---
patient transported to CT with this RN on quality assurance monitor final . patient appears to either aspirated or had seizure activity with legs also shaking . patient immediately turned to right side , suctioned small amount of clear liquid from mouth .
[2022-04-03] MEDS: ondansetron HCL 4 MG/2 ML VIAL IVPUSH (13:30)
--- NOTE | 2022-04-03 13:30 | PC.NURSE ---
patient unresponsive . pupils unreactive . bilateral arm limpness noted . bilateral weakness noted in lower extremities . decorticated posturing in left leg noted . painful retraction to left arm noted from stimuli .
--- NOTE | 2022-04-03 13:47 | ED_ITS ---
HPI - General Adult General Chief complaint: General Medical Stated complaint: Went unresponsive in dr office Time Seen by Provider: 04/03/22 13:21 Source: other (office staff) Mode of arrival: wheelchair Limitations: altered mental status History of Present Illness HPI narrative: 76-year-old female who comes in in a wheelchair after being found unresponsive outside Ophthalmology office. Patient had her eye exam and was outside waiting for the bus when staff went out to check on her and found her unresponsive. It is unclear whether there was any fall or injury. She was brought across the street in a wheelchair by ophthalmology staff. On arrival the patient was vomiting, nonverbal, not following commands. Patient unable to provide any history of present illness. On review of chart patient has an underlying medical history of CVA with some speech difficulty on Plavix, high blood pressure, high cholesterol, diabetes. Related Data Home Medications Medication Instructions Recorded Confirmed aspirin 81 mg tablet,delayed 81 mg PO DAILY 11/12/20 03/23/22 release latanoprost 0.005 % eye drops 1 drp ophthalmic-Left BEDTIME 02/12/21 03/23/22 timolol maleate 0.5 % eye drops 1 drp ophthalmic-Left DAILY 02/12/21 03/23/22 glipizide 5 mg tablet 2.5 mg PO BEDTIME 08/16/21 03/23/22 Previous Rx's Medication Instructions Recorded lisinopril 5 mg tablet 5 mg PO DAILY #90 tabs 11/21/21 clopidogrel 75 mg tablet 75 mg PO DAILY #90 tabs 01/27/22 sulfamethoxazole 400 1 tab PO BEDTIME 90 days #90 tabs 02/02/22 mg-trimethoprim 80 mg tablet (Bactrim) simvastatin 40 mg tablet 40 mg PO BEDTIME #30 tabs 02/25/22 metformin 500 mg tablet 500 mg PO BID #180 tabs 03/20/22 Allergies Allergy/AdvReac Type Severity Reaction Status Date / Time No Known Allergies Allergy Mild NONE Verified 02/24/22 07:23 Review of Systems Review of Systems: Yes Unobtainable due to mental status PMFSH Past Medical History Attestation statement: The following information was validated with the patient. Source: old records reviewed and nursing notes reviewed Medical History Anemia Blindness of left eye Diabetes mellitus History of MRSA infection HTN (hypertension) Hx of myocardial infarction Hx of TIA (transient ischemic attack) and stroke Hyperlipidemia Surgical History History of ankle surgery History of bilateral cataract extraction History of cystoscopy History of hip surgery History of tubal ligation Family History Family History Mother No problems noted. Father No problems noted. Social History Social History Household Members: None Housing: Assisted Living Facility Alcohol intake: never Patient Tobacco Use Status: Never used Tobacco e-Cigarette/Vaping Use: Never Used Second Hand Smoke Exposure: No Advance Directives: No Advance Directives Information Provided: No service: No Current occupational status: retired Cognitive needs: No Hearing needs: No Vision needs: Yes Physical Exam ED Vital Signs: Vital Signs - 24 hr 04/03/22 13:28 04/03/22 14:15 04/03/22 13:47 Pulse Rate 66 62 Respiratory Rate 14 15 Blood Pressure 226/125 H 213/107 H Pulse Oximetry 98 100 Oxygen Delivery Method Room Air Nasal Cannula Oxygen Flow Rate 2 Fraction of Inspired Oxygen 100 04/03/22 13:59 04/03/22 14:32 04/03/22 14:09 Pulse Rate 60 80 80 Respiratory Rate 14 16 Blood Pressure 193/96 H 144/81 H 246/141 H Pulse Oximetry 99 99 Oxygen Delivery Method Nasal Cannula Mechanical Ventilation Oxygen Flow Rate 2 40 Fraction of Inspired Oxygen 04/03/22 14:17 04/03/22 16:06 04/03/22 16:17 Pulse Rate 76 76 77 Respiratory Rate 16 Blood Pressure 182/105 H 183/103 H 155/89 H Pulse Oximetry 100 100 Oxygen Delivery Method Mechanical Ventilation Oxygen Flow Rate 40 Fraction of Inspired Oxygen BMI result Body Mass Index 21.7 Const Limitations: altered mental status HENMT Head: Yes normal to inspection, No Chester's sign and No raccoon eyes General nose exam: Normal external nose present Eyes Other: L pupil dilated-nonreactive with cataract R pupil 2mm sluggish General: appearance normal, both eyes and all related structures Neck Neck: Yes normal visual inspection Chest Chest palpation & inspection: normal inspection of the chest Resp Other: grunting, shallow breathing Cardio Rate: regular rate Rhythm: regular rhythm Peripheral pulses: Peripheral pulses 2+ throughout GI Inspection: Yes normal to inspection Back/Spine/Pelvis Thoracic/Lumbar Spine: thoracic and lumbar spine normal to inspection Skin General skin exam: no rashes or lesions noted Neuro Other: GCS 7 (eyes are open, non verbal, rigid lower extremities w/ no motor movement of lower or upper extremities) Course Course Course Narrative: 1330-while patient was in CT scan she was noted to have some decerebrate movement. Independently after reviewing the CT scan the patient was noted to have what appears to be hemorrhagic lesion. CT cervical spine ordered. Unclear if there was associated trauma. Head [address] 1340-while I was speaking to Dr Brown, Dr. Eaton was on the phone with family to evaluate code status. Per Dr. Brown give the patient appears to have a 2 cm hemorrhagic lesion in the marlen. At this time family would like the patient intubated after we explained to the family that the patient is not able to maintain her airway at this time (Dylan garcia [phone]). Lengthy discussion with family about prognosis and goals of care. At this time they would like the patient intubated and would like to evaluate goals of care after intubation. 1400-we do not have neurosurgery available at this hospital therefore we called the nearest tertiary care center for potential transfer ([facility]). Pending call back 1415-patient was intubated by Dr. Eaton 7.0 ETT with rocuronium and etomidate. Prior to intubation she continued to display decerebrate movements. Post intubation film shows good placement. Patient has 2 peripheral IVs. Nursing to place Melendez catheter. Propofol ordered for sedation as needed in addition to Cardene for blood pressure control with goal blood pressure of 160 systolic. Patient given 1 g of Keppra. 1430-no call back from [facility]. We called back and spoke to the transfer line and they will re-page to neuro for call back 1445-I received a call back from the neuro personal care assistant Bg King at [facility]. We discussed poor prognosis with no option for intervention. He accepted the patient however there are no neuro ICU beds. The patient will be going to a medical ICU bed with accepting doctor anthony. We are waiting for a call back with bed assignment. He recommended giving mannitol a 1 time dose. We discussed patient blood pressure 140 systolic.. He recommended giving fluid bolus as mannitol may a lower blood pressure further. 1450-I spoke to the 2 daughters and granddaughter at length about the patient's prognosis and goals of care and person. At this time they would like to discuss at the family and understand the patient's prognosis is not good at this time. They tell me patient would not wish to be transferred to [facility] for care there. They tell me the patient discontinued all medications one week ago including her blood pressure medications. 1530-the family spent time discussing what their wishes are further mom after understanding the poor prognosis. They would like to move forward with making the patient [employer]. They do have family who live in [place] and they would like the family to be here prior to extubation. [facility] was notified. A morphine drip was ordered for comfort. Comfort care meds were also ordered. Case management informed. 1730-There is available bed for patient once she is extubated and admitted. I did notify Dr Guidry as patient will need admission post extubation for [employer] and per CM will qualify for GIP admission. 1815-The family is all here and is ready to move forward with extubation. At 1825 she was extubated with nursing, RT and Dr Weston at the bedside. Family was there. 1830-Sign out to Dr Weston pending admission to medicine service for [employer]. Procedures Procedure Narrative Procedure Narrative: At 1825 patient was extubated. Intubation Time out performed: Yes sedative: Etomidate Mg Given: 10 paralytic: Rocuronium Mg Given: 50 Laryngoscope: fiber optic video scope ET Tube Size: 7 ET Tube Uncuffed: No Tube Secured Depth (cm): 23 Tube Secured Location: lips Tube Placement Confirmation: visualized tube passing through cords, equal breath sounds bilaterally, no breath sounds over epigastrium and confirmation by capnometry Patient Tolerated Procedure: well Intubation Complications: none Medical Decision Making MDM Narrative Medical decision making narrative: 76-year-old female who has a history of CVA on Plavix, high blood pressure, high cholesterol, diabetes presents after being found down unresponsive outside a Ophthalmology office. Patient was wheeled over from the office after being found by staff and on arrival has her eyes open but is not following commands, r igid tone, vomiting with sluggish right pupil, dilated nonreactive left pupil. Patient is quite hypertensive on arrival 240s/ 120s. Patient immediately placed in room. Seen at the bedside in conjunction with Dr. Eaton. Patient brought immediately to CT after obtaining a blood glucose of 203. Concern for intracranial hemorrhage, cva seizure, syncope Medical Records Medical records reviewed: Yes I reviewed the patient's medical records. Lab Data Lab results reviewed: Yes I reviewed the patient's lab results. Result diagrams: 04/03/22 13:53 04/03/22 13:53 Labs: Lab Results 04/03/22 04/03/22 04/03/22 Range/Units 13:22 13:53 13:53 WBC 4.1 L (4.8-10.8) X10*3/uL RBC 4.95 (4.20-5.50) X10*6/uL Hgb 14.4 (12.0-16.0) g/dl Hct 43.8 (37.0-47.0) % MCV 88.5 (80.0-98.0) fL MCH 29.1 (27.0-33.0) pg MCHC 32.9 (31.0-35.0) g/dl RDW 14.2 (11.0-16.0) % Plt Count 165 (160-400) X10*3/uL MPV 10.2 (9.4-12.3) fL Immature Gran % (Auto) 0.7 H (0.0-0.4) % Neut % (Auto) 57.6 (45-73) % Lymph % (Auto) 31.8 (20-40) % Converse % (Auto) 6.9 (2-11) % Eos % (Auto) 2.0 (0-4) % Baso % (Auto) 1.0 (0-2) % Lymph # (Auto) 1.3 (1.2-4.9) X10*3/uL Converse # (Auto) 0.3 (0.1-1.2) X10*3/uL Eos # (Auto) 0.1 (0.0-0.4) X10*3/uL Baso # (Auto) 0.0 (0.0-0.2) X10*3/uL Abs Immat Gran (auto) 0.03 (0.00-0.03) X10*3/uL Absolute Neuts (auto) 2.3 (2.0-8.3) x10*3/uL Absolute Nucleated RBC 0.000 (0.0-0.012) X10*3/uL Nucleated RBC % (auto) 0.0 (0.0-0.2) /100WBC PT (10.0-13.1) SEC INR (0.9-1.1) POC Glucose 208 H (60-115) mg/dL Lactic Acid (0.5-2.0) mmol/L Troponin I High Sens 3.6 (<3.5-17.0) ng/L COVID-19 (PO) (Negative) COVID-19 Clin Com 04/03/22 04/03/22 04/03/22 Range/Units 13:53 13:53 13:53 WBC (4.8-10.8) X10*3/uL RBC (4.20-5.50) X10*6/uL Hgb (12.0-16.0) g/dl Hct (37.0-47.0) % MCV (80.0-98.0) fL MCH (27.0-33.0) pg MCHC (31.0-35.0) g/dl RDW (11.0-16.0) % Plt Count (160-400) X10*3/uL MPV (9.4-12.3) fL Immature Gran % (Auto) (0.0-0.4) % Neut % (Auto) (45-73) % Lymph % (Auto) (20-40) % Converse % (Auto) (2-11) % Eos % (Auto) (0-4) % Baso % (Auto) (0-2) % Lymph # (Auto) (1.2-4.9) X10*3/uL Converse # (Auto) (0.1-1.2) X10*3/uL Eos # (Auto) (0.0-0.4) X10*3/uL Baso # (Auto) (0.0-0.2) X10*3/uL Abs Immat Gran (auto) (0.00-0.03) X10*3/uL Absolute Neuts (auto) (2.0-8.3) x10*3/uL Absolute Nucleated RBC (0.0-0.012) X10*3/uL Nucleated RBC % (auto) (0.0-0.2) /100WBC PT 12.5 (10.0-13.1) SEC INR 1.1 (0.9-1.1) POC Glucose (60-115) mg/dL Lactic Acid 1.0 (0.5-2.0) mmol/L Troponin I High Sens (<3.5-17.0) ng/L COVID-19 (PO) Negative (Negative) COVID-19 Clin Com See Note Imaging Data CT scan - head: Attestation: I personally reviewed and interpreted this imaging study as follows: Radiologist's impression: FINDINGS: There is acute intraparenchymal hemorrhage involving the marlen approximately 2 cm in diameter. There is preservation of the basal cisterns. No herniation. No subarachnoid or intraventricular hemorrhage. The ventricles are normal in size. No hydrocephalus. There is generalized volume loss with prominence of the cortical sulci and fissures and cisterns. Again, there is periventricular white matter gliosis consistent with chronic small vessel ischemic changes. An old posterior left frontal infarct also present. The mendez-white matter differentiation appears symmetric. The calvarium appears intact. There is no pneumocephalus or orbital emphysema.? The visualized sinuses and middle ears and mastoid air cells show no significant mucosal thickening. There are no air-fluid levels. Results called to RENÉE Jung in the emergency department at [address]/CT head for stroke IMPRESSION: -Acute intraparenchymal hemorrhage involving the marlen, approximately 2 cm in diameter. -No intraventricular or subarachnoid hemorrhage. Basal cisterns preserved. -Generalized atrophic changes. Old periventricular white matter gliosis and old left posterior frontal infarct. ct cervical spine: Attestation: I personally reviewed and interpreted this imaging study as follows: Radiologist's impression: [address] [address] [address] Scan Report Signed Patient: Sasha Rasheed MR#: [id number] : 1945 Acct:[id number] Age/Sex: 76 / F ADM Date: 04/03/22 Loc: HO.ED Attending Dr: Ordering Physician: Lorena Elam NP Date of Service: 04/03/22 Procedure(s): CT cervical spine wo con Accession Number(s): [id number] cc: Lorena Elam NP~ EXAMINATION: CT CERVICAL SPINE WITHOUT CONTRAST CLINICAL INFORMATION: Fall, trauma. COMPARISON: CT cervical spine 04/01/2017; CT head 04/03/2022, 04/01/2017. Chest radiograph 07/05/2017. TECHNIQUE: Multidetector volumetric CT imaging of the cervical spine is performed without contrast in the axial plane.? Additional 2D reformatted coronal and sagittal images are generated on the CT workstation and uploaded to PACS. This CT examination was performed using dose optimization techniques as appropriate, variously including the following: *Automated exposure control *Adjustment of mA and/or kV according to patient size (this includes techniques or standardized protocols for targeted exams where dose is matched to indication/reason for exam; i.e. extremities or head) *Use of iterative reconstruction technique DLP: 307 mGy-cm FINDINGS: There is no vertebral compression fracture, fracture line, or prevertebral soft tissue swelling. The craniocervical junction appears normal. The odontoid appears intact. There is normal cervical lordosis. There are degenerative changes between anterior arch C1 and the dens. There is anterior vertebral spurring at C5-C6 and C6-C7. Facet degeneration is present and upper cervical spine. There is borderline spondylolisthesis at C3-C4, in retrospect table from prior CT 2017. No apical pneumothorax. There is a right apical nodule approximately 5 x 6 mm, beyond field of view on prior CT 2017. The pontine hemorrhage described on today's CT had is again noted. CT/CT cervical spine wo con IMPRESSION: 1.? No acute bony abnormality or prevertebral soft tissue swelling. 2.? Right apical nodule 5 x 6 mm, beyond field of view on prior CT C-spine 2017. 3.? Acute intraparenchymal hemorrhage marlen as noted on today's CT head. Chest x-ray: Attestation: I personally reviewed and interpreted this imaging study as follows: Radiologist's impression: EXAMINATION: XR CHEST CLINICAL INFORMATION: Post intubation. COMPARISON: 07/05/2017 chest radiograph. TECHNIQUE: Frontal view of the chest was obtained. FINDINGS: Support devices: Endotracheal tube with tip approximately 3 cm proximal to darryl. No significant abnormality is noted involving the heart, lungs, mediastinum, bony thorax or soft tissues. XR/XR chest 1V IMPRESSION: 1. Endotracheal tube positioned approximately 3 cm proximal to darryl. 2. No acute cardiopulmonary process. ? ECG Data Attestation: I personally reviewed and interpreted this ECG as follows: Interpretation: Normal sinus rhythm with a rate of 77, normal AR, normal QRS, normal QT Critical Care Time Critical Care Time Critical Care Time: Yes Total Critical Care Time: 120 Attestation: GCS 7 requiring intubation, intracranial hemorrhage requiring discussion with Neuro ICU and transfer to tertiary care center. Discussion of goals of care with family. Discharge Plan Discharge Clinical Impression: Intracranial bleeding Patient Disposition: Xfer [facility] Hospital Transfer Details: SNF Prescriptions: No Action lisinopril 5 mg tablet 5 mg PO DAILY Qty: 90 8RF clopidogrel 75 mg tablet 75 mg PO DAILY Qty: 90 8RF sulfamethoxazole-trimethoprim [Bactrim] 400-80 mg tablet 1 tab PO BEDTIME 90 Days Qty: 90 0RF simvastatin 40 mg tablet 40 mg PO BEDTIME Qty: 30 7RF metformin 500 mg tablet 500 mg PO BID Qty: 180 8RF glipizide 5 mg tablet 2.5 mg PO BEDTIME aspirin 81 mg tablet,delayed release (DR/EC) 81 mg PO DAILY latanoprost 0.005 % drops 1 drp ophthalmic-Left BEDTIME timolol maleate 0.5 % drops 1 drp ophthalmic-Left DAILY
[2022-04-03 13:59] LABS: MANUAL DIFF FLAG NO
[2022-04-03 14:03] LABS: Eosinophils Absolute Auto 0.1 X10*3/uL (0.0-0.4); Hematocrit 43.8 % (37.0-47.0); Hemoglobin 14.4 g/dl (12.0-16.0); Imm Gran Abs Auto 0.03 X10*3/uL (0.00-0.03); Imm Gran Pct Auto 0.7 % (0.0-0.4); Lymphocytes Absolute Auto 1.3 X10*3/uL (1.2-4.9); Lymphocytes Percent Auto 31.8 % (20-40); Mean Corpuscular HGB Conc 32.9 g/dl (31.0-35.0); Mean Corpuscular Hemoglobin 29.1 pg (27.0-33.0); Mean Corpuscular Volume 88.5 fL (80.0-98.0); Mean Platelet Volume 10.2 fL (9.4-12.3); Monocytes Absolute Auto 0.3 X10*3/uL (0.1-1.2); Monocytes Percent Auto 6.9 % (2-11); Neutrophils Absolute Auto 2.3 x10*3/uL (2.0-8.3); Neutrophils Percent Auto 57.6 % (45-73); Platelet Count 165 X10*3/uL (160-400); Red Blood Count 4.95 X10*6/uL (4.20-5.50); Red Cell Distribution Width 14.2 % (11.0-16.0); White Blood Count 4.1 X10*3/uL (4.8-10.8)
--- NOTE | 2022-04-03 14:05 | PC.NURSE ---
decision to intubate by MD . Doctor Angelito spoke to family . Family aware of plan of care . patient moved to room 5 Respiratory at bedside . 1406 patient given etomidate 10 mg IVP, rocuronium 50 mg IVP. 1407 patient intubated with endotrachal tube #7, 23 at the right lip . vent settings AC 16 , VT 300 , O2 50% , peep 5 . 1410 propfal 30mcg/kg/hr initiated . X-ry portable done at bedside 1414 nicrardipine 5mg/hr drip initiated
[2022-04-03 14:06] LABS: Glucose, Whole Blood 208 mg/dL (60-115)
[2022-04-03] MEDS: Etomidate 20 MG/10 ML VIAL 10 MG IVPUSH (14:06)
[2022-04-03 14:10] LABS: INTERNATIONAL NORM RATIO 1.1 (0.9-1.1); Prothrombin Time 12.5 SEC (10.0-13.1)
[2022-04-03] MEDS: propofoL 1,000 MG/100 ML VIAL 8.78 MG IVCONT (14:10)
[2022-04-03] MEDS: niCARdipine HCL 25 MG in 0.9 % Sodium Chloride 250 ML 52 MG IVCONT (14:15)
[2022-04-03 14:21] LABS: COVID-19 Test Negative (Negative); IDNOW Serial# 9DB6401D
[2022-04-03 14:22] LABS: Troponin-I High Sensitivity 3.6 ng/L (<3.5-17.0)
[2022-04-03] MEDS: levETIRAcetam in NaCl (iso-os) 1,000 MG/100 ML PIGGYBACK 400 MG IV (14:39)
[2022-04-03] MEDS: MannitoL 12.5 GM/50 ML VIAL IV (15:14)
--- NOTE | 2022-04-03 16:13 | PC.NURSE ---
KALEIGH MCNEILL SAID NOT TO BOTHER GET VITALS OR POC ON PATIENT .
[2022-04-03] MEDS: Morphine Sulfate/NS 100 MG/100 ML PLAST..BAG IVCONT (18:22)
[2022-04-03] MEDS: Scopolamine 1.5 MG PATCH.TD.3 TRANSDERMA (18:22)
[2022-04-03] MEDS: Glycopyrrolate 0.2 MG/ML VIAL 0.1 MG IVPUSH (18:23)
--- NOTE | 2022-04-03 18:41 | MHC.CM.ED ---
Addendum entered by Shara Montes 04/03/22 18:50: HCP on file (08/25/21). HCP/daughter Radhika Aguilar ([phone]). Original Note: CM was asked to meet with family by Carolyn CHINCHILLA. Pt has large brain stem bleed and her prognosis is grave. Pt is intubated and on propofol drip. Plan is to wait for son to arrived from [facility] and then to extubate with [employer]. Pt will be on a Morphine Drip. Pt will be admitted to [facility] hospice. Family is agreeable to plan. CM made referral in [facility] to [facility] and called [facility] and spoke with Jerri. History given. Jerri will alert weekend staff to patient admission for [facility] hospice. Family, Karthik Peña RN, Gem and respiratory therapy and CM present for extubation. Pt with decerebrate movements and yawn. Pt continues to breath on her own. Morphine drip. Contact card given to daughter Dylan. CM available to family if needed. CM will follow for any needs family may have.
--- NOTE | 2022-04-03 18:51 | PC.NURSE ---
All family at bedside. Plan to move forward with comfort measures. Respiratory at bedside for extubation, extubated without complications. All questions answered by provider at this time. Plan for inpatient bed assignment
--- NOTE | 2022-04-03 22:35 | PC.NURSE ---
Instructed by dr davenport to decrease morphine to 1 mg, as long as pt appears comfortable.
[2022-04-04 00:18] VITALS: BP 184/91; PULSE 71; RESP 16; TEMP 36.6; O2SAT 97
[2022-04-04 00:20] VITALS: BP 184/91; PULSE 71; RESP 16; O2SAT 97
--- NOTE | 2022-04-04 00:30 | PC.NURSE ---
per dr WEAVER ORDER, STEWARD/STEWARDESS WINE PUMP INFUSION DECREASED TO 1 MG/HR. PT COMFORTABLE
--- NOTE | 2022-04-04 00:33 | PC.NURSE ---
Witnessed rate decreased of on going Morphine OPTICAL MODEL MAKER AND TESTER to 1mg/hr.
--- NOTE | 2022-04-04 02:09 | PM.IMHP ---
History of Present Illness Date of Service: 04/03/22 Chief Complaint: Fall 76-year-old female with a past medical history of hypertension, hyperlipidemia, diabetes, history of TIA, blind in the left eye, anemia presented to the ER after a fall. Patient was waiting for a bus at the [facility], patient was later noted to be unresponsive; subsequently brought her to the ER. ER team noted that patient had sluggish reaction on the right pupil, nonreactive left pupil, regular rate and rhythm, patient noted to be grunting and had shallow breathing, GCS 7; immediately CT head and CT C-spine were ordered. 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 ER team spoke to [facility] Neuro ICU- who mentioned no intervention, poor prognosis, no Neuro ICU beds; subsequently patient was accepted to medical ICU. 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 subsequently patient was generally extubated. Started on morphine drip. Admitted to the hospital. [facility] Medical History Anemia Blindness of left eye Diabetes mellitus History of MRSA infection HTN (hypertension) Hx of myocardial infarction Hx of TIA (transient ischemic attack) and stroke Hyperlipidemia Family History Mother No problems noted. Father No problems noted. Surgical History History of ankle surgery History of bilateral cataract extraction History of cystoscopy History of hip surgery History of tubal ligation Social History Household Members: None Housing: Assisted Living Facility Alcohol intake: never Patient Tobacco Use Status: Never used Tobacco e-Cigarette/Vaping Use: Never Used Second Hand Smoke Exposure: No service: No Current occupational status: retired Cognitive needs: No Hearing needs: No Vision needs: Yes Meds Allergies Allergy/AdvReac Type Severity Reaction Status Date / Time No Known Allergies Allergy Mild NONE Verified 02/24/22 07:23 Active Medications: Current Medications Glycopyrrolate (Glycopyrrolate 0.2 Mg/Ml Vial) 0.1 mg IVPUSH QID PRN PRN Reason: secretions Last Admin: 04/03/22 18:23 Dose: 0.1 mg Haloperidol Lactate (Haloperidol Lactate 10 Mg/5 Ml Oral.Conc) 1 mg SUBLINGUAL Q4H PRN PRN Reason: Anxiety/Restlessness/Delirium Nicardipine HCl 25 mg/ Sodium (Chloride) 260 mls @ 0 mls/hr IVCONT .Q0M [facility]; Protocol Last Titration: 04/03/22 14:23 Dose: 0 mg/hr, 0 mls/hr Propofol (Diprivan) 1,000 mg in 100 mls @ 0 mls/hr IVCONT .Q0M [facility]; Protocol Last Titration: 04/03/22 16:06 Dose: 35 mcg/kg/min, 10.25 mls/hr Morphine Sulfate () 100 mg in 100 mls @ 0 mls/hr IVCONT .Q0M [facility]; Protocol Last Infusion: 04/04/22 00:20 Dose: 1 mg/hr, 1 mls/hr Lorazepam (Lorazepam 1 Mg Tablet) 2 mg SUBLINGUAL Q4H PRN PRN Reason: anxiety/restlessness Scopolamine (Scopolamine 1.5 Mg Patch.Td.3) 1.5 mg TRANSDERMA Q72H [facility] Last Admin: 04/03/22 18:22 Dose: 1.5 mg Sodium Chloride (0.9 % Sodium Chloride Flush 3 Ml Syringe) 3 ml IVFLUSH QSHIFT [facility] Last Admin: 04/04/22 00:07 Dose: Not Given Home Medications Medication Instructions Recorded Confirmed Last Taken Type aspirin 81 mg tablet,delayed 81 mg PO DAILY 11/12/20 03/23/22 02/09/22 History release latanoprost 0.005 % eye drops 1 drp ophthalmic-Left BEDTIME 02/12/21 03/23/22 08/15/21 History timolol maleate 0.5 % eye drops 1 drp ophthalmic-Left DAILY 02/12/21 03/23/22 08/15/21 History glipizide 5 mg tablet 1 tab PO DAILY 04/03/22 Unknown History Physical Exam Vital Signs and Narrative: Vital Signs: Last Vital Signs Temp 97.8 F 04/04/22 00:18 Pulse 71 04/04/22 00:20 Resp 16 04/04/22 00:20 BP 184/91 H 04/04/22 00:20 Pulse Ox 97 04/04/22 00:20 O2 Del Method 04/04/22 00:18 O2 Flow Rate 40 04/03/22 16:17 FiO2 100 04/03/22 14:15 BMI result Body Mass Index 21.7 Patient lying in the bed ; does not appear to be in pain Breathing comfortably. Spoke to the family at bedside Results Labs CBC and Chem 7: 04/03/22 13:53 04/03/22 13:53 Labs: Laboratory Results - last 24 hr 04/03/22 04/03/22 04/03/22 13:22 13:53 13:53 MCV 88.5 MCH 29.1 MCHC 32.9 RDW 14.2 Plt Count 165 MPV 10.2 Immature Gran % (Auto) 0.7 H Neut % (Auto) 57.6 Lymph % (Auto) 31.8 [place] % (Auto) 6.9 Eos % (Auto) 2.0 Baso % (Auto) 1.0 Lymph # (Auto) 1.3 [place] # (Auto) 0.3 Eos # (Auto) 0.1 Baso # (Auto) 0.0 Abs Immat Gran (auto) 0.03 Absolute Neuts (auto) 2.3 Absolute Nucleated RBC 0.000 Nucleated RBC % (auto) 0.0 PT INR Anion Gap Cancelled Estim Creat Clear Calc Cancelled Estimated GFR Cancelled POC Glucose 208 H Random Glucose Cancelled Lactic Acid Calcium Cancelled Magnesium Cancelled Total Bilirubin Cancelled Direct Bilirubin Cancelled AST Cancelled ALT Cancelled Alkaline Phosphatase Cancelled Total Creatine Kinase Cancelled Total Protein Cancelled Albumin Cancelled COVID-19 (PO) COVID-19 Clin Com 04/03/22 04/03/22 04/03/22 13:53 13:53 13:53 MCV MCH MCHC RDW Plt Count MPV Immature Gran % (Auto) Neut % (Auto) Lymph % (Auto) [place] % (Auto) Eos % (Auto) Baso % (Auto) Lymph # (Auto) [place] # (Auto) Eos # (Auto) Baso # (Auto) Abs Immat Gran (auto) Absolute Neuts (auto) Absolute Nucleated RBC Nucleated RBC % (auto) PT 12.5 INR 1.1 Anion Gap Estim Creat Clear Calc Estimated GFR POC Glucose Random Glucose Lactic Acid 1.0 Calcium Magnesium Total Bilirubin Direct Bilirubin AST ALT Alkaline Phosphatase Total Creatine Kinase Total Protein Albumin COVID-19 (PO) Negative COVID-19 Clin Com See Note Imaging Radiologist's Impressions: Impressions Head CT 04/03/22 13:38 IMPRESSION: -Acute intraparenchymal hemorrhage involving the marlen, approximately 2 cm in diameter. -No intraventricular or subarachnoid hemorrhage. Basal cisterns preserved. -Generalized atrophic changes. Old periventricular white matter gliosis and old left posterior frontal infarct. Cervical Spine CT 04/03/22 13:50 IMPRESSION: 1. No acute bony abnormality or prevertebral soft tissue swelling. 2. Right apical nodule 5 x 6 mm, beyond field of view on prior CT C-spine 2016. 3. Acute intraparenchymal hemorrhage marlen as noted on today's CT head. Chest X-Ray 04/03/22 14:14 IMPRESSION: 1. Endotracheal tube positioned approximately 3 cm proximal to darryl. 2. No acute cardiopulmonary process. Assessment and Plan (1) Comfort measures only status: Status: Acute Plan 76-year-old female with a past medical history of hypertension, hyperlipidemia, diabetes, history of TIA, blind in the left eye, anemia presented to the ER after a fall. Patient was waiting for a bus at the [facility], patient was later noted to be unresponsive; noted to have pontine hemorrhage. Given poor prognosis patient was made comfort measures only. Admitted to the hospital. Comfort measures only: Continue morphine IV Scopolamine patch Ativan p.r.n. Supplemental oxygen p.r.n. Quality Stroke Does the patient have a stroke diagnosis?: Yes Reason for No Anti-thrombotic by Day Two: Contraindicated VTE Prior VTE?: No VTE Risk Level:: Medical - moderate - high VTE Device Contraindication: Treatment Not Indicated VTE Drug Contraindication: Treatment Not Indicated
--- NOTE | 2022-04-04 09:50 | P.PNIM_ITS ---
Subjective Subjective Date of Service: 04/04/22 Interval History: cc: ams interval history: appears comfortable Review of Systems Review of Systems: Yes Unobtainable due to mental condition and Unobtainable due to mental status Physical Exam Vital Signs: Vital Signs: Last Vital Signs Temp 97.8 F 04/04/22 00:18 Pulse 71 04/04/22 00:20 Resp 16 04/04/22 00:20 BP 184/91 H 04/04/22 00:20 Pulse Ox 97 04/04/22 00:20 O2 Del Method 04/04/22 00:18 O2 Flow Rate 40 04/03/22 16:17 FiO2 100 04/03/22 14:15 BMI result Body Mass Index 21.7 General: comatous, bradypnea, appears comfortable Resp: unlaboured CVS: no edema GI: , non distended Neuro: comatous Objective Data Active Medications Glycopyrrolate (Glycopyrrolate 0.2 Mg/Ml Vial) 0.1 mg IVPUSH QID PRN PRN Reason: secretions Last Admin: 04/03/22 18:23 Dose: 0.1 mg Documented By: HERMELINDO Haloperidol Lactate (Haloperidol Lactate 10 Mg/5 Ml Oral.Conc) 1 mg SUBLINGUAL Q4H PRN PRN Reason: Anxiety/Restlessness/Delirium Nicardipine HCl 25 mg/ Sodium (Chloride) 260 mls @ 0 mls/hr IVCONT .Q0M [facility]; Protocol Last Titration: 04/03/22 14:23 Dose: 0 mg/hr, 0 mls/hr Documented By: LIZY Propofol (Diprivan) 1,000 mg in 100 mls @ 0 mls/hr IVCONT .Q0M [facility]; Protocol Last Titration: 04/03/22 16:06 Dose: 35 mcg/kg/min, 10.25 mls/hr Documented By: HERMELINDO Morphine Sulfate () 100 mg in 100 mls @ 0 mls/hr IVCONT .Q0M [facility]; Protocol Last Infusion: 04/04/22 00:20 Dose: 1 mg/hr, 1 mls/hr Documented By: MARCO A Lorazepam (Lorazepam 1 Mg Tablet) 2 mg SUBLINGUAL Q4H PRN PRN Reason: anxiety/restlessness Scopolamine (Scopolamine 1.5 Mg Patch.Td.3) 1.5 mg TRANSDERMA Q72H [facility] Last Admin: 04/03/22 18:22 Dose: 1.5 mg Documented By: HERMELINDO Sodium Chloride (0.9 % Sodium Chloride Flush 3 Ml Syringe) 3 ml IVFLUSH QSHIFT [facility] Last Admin: 04/04/22 00:07 Dose: Not Given Documented By: MARCO A Non-Admin Reason: IV Running Labs CBC & Chem 7: 04/03/22 13:53 04/03/22 13:53 Labs: Laboratory Results - last 24 hr 04/03/22 04/03/22 04/03/22 13:22 13:53 13:53 MCV 88.5 MCH 29.1 MCHC 32.9 RDW 14.2 Plt Count 165 MPV 10.2 Immature Gran % (Auto) 0.7 H Neut % (Auto) 57.6 Lymph % (Auto) 31.8 [place] % (Auto) 6.9 Eos % (Auto) 2.0 Baso % (Auto) 1.0 Lymph # (Auto) 1.3 [place] # (Auto) 0.3 Eos # (Auto) 0.1 Baso # (Auto) 0.0 Abs Immat Gran (auto) 0.03 Absolute Neuts (auto) 2.3 Absolute Nucleated RBC 0.000 Nucleated RBC % (auto) 0.0 PT INR Anion Gap Cancelled Estim Creat Clear Calc Cancelled Estimated GFR Cancelled POC Glucose 208 H Random Glucose Cancelled Lactic Acid Calcium Cancelled Magnesium Cancelled Total Bilirubin Cancelled Direct Bilirubin Cancelled AST Cancelled ALT Cancelled Alkaline Phosphatase Cancelled Total Creatine Kinase Cancelled Total Protein Cancelled Albumin Cancelled COVID-19 (PO) COVID-19 Clin Com 04/03/22 04/03/22 04/03/22 13:53 13:53 13:53 MCV MCH MCHC RDW Plt Count MPV Immature Gran % (Auto) Neut % (Auto) Lymph % (Auto) [place] % (Auto) Eos % (Auto) Baso % (Auto) Lymph # (Auto) [place] # (Auto) Eos # (Auto) Baso # (Auto) Abs Immat Gran (auto) Absolute Neuts (auto) Absolute Nucleated RBC Nucleated RBC % (auto) PT 12.5 INR 1.1 Anion Gap Estim Creat Clear Calc Estimated GFR POC Glucose Random Glucose Lactic Acid 1.0 Calcium Magnesium Total Bilirubin Direct Bilirubin AST ALT Alkaline Phosphatase Total Creatine Kinase Total Protein Albumin COVID-19 (PO) Negative COVID-19 Clin Com See Note Assessment and Plan (1) Intracranial bleeding: Status: Acute Plan 76F presented with ams, found to have large pontine hemorrhage. patient made comfort measures only. acute pontine hemorrhage complicated by coma comfort measure only scopolamine patch appears comfortable Quality Stroke Does the patient have a stroke diagnosis?: Yes Reason for No Anti-thrombotic by Day Two: Contraindicated VTE Prior VTE?: No VTE Risk Level:: Medical - moderate - high VTE Device Contraindication: Treatment Not Indicated VTE Drug Contraindication: Treatment Not Indicated
[2022-04-05] VITALS: RESP 12
--- NOTE | 2022-04-05 09:46 | HO.PM.IMPN ---
Subjective Subjective Date of Service: 04/05/22 Interval History: cc: ams interval history:appears comfortable Review of Systems Review of Systems: Yes Unobtainable due to mental status Physical Exam Vital Signs: Vital Signs: Last Vital Signs Temp 97.8 F 04/04/22 00:18 Pulse 71 04/04/22 00:20 Resp 12 04/05/22 00:00 BP 184/91 H 04/04/22 00:20 Pulse Ox 97 04/04/22 00:20 O2 Del Method 04/04/22 00:18 O2 Flow Rate 40 04/03/22 16:17 FiO2 100 04/03/22 14:15 BMI result Body Mass Index 21.7 General: comatous, bradypnea, appears comfortable Resp: unlaboured CVS: no edema GI: , non distended Neuro: comatous Objective Data Active Medications Glycopyrrolate (Glycopyrrolate 0.2 Mg/Ml Vial) 0.1 mg IVPUSH QID PRN PRN Reason: secretions Last Admin: 04/03/22 18:23 Dose: 0.1 mg Documented By: HERMELINDO Haloperidol Lactate (Haloperidol Lactate 10 Mg/5 Ml Oral.Conc) 1 mg SUBLINGUAL Q4H PRN PRN Reason: Anxiety/Restlessness/Delirium Morphine Sulfate () 100 mg in 100 mls @ 0 mls/hr IVCONT .Q0M [facility]; Protocol Last Infusion: 04/04/22 00:20 Dose: 1 mg/hr, 1 mls/hr Documented By: MARCO A Lorazepam (Lorazepam 1 Mg Tablet) 2 mg SUBLINGUAL Q4H PRN PRN Reason: anxiety/restlessness Scopolamine (Scopolamine 1.5 Mg Patch.Td.3) 1.5 mg TRANSDERMA Q72H [facility] Last Admin: 04/03/22 18:22 Dose: 1.5 mg Documented By: HERMELINDO Sodium Chloride (0.9 % Sodium Chloride Flush 3 Ml Syringe) 3 ml IVFLUSH QSHIFT [facility] Last Admin: 04/05/22 07:49 Dose: Not Given Documented By: SHERIF Non-Admin Reason: IV Running Labs CBC & Chem 7: 04/03/22 13:53 04/03/22 13:53 Microbiology Microbiology Results: Microbiology 04/03/22 13:53 Blood Culture - Preliminary Blood - Venous No growth after 24 hours. 04/03/22 13:53 Blood Culture - Preliminary Blood - Venous No growth after 24 hours. Assessment and Plan (1) Intracranial bleeding: Status: Acute Plan 76F presented with ams, found to have large pontine hemorrhage. patient made comfort measures only. acute pontine hemorrhage complicated by coma comfort measure only scopolamine patch appears comfortable no changes at this time Quality Stroke Does the patient have a stroke diagnosis?: Yes Reason for No Anti-thrombotic by Day Two: Contraindicated VTE Prior VTE?: No VTE Risk Level:: Medical - moderate - high VTE Device Contraindication: Treatment Not Indicated VTE Drug Contraindication: Treatment Not Indicated
[2022-04-05] MEDS: Morphine Sulfate/NS 100 MG/100 ML PLAST..BAG IVCONT ×2 (13:36→22:34)
[2022-04-05 22:34] VITALS: RESP 12
--- NOTE | 2022-04-06 11:11 | HO.PM.IMPN ---
Subjective Subjective Date of Service: 04/06/22 Interval History: Family at bedside Pt not responsive; moaning Review of Systems Review of Systems: Yes Unobtainable due to mental status Physical Exam Vital Signs: Vital Signs: Last Vital Signs Temp 97.8 F 04/04/22 00:18 Pulse 71 04/04/22 00:20 Resp 12 04/05/22 22:34 BP 184/91 H 04/04/22 00:20 Pulse Ox 97 04/04/22 00:20 O2 Del Method 04/04/22 00:18 O2 Flow Rate 40 04/03/22 16:17 FiO2 100 04/03/22 14:15 BMI result Body Mass Index 21.7 Gen: terminally ill, moaning HEENT: moist mucus membranes Lungs: clear to auscultation bilaterally Heart: regular rate and rhythm Abd: soft, non-tender Neuro: obtunded Objective Data Active Medications Glycopyrrolate (Glycopyrrolate 0.2 Mg/Ml Vial) 0.1 mg IVPUSH QID PRN PRN Reason: secretions Last Admin: 04/03/22 18:23 Dose: 0.1 mg Documented By: HERMELINDO Haloperidol Lactate (Haloperidol Lactate 10 Mg/5 Ml Oral.Conc) 1 mg SUBLINGUAL Q4H PRN PRN Reason: Anxiety/Restlessness/Delirium Morphine Sulfate () 100 mg in 100 mls @ 0 mls/hr IVCONT .Q0M [facility]; Protocol Last Infusion: 04/06/22 09:42 Dose: 3 mg/hr, 3 mls/hr Documented By: RON Scopolamine (Scopolamine 1.5 Mg Patch.Td.3) 1.5 mg TRANSDERMA Q72H [facility] Last Admin: 04/03/22 18:22 Dose: 1.5 mg Documented By: HERMELINDO Sodium Chloride (0.9 % Sodium Chloride Flush 3 Ml Syringe) 3 ml IVFLUSH QSHIFT [facility] Last Admin: 04/06/22 09:25 Dose: Not Given Documented By: RON Non-Admin Reason: IV Running Labs CBC & Chem 7: 04/03/22 13:53 04/03/22 13:53 Microbiology Microbiology Results: Microbiology 04/03/22 13:53 Blood Culture - Preliminary Blood - Venous No growth after 48 hours. 04/03/22 13:53 Blood Culture - Preliminary Blood - Venous No growth after 48 hours. 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
--- NOTE | 2022-04-06 15:15 | MHC.CM.PN ---
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
[2022-04-06 15:16] VITALS: BP 132/61; PULSE 84; RESP 10; TEMP 37.9; O2SAT 86
[2022-04-06] MEDS: Scopolamine 1.5 MG PATCH.TD.3 TRANSDERMA (16:09)
--- NOTE | 2022-04-06 18:25 | PC.NURSE ---
morphine drip in place, titrated per protocol. family members at bedside. pt repo'ed, OK'd by family. 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 safety and fall precautions maintained. pt assessed per protocol.
[2022-04-06 23:40] VITALS: RESP 4
[2022-04-07 06:58] VITALS: RESP 5
[2022-04-07 06:58] LABS: Prothrombin Time Whole Bld POC 13.6 sec (11.1-13.5); ~PT, ~INR - Anti Coag Clinic 1.1 (0.9-1.1)
[2022-04-07] MEDS: Morphine Sulfate/NS 100 MG/100 ML PLAST..BAG IVCONT (12:03)
--- NOTE | 2022-04-07 12:23 | HO.PM.IMPN ---
Subjective Subjective Date of Service: 04/07/22 Interval History: not moaning, appears comfortable Review of Systems Review of Systems: Yes Unobtainable due to mental status Physical Exam Vital Signs: Vital Signs: Last Vital Signs Temp 100.3 F 04/06/22 15:16 Pulse 84 04/06/22 15:16 Resp 5 L 04/07/22 06:58 BP 132/61 04/06/22 15:16 Pulse Ox 86 L 04/06/22 15:16 O2 Del Method 04/06/22 15:16 O2 Flow Rate 40 04/03/22 16:17 FiO2 100 04/03/22 14:15 BMI result Body Mass Index 21.7 Gen: in NAD, terminally ill-appearing HEENT: moist mucus membranes Lungs: clear to auscultation bilaterally Heart: regular rate and rhythm Abd: soft, non-tender Neuro: obtunded Objective Data Active Medications Glycopyrrolate (Glycopyrrolate 0.2 Mg/Ml Vial) 0.1 mg IVPUSH QID PRN PRN Reason: secretions Last Admin: 04/03/22 18:23 Dose: 0.1 mg Documented By: HERMELINDO Haloperidol Lactate (Haloperidol Lactate 10 Mg/5 Ml Oral.Conc) 1 mg SUBLINGUAL Q4H PRN PRN Reason: Anxiety/Restlessness/Delirium Morphine Sulfate () 100 mg in 100 mls @ 0 mls/hr IVCONT .Q0M [facility]; Protocol Last Admin: 04/07/22 12:03 Dose: 3 mg/hr, 3 mls/hr Documented By: CAROLE Scopolamine (Scopolamine 1.5 Mg Patch.Td.3) 1.5 mg TRANSDERMA Q72H [facility] Last Admin: 04/06/22 16:09 Dose: 1.5 mg Documented By: JOEY-SOFFA Sodium Chloride (0.9 % Sodium Chloride Flush 3 Ml Syringe) 3 ml IVFLUSH QSHIFT [facility] Last Admin: 04/07/22 08:37 Dose: Not Given Documented By: CAROLE Non-Admin Reason: IV Running Labs CBC & Chem 7: 04/03/22 13:53 04/03/22 13:53 Labs: Laboratory Results - last 24 hr 04/03/22 13:24 Whole Blood PT 13.6 H Whole Blood INR 1.1 Assessment and Plan (1) Intracranial bleeding: Status: Acute Plan hospital d#5 76yo F with HTN, HLD, DM2, hx TIA presenting with AMS and found to have large pontine hemorrhage, transitioned to DIRECTOR OF FIRST IMPRESSIONS # acute pontine hemorrhage complicated by coma - continue DIRECTOR OF FIRST IMPRESSIONS measures and increase morphine infusion as per protocol - scopalamine patch - prn lorazepam - family updated Quality Stroke Does the patient have a stroke diagnosis?: Yes Reason for No Anti-thrombotic by Day Two: Contraindicated VTE Prior VTE?: No VTE Risk Level:: Medical - moderate - high VTE Device Contraindication: Treatment Not Indicated VTE Drug Contraindication: Treatment Not Indicated
[2022-04-07 15:49] VITALS: RESP 8
[2022-04-08] VITALS: RESP 7
[2022-04-08 08:00] VITALS: RESP 5
--- NOTE | 2022-04-08 09:32 | P.PNIM_ITS ---
Subjective Subjective Date of Service: 04/08/22 Interval History: appears comfortable Review of Systems Review of Systems: Yes Unobtainable due to mental status Physical Exam Vital Signs: Vital Signs: Last Vital Signs Temp 100.3 F 04/06/22 15:16 Pulse 84 04/06/22 15:16 Resp 7 L 04/08/22 00:00 BP 132/61 04/06/22 15:16 Pulse Ox 86 L 04/06/22 15:16 O2 Del Method 04/06/22 15:16 O2 Flow Rate 40 04/03/22 16:17 FiO2 100 04/03/22 14:15 BMI result Body Mass Index 21.7 Gen: in NAD, terminally ill-appearing HEENT: moist mucus membranes Lungs: clear to auscultation bilaterally Heart: regular rate and rhythm Abd: soft, non-tender Neuro: obtunded Objective Data Active Medications Glycopyrrolate (Glycopyrrolate 0.2 Mg/Ml Vial) 0.1 mg IVPUSH QID PRN PRN Reason: secretions Last Admin: 04/03/22 18:23 Dose: 0.1 mg Documented By: HERMELINDO Haloperidol Lactate (Haloperidol Lactate 10 Mg/5 Ml Oral.Conc) 1 mg SUBLINGUAL Q4H PRN PRN Reason: Anxiety/Restlessness/Delirium Morphine Sulfate () 100 mg in 100 mls @ 0 mls/hr IVCONT .Q0M [facility]; Protocol Last Admin: 04/07/22 12:03 Dose: 3 mg/hr, 3 mls/hr Documented By: CAROLE Scopolamine (Scopolamine 1.5 Mg Patch.Td.3) 1.5 mg TRANSDERMA Q72H [facility] Last Admin: 04/06/22 16:09 Dose: 1.5 mg Documented By: [email or web address]-KYMFA Sodium Chloride (0.9 % Sodium Chloride Flush 3 Ml Syringe) 3 ml IVFLUSH QSHIFT [facility] Last Admin: 04/08/22 08:13 Dose: Not Given Documented By: CAROLE Non-Admin Reason: IV Running Labs CBC & Chem 7: 04/03/22 13:53 04/03/22 13:53 Assessment and Plan (1) Intracranial bleeding: Status: Acute Plan hospital d#6 76yo F with HTN, HLD, DM2, hx TIA presenting with AMS and 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
--- NOTE | 2022-04-08 09:46 | MHC.CM.PN ---
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
[2022-04-08] MEDS: Morphine Sulfate/NS 100 MG/100 ML PLAST..BAG IVCONT (14:04)
[2022-04-08 23:50] VITALS: RESP 14
--- NOTE | 2022-04-09 03:45 | PM.EVENT ---
Event Note Date of Service: 04/09/22 Event Note: Received message from nurse the patient , patient has no falls, no respiratory effort, pupils are dilated fixed and nonreactive Patient pronounced at 03:40
--- NOTE | 2022-04-09 08:14 | PM.DDS ---
Discharge Sum: Prov Provider Primary care physician: Wyatt Oreilly MD Admitting clinician: Neo Ford Pronouncing clinician: Eric Alcantara Discharge Sum: Diag Contributing Factors (1) Intracranial bleeding: (2) Pontine hemorrhage: Discharge Sum: Summary Date and Time Date of admission: 04/03/22 22:31 Date of : 04/09/22 Time of : 03:40 Summary Details: From admission H+P by Neo Ford, 04/04/22: 76-year-old female with a past medical history of hypertension, hyperlipidemia, diabetes, history of TIA, blind in the left eye, anemia presented to the ER after a fall.? Patient was waiting for a bus at the [facility], patient was later noted to be unresponsive; subsequently brought her to the ER. ER team noted that patient had sluggish reaction on the right pupil, nonreactive left pupil, regular rate and rhythm, patient noted to be grunting and had shallow breathing, GCS 7; immediately CT head and CT C-spine were ordered.? CT head showed 2 centimetre pontine hemorrhage; subsequently patient was intubated for airway protection; also placed a call to [facility] for neurosurgery evaluation; patient was given 1 g of Keppra.? ER team spoke to [facility] Neuro ICU- who mentioned no intervention, poor prognosis, no Neuro ICU beds; subsequently patient was accepted to medical ICU. Later ER team spoke to the patient's family in detail about the goals of care, given poor prognosis; finally dilation was made for METAL TECHNICIAN.? subsequently patient was generally extubated.? Started on morphine drip.? Admitted to the hospital. This 76yo F with HTN, HLD, DM2, hx TIA presenting with AMS was found to have a large pontine hemorrhage and admitted for METAL TECHNICIAN care. She on 04/09/22 at 03:40. Additional Data Confirmation of as documented by pronouncing clinician: no pulse, no respirations, no heart sounds and pupils fixed and dilated Attending physician: Shai Spring MD
== END 2022-04-09 05:53 | disposition expired | DRG 951 ==
LOC: HO.ED 17:40 → HO.EDOVER 22:37 → HO.S3 22:54
PROVIDERS: Nurse Practitioner Family; Admitting Provider Hospitalist; Emergency Provider Student in an Organized Health Care Education/Training Program; PCP Internal Medicine; Visit Provider Family Medicine
DX: Z51.5 Encounter for palliative care (principal); R40.20 Unspecified coma; I62.9 Nontraumatic intracranial hemorrhage, unspecified; H54.62 Unqualified visual loss, left eye, normal vision right eye; I10 Essential (primary) hypertension; E11.9 Type 2 diabetes mellitus without complications; Z20.822 Contact with and (suspected) exposure to COVID-19; I69.328 Other speech and language deficits following cerebral infarction; Z91.14 Patient's other noncompliance with medication regimen; Z79.84 Long term (current) use of oral hypoglycemic drugs; Z79.899 Other long term (current) drug therapy
CPT/HCPCS: 36415; 70450; 71045; 72125; 80048; 80076; 82550; 82947; 83605; 83735; 84484; 85025; 85610; 87040; 87635; 93005; 94002; 96365; 96366; 96375; 99285; C1758; J1953; J2150; J2270; J2405